=== PATIENT | female | born 1950 | race Caucasian/White ===

== ENCOUNTER → 2020-04-06 09:21 | Outpatient (BNVA) | payer MEDICARE, SELFPAY | PROVIDERS: PCP Nurse Practitioner Family; Referring Provider Nurse Practitioner Family; Visit Provider Nurse Practitioner Family | DX: I25.10 Atherosclerotic heart disease of native coronary artery without angina pectoris (principal); I48.0 Paroxysmal atrial fibrillation; I05.0 Rheumatic mitral stenosis; I73.9 Peripheral vascular disease, unspecified; I70.1 Atherosclerosis of renal artery; I10 Essential (primary) hypertension; E78.5 Hyperlipidemia, unspecified; E11.9 Type 2 diabetes mellitus without complications; Z79.01 Long term (current) use of anticoagulants; Z79.899 Other long term (current) drug therapy; Z95.2 Presence of prosthetic heart valve | CPT/HCPCS: 99214 ==

== ENCOUNTER → 2020-04-26 08:53 | Outpatient (BNVA) | payer MEDICARE, SELFPAY | PROVIDERS: PCP Nurse Practitioner Family; Referring Provider Nurse Practitioner Family; Visit Provider Internal Medicine Cardiovascular Disease | DX: I70.1 Atherosclerosis of renal artery (principal); I48.0 Paroxysmal atrial fibrillation; I50.32 Chronic diastolic (congestive) heart failure; I73.9 Peripheral vascular disease, unspecified; I44.7 Left bundle-branch block, unspecified; I05.0 Rheumatic mitral stenosis; I25.10 Atherosclerotic heart disease of native coronary artery without angina pectoris; I65.23 Occlusion and stenosis of bilateral carotid arteries; Z79.01 Long term (current) use of anticoagulants; Z95.2 Presence of prosthetic heart valve | CPT/HCPCS: 99205 ==

== ENCOUNTER 2020-04-29 08:23 | Outpatient (REF) | payer MEDICARE, SELFPAY ==
--- NOTE | 2020-04-29 08:28 | MM_ITS ---
EXAMINATION: MM SCREENING DIGITAL BREAST TOMOSYNTHESIS, BILATERAL CLINICAL INFORMATION: Screening. Asymptomatic. The lifetime risk of breast cancer based on the Tyrer-Cuzick Model is 3%. COMPARISON: Mammography: 08/10/2017, 06/19/2016 TECHNIQUE: Digital breast tomosynthesis is performed in both the craniocaudal and mediolateral oblique views along with computer-aided detection (CAD). Synthesized 2D images are generated from the tomosynthesis. FINDINGS: There are scattered areas of fibroglandular density (ACR BI-RADS breast composition Category b). Parenchymal pattern is similar to prior studies. There is no significant mass or architectural abnormality. Small circumscribed nodule central anterior right breast is stable 2016. Skin contours are smooth. There are scattered bilateral calcifications in each breast. There are some increased punctate calcifications anterior upper outer left breast for which patient will be recalled to fully characterize. There is no focal grouping or pleomorphic types suspected. MM/MM tomosynthesis screening BI IMPRESSION: 1. Left: Subtle increased punctate calcifications anterior upper outer left breast, likely benign. 2. Right: No mammographic evidence of malignancy. ASSESSMENT: BI-RADS 0: Incomplete - Need Additional Imaging Evaluation RECOMMENDATION: 1. Additional views of the left breast (magnification CC, magnification ML). 2. Radiology department staff will contact the patient for additional imaging. This patient's information was entered into a reminder system with a target due date for their next mammogram.
== END 2020-04-29 08:24 | disposition home or self-care (01) ==
LOC: HO.MAMMO 08:23
PROVIDERS: PCP Nurse Practitioner Family; Visit Provider Nurse Practitioner Family
DX: Z12.31 Encounter for screening mammogram for malignant neoplasm of breast (principal)
CPT/HCPCS: 77063; 77067

== ENCOUNTER 2020-05-06 12:32 | Outpatient (REF) | payer MEDICARE, SELFPAY ==
--- NOTE | 2020-05-06 | MM_ITS ---
EXAMINATION: MM DIAGNOSTIC DIGITAL MAMMOGRAPHY, LEFT CLINICAL INFORMATION: Left breast increasing calcifications. COMPARISON: Mammography: April 29, 2020 and studies dating back to March 30, 2015 TECHNIQUE: Digital mammography is performed in the following views: Magnification craniocaudal and 90 degree mediolateral views left breast FINDINGS: There are scattered areas of fibroglandular density (ACR BI-RADS breast composition Category b). The calcifications within the lateral aspect of the left breast are scattered and grouped and similar in appearance to calcifications seen elsewhere within both breasts. No branching forms identified. No associated soft tissue masses. Results are provided to the patient at time of visit by the technologist. MM/MM added views LT IMPRESSION: Probable benign left breast calcifications. 6 month follow-up magnification views recommended. ASSESSMENT: BI-RADS 3: Probably Benign RECOMMENDATION: Diagnostic mammography in 6 months. This patient's information was entered into a reminder system with a target due date for their next mammogram.
== END 2020-05-06 12:33 | disposition home or self-care (01) ==
LOC: HO.MAMMO 12:32
PROVIDERS: PCP Nurse Practitioner Family; Visit Provider Nurse Practitioner Family
DX: R92.1 Mammographic calcification found on diagnostic imaging of breast (principal)
CPT/HCPCS: 77065

== ENCOUNTER → 2020-07-19 08:21 | Outpatient (BNVA) | payer MEDICARE, SELFPAY | PROVIDERS: PCP Nurse Practitioner Family; Visit Provider Internal Medicine Cardiovascular Disease | DX: I50.9 Heart failure, unspecified (principal); I48.0 Paroxysmal atrial fibrillation; Z95.2 Presence of prosthetic heart valve; I70.1 Atherosclerosis of renal artery; I73.9 Peripheral vascular disease, unspecified; I44.7 Left bundle-branch block, unspecified; I25.10 Atherosclerotic heart disease of native coronary artery without angina pectoris; I05.0 Rheumatic mitral stenosis | CPT/HCPCS: 99212 ==

== ENCOUNTER 2020-07-20 13:00 | Outpatient (REF) | payer MEDICARE, SELFPAY ==
[2020-07-20 14:34] LABS: Estimated Average Glucose 151 mg/dL; Hemoglobin A1c % 6.9 %
[2020-07-20 14:36] LABS: Anion Gap 16 (12-20); Blood Urea Nitrogen 22 mg/dL (9-16); Calcium 9.1 mg/dL (8.4-10.2); Carbon Dioxide 29 mmol/L (22-29); Chloride 100 mmol/L (96-108); Cholesterol 155 mg/dL; Estimated Glomerular Filt Rate > 60; Glucose Fasting 175 mg/dL (60-99); HDL Cholesterol 45 mg/dL; LDL Cholesterol Calculated 84 mg/dl; Potassium 3.9 mmol/l (3.3-5.1); Sodium 141 mmol/L (135-145); Triglycerides 130 mg/dL
[2020-07-20 14:44] LABS: Creatinine Urine 155.53 mg/dL; Microalbum/Creatinine Ratio Ur 8.3 ug/mg cr
== END 2020-07-20 13:01 | disposition home or self-care (01) ==
LOC: HO.HMGCLDS 13:00
PROVIDERS: PCP Nurse Practitioner Family; Visit Provider Internal Medicine Cardiovascular Disease
DX: E11.9 Type 2 diabetes mellitus without complications (principal)
CPT/HCPCS: 36415; 80048; 80061; 82043; 83036

== ENCOUNTER 2020-11-05 11:16 | Outpatient (REF) | payer MEDICARE, SELFPAY ==
--- NOTE | ~2020-11-05 | MM_ITS ---
EXAMINATION: MM DIAGNOSTIC DIGITAL BREAST TOMOSYNTHESIS, LEFT CLINICAL INFORMATION: Short interval six-month follow-up probable benign regional increased calcifications left breast. The lifetime risk of breast cancer based on the Tyrer-Cuzick Model is 3%. COMPARISON: Mammography: 05/06/2020, 04/29/2020 (BI-RADS 0), 08/10/2017, 06/19/2016 TECHNIQUE: Digital breast tomosynthesis is performed in both the craniocaudal and mediolateral oblique views along with computer-aided detection (CAD). Synthesized 2D images are generated from the tomosynthesis. Additional magnification CC and magnification ML views are obtained. FINDINGS: There are scattered areas of fibroglandular density (ACR BI-RADS breast composition Category b). There are central anterior mid upper outer breast, early ductal secretory and round, similar to prior diagnostic exam. No significant changes from prior study. The remainder of the breast is unremarkable. Left breast calcifications will be reassessed again at time of annual bilateral mammography, due in 6 months. Results are provided to the patient at time of visit by the technologist. MM/MM tomosynthesis diagnostic LT IMPRESSION: Left breast calcifications, predominantly round and early ductal secretory, appear similar to prior diagnostic exam. No significant change. ASSESSMENT: BI-RADS 3: Probably Benign RECOMMENDATION: Diagnostic mammography at time of annual bilateral exam, due in 6 months. This patient's information was entered into a reminder system with a target due date for their next mammogram.
== END 2020-11-05 11:17 | disposition home or self-care (01) ==
LOC: HO.MAMMO 11:16
PROVIDERS: PCP Nurse Practitioner Family; Visit Provider Nurse Practitioner Family
DX: R92.1 Mammographic calcification found on diagnostic imaging of breast (principal)
CPT/HCPCS: 77061; 77065

== ENCOUNTER 2020-12-07 09:34 | Outpatient (REF) | payer MEDICARE, SELFPAY ==
--- NOTE | ~2020-12-07 | US_ITS ---
EXAMINATION: US EXTRACRANIAL CAROTID DUPLEX, BILATERAL CLINICAL INFORMATION: Carotid stenosis. COMPARISON: Previous exams, most recent December 2019. TECHNIQUE: Real-time ultrasound and Doppler techniques (integrating B-mode 2-D vascular images, Doppler spectral analysis and color-flow Doppler imaging) were utilized to interrogate the extracranial carotid arteries, the vertebral arteries and proximal subclavian arteries bilaterally. The degree of stenosis is determined by criteria similar to NASCET. FINDINGS: Right Side: 1. There is significant atherosclerotic plaque seen in the bifurcation/proximal ICA region. 2. The common carotid artery PSV proximally is 79 cm/s and distally 105 cm/s. 3. The proximal internal carotid artery velocities are 138 cm/s systolic and 28 cm/s diastolic. 4. The proximal external carotid artery PSV is 126 cm/s. 5. The vertebral artery shows antegrade flow. 6. The subclavian artery waveforms are normal. Left Side: 1. There is significant atherosclerotic plaque seen in the bifurcation/proximal ICA region. 2. The common carotid artery PSV proximally is 96 cm/s and distally 96 cm/s. 3. The proximal internal carotid artery velocities are 87 cm/s systolic and 27 cm/s diastolic. 4. The proximal external carotid artery PSV is 176 cm/s. 5. The vertebral artery shows antegrade flow. 6. The subclavian artery waveforms are normal. US/US carotid duplex BI IMPRESSION: 1. RIGHT: Significant atherosclerotic plaque. 50-79% right ICA stenosis stenosis by velocity criteria. 2. LEFT: Significant atherosclerotic plaque. 0-49% left ICA stenosis by velocity criteria. 3. There is no change in the category severity of disease when compared to the previous study dated December 2019.
== END 2020-12-07 09:35 | disposition home or self-care (01) ==
LOC: HO.US 09:34
PROVIDERS: Visit Provider Surgery Vascular Surgery
DX: I65.23 Occlusion and stenosis of bilateral carotid arteries (principal)
CPT/HCPCS: 93880

== ENCOUNTER → 2020-12-09 09:05 | Outpatient (BNVA) | payer MEDICARE, SELFPAY | PROVIDERS: PCP Nurse Practitioner Family; Visit Provider Surgery Vascular Surgery | DX: I65.23 Occlusion and stenosis of bilateral carotid arteries (principal); Z79.899 Other long term (current) drug therapy | CPT/HCPCS: Q3014 ==

== ENCOUNTER → 2020-12-31 09:22 | Outpatient (REF) | payer MEDICARE, SELFPAY ==
--- NOTE | 2020-12-31 09:26 | CA_ITS ---
Transthoracic Echocardiogram Patient (Last, First, Middle): Karishma Dwyer M Gender: Female Date of : 1950 Age: 70 Procedure Date: 12/31/2020 Procedure Type: Transthoracic Echocardiogram Location: OP Height: 167.64 cm Weight: 81.65 kg BSA: 1.91 m2 Heart Rate: bpm BP: 134 / 70 mmHg Senior Engineer: Mikala MD: Christo Andrew MD Anodizing Line Operator: Christo Andrew MD Symptoms: I50.9 - Heart failure, unspecified Study Quality: Fair ECG Rhythm: Sinus Conclusions: - 1. Normal LV systolic function with impaired relaxation filling pattern 2. Moderately dilated left atrium 3. Normally functioning bioprosthetic aortic valve with mean gradient of about 9 mm of mercury 2, similar to last year 4. Calcific mitral stenosis which appears to be at least moderate with mean gradient of 7.23 mm of mercury 5. No gross pericardial effusion Findings Left Ventricle Normal left ventricular size, thickness, and systolic function. The visually estimated ejection fraction is between 60-65%. Spectral Doppler is indicative of an impaired relaxation filling pattern. Right Ventricle Normal right ventricular cavity size and systolic function. Atria The left atrium is moderately dilated. There is no evidence of interatrial shunt. The right atrium is likely dilated. Aortic Valve A bioprosthetic aortic valve is present. The prosthetic aortic valve appears to be functioning normally. The aortic valve was not well visualized. The mean gradient is 9 mmHg. Mitral Valve There is severe anterior and posterior mitral leaflet thickening. There is moderate anterior and severe posterior mitral annular calcification. There is severe mitral annular calcification. There is mild to moderate mitral valve regurgitation. There is moderate mitral valve stenosis. Pulmonic Valve The pulmonic valve was not well visualized. Tricuspid Valve Likely normal tricuspid valve structure and function. Tricuspid regurgitation envelope is inadequate for calculation of right ventricular systolic pressure. Great Vessels All visible segments of the aorta are normal in size. The pulmonary artery was not well visualized. Venous The inferior vena cava is normal in size and collapses greater than 50% with inspiration. Pericardium/Pleural There is no evidence of pericardial effusion. Prior Study Comparison No significant change compared to prior study dated: 02/26/2020. Measurements 2D Linear Measurements RVIDd: 2.62 IVSd: 1.31 0.6-0.9/0.6-1.0 cm LVIDd: 4.96 3.9-5.3/4.2-5.9 cm LVIDs: 3.44 2.0-3.6 cm LVPWd: 0.93 0.7-1.1 cm Ao Root: 2.10 2.1-3.5 cm LA Diam: 4.70 2.7-3.8/3.0-4.0 cm LV Mass: 260.32 67-162/88-224 g LVOT Diam: 2.02 3.0+(-)1.3 cm Mitral Valve MV VTI: 0.64 MV Pk Jaydon: 1.96 MV Mn Jaydon: 1.29 MV Pk Grad: 15.36 MV Mn Grad: 7.23 MV Pk E: 1.51 MV PK A: 1.67 MV Decel Time: 476.87 E/A: 0.90 E'Lateral: 0.03 E'Medial: 0.04 PHT: 125.35 Decel [place]: 3.16 MR VTI: 1.78 Aortic Valve AoV Pk Jaydon: 2.19 AoV Mn Jaydon: 1.38 AoV VTI: 0.41 AoV Pk Grad: 19.23 Aov Mn Grad: 8.83 LVOT LVOT Pk Jaydon: 1.18 LVOT Mn Jaydon: 0.74 LVOT VTI: 0.25 LVOT Pk Grad: 5.57 LVOT Mn Grad: 2.58 LVOT Diam: 2.02 LVOT Area: 3.20 Diastolic Function MV Pk E: 1.51 MV Pk A: 1.67 E/A: 0.90 E'Medial: 0.04 E' Laterial: 0.03 Tricuspid Valve RA Press: 3.00 Great Vessels Aorta Ao Root-2D: 2.10 2.0-3.7 cm Ao Asc: 2.70 2.1-3.4 cm Ao Arch: 3.27 Updated in Other Vendor System with Status of Final Christo Andrew MD electronically signed on 01/01/2021 2:12:19 PM with status of Final
== END ==
LOC: HO.CARD 09:22
PROVIDERS: Visit Provider Internal Medicine Cardiovascular Disease
DX: I50.9 Heart failure, unspecified (principal); I44.7 Left bundle-branch block, unspecified; I05.0 Rheumatic mitral stenosis; I48.0 Paroxysmal atrial fibrillation; Z95.2 Presence of prosthetic heart valve
CPT/HCPCS: 93306

== ENCOUNTER → 2021-02-11 11:06 | Outpatient (BNVA) | payer MEDICARE, SELFPAY | PROVIDERS: PCP Nurse Practitioner Family; Referring Provider Nurse Practitioner Family; Visit Provider Internal Medicine Cardiovascular Disease | DX: J81.1 Chronic pulmonary edema (principal); I48.0 Paroxysmal atrial fibrillation; I05.0 Rheumatic mitral stenosis; Z95.2 Presence of prosthetic heart valve | CPT/HCPCS: Q3014 ==

== ENCOUNTER 2021-02-28 12:45 | Outpatient (REF) | payer MEDICARE, SELFPAY ==
--- NOTE | ~2021-02-28 | XR_ITS ---
EXAMINATION: XR CHEST CLINICAL INFORMATION: Chronic pulmonary edema. J81.1 COMPARISON: None TECHNIQUE: 2 views of the chest were obtained. FINDINGS: There is an intra-aortic stent graft/TAVR. The heart is normal in size. The vascularity is normal. There is no pneumothorax, vascular congestion, infiltrate, or effusion. The costophrenic sulci are clear. The hilar and mediastinal contours are normal. Bony structures show mild multilevel degenerative changes thoracic spine. There is a small bilobed circumscribed benign-appearing sclerotic lesion in the lateral left humeral head. No endosteal scalloping. No periostitis. XR/XR chest 2V IMPRESSION: Postsurgical changes. Heart size normal. No vascular congestion, infiltrate, or effusion.
[2021-02-28 14:42] LABS: Alanine Aminotransferase 40 U/L (0-31); Albumin Level 3.9 g/dL (3.5-5.0); Alkaline Phosphatase 79 U/L (39-117); Anion Gap 16 (12-20); Aspartate Amino Transferase 25 U/L (5-31); Bilirubin Total 0.7 mg/dL (0.0-1.0); Blood Urea Nitrogen 20 mg/dL (9-16); Calcium 9.3 mg/dL (8.4-10.2); Carbon Dioxide 27 mmol/L (22-29); Chloride 100 mmol/L (96-108); Estimated Glomerular Filt Rate > 60; Glucose Random 196 mg/dL (60-115); Sodium 139 mmol/L (135-145); Total Protein 6.5 g/dL (6.5-8.0)
== END 2021-02-28 12:46 | disposition home or self-care (01) ==
LOC: HO.HMGCX 12:45
PROVIDERS: PCP Nurse Practitioner Family; Visit Provider Internal Medicine Cardiovascular Disease
DX: J81.1 Chronic pulmonary edema (principal)
CPT/HCPCS: 36415; 71046; 80053

== ENCOUNTER 2021-03-03 08:43 | Outpatient (REF) | payer MEDICARE, SELFPAY ==
--- NOTE | ~2021-03-03 | MR_ITS ---
EXAMINATION: MR ANGIOGRAPHY ABDOMEN Interventional Radiologist: Kody Donald M.D., F.S.I.R., F.A.C.R. CLINICAL INFORMATION: This is a 71-year-old female with chronic pulmonary edema. Follow-up to ultrasound. COMPARISON: Comparison is made to a CT scan of the abdomen dated 05/13/2018. TECHNIQUE: An MR angiogram of the abdomen using 20 cc of Gadavist contrast. Images were evaluated on an independent dedicated 3-D workstation and 3-D images were reconstructed with concurrent radiologist supervision and subsequently interpreted. FINDINGS: There is diffuse irregular atherosclerotic disease within the infrarenal abdominal aorta. There is no abdominal aortic aneurysm. There is a high-grade stenosis at the origin of the left common iliac artery. There is irregular atherosclerotic plaque in the proximal left common iliac artery. There is occlusion at the origin of the right common iliac artery. There is severe disease in the bilateral iliac arteries. There is 50% narrowing at the origin of the celiac artery. There is 50% narrowing at the origin of the superior mesenteric artery. There is 75% narrowing at the origin of the inferior mesenteric artery. The renal arteries appear single bilaterally. The renal arteries originate within heavy atherosclerotic plaque of the abdominal aorta. There is 50% narrowing at the origin of the right renal artery. There is 75% narrowing at the origin of the left renal artery. There is diffuse disease bilaterally with in the mid and distal renal arteries. MR/MR angio abdomen wo/w con IMPRESSION: 1. There is diffuse irregular atherosclerotic disease within the abdominal aorta without evidence of abdominal aortic aneurysm. 2. There is a high-grade stenosis of left common iliac artery and occlusion of the right common iliac artery. 3. There is 50% narrowing of the right renal artery and 75% narrowing of the left renal artery.
== END 2021-03-03 08:44 | disposition home or self-care (01) ==
LOC: HO.MRI 08:43
PROVIDERS: PCP Nurse Practitioner Family; Visit Provider Internal Medicine Cardiovascular Disease
DX: J81.1 Chronic pulmonary edema (principal)
CPT/HCPCS: 74185; A9585

== ENCOUNTER → 2021-03-28 14:53 | Outpatient (BNVA) | payer MEDICARE, SELFPAY | PROVIDERS: PCP Nurse Practitioner Family; Referring Provider Nurse Practitioner Family; Visit Provider Internal Medicine Cardiovascular Disease | DX: J81.1 Chronic pulmonary edema (principal); I25.10 Atherosclerotic heart disease of native coronary artery without angina pectoris; I48.0 Paroxysmal atrial fibrillation; Z95.2 Presence of prosthetic heart valve | CPT/HCPCS: 99212 ==

== ENCOUNTER → 2021-04-07 10:54 | Outpatient (BNVA) | payer MEDICARE, SELFPAY | PROVIDERS: PCP Nurse Practitioner Family; Referring Provider Nurse Practitioner Family; Visit Provider Surgery Vascular Surgery | DX: I73.9 Peripheral vascular disease, unspecified (principal); I70.1 Atherosclerosis of renal artery | CPT/HCPCS: 99212 ==

== ENCOUNTER 2021-04-25 12:24 | Outpatient (REF) | payer MEDICARE, SELFPAY ==
--- NOTE | ~2021-04-25 | US_ITS ---
EXAMINATION: NONINVASIVE ASSESSMENT OF THE ARTERIES OF BOTH LOWER EXTREMITIES WITH BILATERAL LOWER EXTREMITY DUPLEX Interventional Radiologist: Kody Donald M.D., F.S.I.R., F.A.C.R. CLINICAL INFORMATION: Bilateral leg cramps. Coronary artery disease. Peripheral arterial disease. TECHNIQUE: Bilateral Doppler techniques with wave form analysis and measurement of velocities in the common femoral, profunda femoral, superficial femoral, popliteal and tibial arteries. The study was performed only at rest. COMPARISON: Comparison is made to the previous study dated 03/22/2020. There was no previous ankle-brachial index obtained. FINDINGS: a) AT REST: RIGHT LEG: Right direct duplex Doppler findings: There is luminal narrowing in the proximal and mid SFA is occluded. There is monophasic flow seen throughout the right lower extremity. There is partial reconstitution of the distal superficial femoral artery. There is shotty inguinal lymphadenopathy. This appears similar to the previous study. * Common femoral artery: 59 cm/s, Diastolic flow reversal: No * Superficial femoral artery (proximal, mid and distal): Occluded. Diastolic flow reversal: No * Popliteal artery: 27 cm/s. Previously, 22 cm/s, Diastolic flow reversal: No * Posterior tibial artery: 29 cm/s. Previously, 18 cm/s, Diastolic flow reversal: No * The right ankle-brachial index is 0.35. LEFT LEG: Left direct duplex Doppler findings: There may be an increasing stenosis in the common femoral artery. The left superficial femoral artery is occluded. There is is monophasic flow seen throughout the left lower extremity. There is shotty inguinal lymphadenopathy. * Common femoral artery: 239 cm/s. Previously, 129 cm/s, Diastolic flow reversal: No. This appears worse and may represent a developing stenosis. * Superficial femoral artery (proximal, mid, distal): Occluded. * Popliteal artery: 45 cm/s. Previously, 46 cm/s, Diastolic flow reversal: No * Posterior tibial artery: 41 cm/s. Previously, 20 cm/s, Diastolic flow reversal: No * The left ankle-brachial index is 0.56. SUNNY Reference: * >0.97-1.25 = normal - no significant arterial disease * 0.75-0.96 = mild peripheral arterial disease * 0.5-0.74 = moderate peripheral arterial disease * <0.50 = severe peripheral arterial disease US/US arterial duplex LE BI IMPRESSION: 1. Again noted are bilateral SFA occlusions. Possible increasing stenosis in the left common femoral artery. 2. Bilateral shotty inguinal lymphadenopathy.
== END 2021-04-25 12:25 | disposition home or self-care (01) ==
LOC: HO.US 12:24
PROVIDERS: PCP Nurse Practitioner Family; Visit Provider Surgery Vascular Surgery
DX: I73.9 Peripheral vascular disease, unspecified (principal)
CPT/HCPCS: 93923; 93925

== ENCOUNTER → 2021-05-03 14:18 | Outpatient (BNVA) | payer MEDICARE, SELFPAY | PROVIDERS: PCP Nurse Practitioner Family; Referring Provider Nurse Practitioner Family; Visit Provider Internal Medicine Cardiovascular Disease | DX: I25.10 Atherosclerotic heart disease of native coronary artery without angina pectoris (principal); J81.1 Chronic pulmonary edema; Z95.2 Presence of prosthetic heart valve | CPT/HCPCS: 99212 ==

== ENCOUNTER → 2021-05-05 13:56 | Outpatient (BNVA) | payer MEDICARE, SELFPAY | PROVIDERS: PCP Nurse Practitioner Family; Visit Provider Surgery Vascular Surgery | DX: I73.9 Peripheral vascular disease, unspecified (principal); I70.1 Atherosclerosis of renal artery | CPT/HCPCS: 99212 ==

== ENCOUNTER 2021-05-11 14:27 | Outpatient (REF) | payer MEDICARE, SELFPAY ==
--- NOTE | ~2021-05-11 | MM_ITS ---
EXAMINATION: MM DIAGNOSTIC DIGITAL BREAST TOMOSYNTHESIS, BILATERAL CLINICAL INFORMATION: Left breast calcifications. Right breast screening. The lifetime risk of breast cancer based on the Tyrer-Cuzick Model is 3.1%. COMPARISON: Mammography: 11/05/2020 and studies dating back to 11/16/2009. TECHNIQUE: Digital breast tomosynthesis is performed in both the craniocaudal and mediolateral oblique views along with computer-aided detection (CAD). Synthesized 2D images are generated from the tomosynthesis. Additional spot magnification views of the left breast in craniocaudal and 90-degree mediolateral views performed. FINDINGS: There are scattered areas of fibroglandular density (ACR BI-RADS breast composition Category b). No new abnormal mass or suspicious grouping of microcalcifications seen within the right breast. The lateral right breast calcifications appear essentially stable. One-year follow-up diagnostic mammography with left breast magnification views suggested. Results are provided to the patient at time of visit by the technologist. MM/MM tomosynthesis diagnostic BI IMPRESSION: There are no significant changes from prior study. ASSESSMENT: BI-RADS 3: Probably benign. RECOMMENDATION: Diagnostic mammography at time of next annual exam, due in 12 months. This patient's information was entered into a reminder system with a target due date for their next mammogram.
== END 2021-05-11 14:28 | disposition home or self-care (01) ==
LOC: HO.MAMMO 14:27
PROVIDERS: Visit Provider Nurse Practitioner Family
DX: R92.1 Mammographic calcification found on diagnostic imaging of breast (principal)
CPT/HCPCS: 77062; 77066

== ENCOUNTER 2021-05-17 06:38 | Outpatient (REF) | payer MEDICARE, SELFPAY ==
[2021-05-17 12:18] LABS: Alanine Aminotransferase 29 U/L (0-31); Albumin Level 4.3 g/dL (3.5-5.0); Alkaline Phosphatase 72 U/L (39-117); Anion Gap 12 (12-20); Aspartate Amino Transferase 20 U/L (5-31); Bilirubin Total 0.5 mg/dL (0.0-1.0); Blood Urea Nitrogen 17 mg/dL (9-16); Calcium 9.3 mg/dL (8.4-10.2); Carbon Dioxide 29 mmol/L (22-29); Chloride 103 mmol/L (96-108); Estimated Glomerular Filt Rate > 60; Glucose Random 131 mg/dL (60-115); Magnesium 1.9 mg/dL (1.6-2.6); Potassium 4.3 mmol/L (3.3-5.1); Sodium 140 mmol/L (135-145); Total Protein 6.9 g/dL (6.5-8.0)
== END 2021-05-17 06:39 | disposition home or self-care (01) ==
LOC: HO.HMGCLDS 06:38
PROVIDERS: PCP Nurse Practitioner Family; Visit Provider Surgery Vascular Surgery
DX: E87.8 Other disorders of electrolyte and fluid balance, not elsewhere classified (principal)
CPT/HCPCS: 36415; 80053; 83735

== ENCOUNTER 2021-05-19 07:47 | Outpatient (REF) | payer MEDICARE, SELFPAY ==
--- NOTE | ~2021-05-19 | CT_ITS ---
EXAMINATION: CTA ABDOMEN, PELVIS AND LOWER EXTREMITY RUNOFF WITH CONTRAST HISTORY: Peripheral vascular disease. DESCRIPTION: Routine abdominal aorta and lower extremity runoff CTA protocol with contrast was performed. 100 mL Omnipaque 350 was administered. Images were reviewed and processed on an independent dedicated 3-D workstation and 3-D images were reconstructed with concurrent radiologist supervision and subsequently interpreted. The images were reviewed and postprocessed on a dedicated 3-D workstation. COMPARISON: MRI abdomen on 03/03/2021. FINDINGS: VASCULAR: Heart: The visualized heart is normal in size. No pericardial effusion. Abdominal Aorta: Moderate to severe atherosclerosis. Normal caliber, widely patent. Mesenteric Arteries: The celiac axis, superior mesenteric artery and inferior mesenteric artery are patent. Renal Arteries: There is mild ostial stenosis of the right renal artery. The right renal artery is otherwise patent. There are 2 left renal arteries, the inferior of which is dominant. There is heavy calcification at the origin of the left inferior renal artery resulting in a greater than 50% stenosis. The inferior left renal artery is otherwise patent. The left superior renal artery is diminutive but patent. Inferior Vena Cava: Normal caliber. Right Lower Extremity: Common iliac artery: Occluded. External iliac artery: Multifocal moderate to high-grade stenosis. Diminutive in caliber. Internal iliac artery: Heavy atherosclerosis, likely occluded proximally with filling via collaterals. Common femoral artery: 75% stenosis related to plaque. Superficial femoral artery: Occluded. Distal reconstitution via deep muscular collaterals at the level of the distal thigh. Profunda femoris artery: Widely patent. Popliteal artery: Patent without high-grade stenosis. Anterior tibial artery: Patent to the foot. Posterior tibial artery: Mild multifocal stenosis however widely patent to the foot. Peroneal artery: Patent to the ankle. Left Lower Extremity: Common iliac artery: Multifocal moderate stenosis. External iliac artery: Multifocal high-grade stenosis, small caliber though patent. Internal iliac artery: Heavy calcification though appears patent. Common femoral artery: Heavy calcification, evaluation is somewhat limited due to beam hardening from an adjacent hip prosthesis. Likely 50-60% stenosed. Superficial femoral artery: Occluded. There is distal reconstitution at the level of the distal thigh via deep muscular collaterals. Profunda femoris artery: Normal caliber, widely patent. Popliteal artery: Normal caliber, widely patent. Anterior tibial artery: Occluded in the proximal calf. Posterior tibial artery: Calcification proximally results in [id number] stenosis however the INVESTMENT RECOVERY TECHNICIAN is patent to the foot. Peroneal artery: Patent to the ankle. NONVASCULAR: Lung Bases: The visualized lung bases are unremarkable. Liver: The liver is diffusely low in attenuation consistent with steatosis. No focal hepatic lesions identified. Gallbladder: Not visualized. Pancreas: Unremarkable. Spleen: Unremarkable. Adrenal Glands: Unremarkable. Kidneys and Ureters: Symmetric nephrograms. Mild bilateral renal cortical thinning. Subcentimeter hypodensities are too small to characterize. Bladder: Obscured by beam hardening from a left hip prosthesis. Gastrointestinal Tract: The small and large bowel are unremarkable. The appendix is unremarkable. Abdominal Wall: No significant hernia is appreciated. Lymph Nodes: Normal. Pelvis: Pelvic structures are poorly evaluated due to beam hardening. Osseous Structures: Left hip prosthesis in appropriate alignment. No suspicious lesions. CT/CT angio abd aorta runoff IMPRESSION: 1. Heavy aortic atherosclerotic disease without evidence of aneurysm. 2. The right common iliac artery is occluded. 3. The bilateral superficial femoral arteries are occluded. There is distal reconstitution of the bilateral SFAs at the distal thigh via collaterals. 4. Three-vessel runoff to the right lower extremity. 5. Two-vessel runoff to the left lower extremity.
[2021-05-19] MEDS: iohexoL 350 MG/ML 100 ML INFUS..BTL IV (09:09)
== END 2021-05-19 07:48 | disposition home or self-care (01) ==
LOC: HO.CT 07:47
PROVIDERS: PCP Nurse Practitioner Family; Visit Provider Surgery Vascular Surgery
DX: I73.9 Peripheral vascular disease, unspecified (principal)
CPT/HCPCS: 75635; Q9967

== ENCOUNTER → 2021-05-24 09:03 | Outpatient (BNVA) | payer MEDICARE, SELFPAY | PROVIDERS: PCP Nurse Practitioner Family; Visit Provider Surgery Vascular Surgery | DX: I73.9 Peripheral vascular disease, unspecified (principal); I70.1 Atherosclerosis of renal artery | CPT/HCPCS: 99212 ==

== ENCOUNTER → 2021-06-01 05:59 | Day surgery (SDC) | payer MEDICARE, SELFPAY ==
[2021-06-01 06:22] VITALS: BMI 28.4
[2021-06-01 06:25] VITALS: BMI 28.0
[2021-06-01 06:30] LABS: Basophils Percent Auto 0.1 % (0-2); Hematocrit 41.7 % (37.0-47.0); Hemoglobin 13.4 g/dl (12.0-16.0); Imm Gran Abs Auto 0.04 X10*3/uL (0.00-0.03); Imm Gran Pct Auto 0.4 % (0.0-0.4); Lymphocytes Absolute Auto 0.7 X10*3/uL (1.2-4.9); Lymphocytes Percent Auto 7.8 % (20-40); MANUAL DIFF FLAG SCAN; Mean Corpuscular HGB Conc 32.1 g/dl (31.0-35.0); Mean Corpuscular Hemoglobin 27.5 pg (27.0-33.0); Mean Corpuscular Volume 85.5 fL (80.0-98.0); Mean Platelet Volume 10.5 fL (9.4-12.3); Monocytes Absolute Auto 0.1 X10*3/uL (0.1-1.2); Monocytes Percent Auto 1.5 % (2-11); Neutrophils Absolute Auto 8.1 x10*3/uL (2.0-8.3); Neutrophils Percent Auto 90.2 % (45-73); Platelet Count 222 X10*3/uL (160-400); Red Blood Count 4.88 X10*6/uL (4.20-5.50); SCAN SMEAR FLAG 1
[2021-06-01 06:41] LABS: Glucose, Whole Blood 370 mg/dL (60-115)
[2021-06-01 06:50] LABS: Anion Gap 14 (12-20); Blood Urea Nitrogen 25 mg/dL (9-16); Calcium 9.9 mg/dL (8.4-10.2); Carbon Dioxide 26 mmol/L (22-29); Chloride 102 mmol/L (96-108); Creatinine Clr Calc Pharmacy 47.6; Estimated Glomerular Filt Rate 47; Glucose Random 424 mg/dL (60-115); Potassium 4.3 mmol/L (3.3-5.1); Sodium 138 mmol/L (135-145)
[2021-06-01 06:57] LABS: Prothrombin Time 11.7 SEC (9.9-13.0)
[2021-06-01 07:07] LABS: SLIDE REVIEW VERIFIED
== END ==
PROVIDERS: PCP Nurse Practitioner Family; Visit Provider Surgery Vascular Surgery
DX: I70.1 Atherosclerosis of renal artery (principal); Z53.09 Procedure and treatment not carried out because of other contraindication
CPT/HCPCS: 36415; 80048; 82947; 85025; 85610; 85730

== ENCOUNTER 2021-06-22 06:36 | Day surgery (SDC) | payer MEDICARE, SELFPAY ==
[2021-06-16 15:55] VITALS: BMI 28.4
[2021-06-22] VITALS (7 sets, daily range): BP systolic 128–151; BP diastolic 72–91; PULSE 78–96; RESP 16–20; TEMP 36.1–36.6; O2SAT 91–97
--- NOTE | 2021-06-22 07:02 | PC.NURSE ---
red area right groin dr forrest aware
[2021-06-22] MEDS: 0.9 % Sodium Chloride 1,000 ML 100 ML IVCONT (07:25)
[2021-06-22 07:48] LABS: Glucose, Whole Blood 383 mg/dL (60-115)
--- NOTE | 2021-06-22 09:24 | W.PM.OPN ---
Operative Note Operative Note Date of Service: 06/22/21 Narrative: Angiogram report from [facility] Preoperative diagnosis: Atherosclerosis of Left lower extremity with activity limiting claudication 2. Left renal artery stenosis Postoperative diagnosis: Same Procedure: 1. Ultrasound-guided left common femoral access 2. Aortogram with left lower extremity runoff 3. Left renal artery stenting 4. Left common iliac stenting Surgeon:Nathanael Medeiros M.D., FACS, RPVI Diving Fisher:None Anesthesia: Local with moderate conscious sedation. Total intraservice moderate sedation time was 60 minutes. I monitored the patient's level of consciousness and physiologic status continuously throughout the procedure. Specimens:none Drains:none Estimated blood loss: Less than 10 ml Implant: [employer] 6 x 14 renal stent; Medtr[employer] visi pro 8 x 17 balloon expandable stent Indications: 71-year-old female with significant peripheral vascular disease and history of renal artery stenosis presents for endovascular intervention. The patient has signed the informed consent after reviewing risks, complications, benefits, and alternatives previously discussed with the patient. The patient was given the opportunity to ask any additional questions or voice any concerns. All questions were answered to the patient's satisfaction. Procedure in detail: Patient was brought to the angiography suite prior to which a time-out was called for patient identification and site verification. Bilateral groins were prepped and draped in the standard surgical fashion. Under ultrasound guidance leftcommon femoral was punctured with micro puncture needle and wire. Subsequently a precision 4 [place] sheath was then placed. Clydewire was advanced to the level of the aorta. 4 [place] Flush catheter was brought up and parked at the level of the renal arteries. Aortogram was then undertaken. Catheter was brought down to the level of the iliac bifurcation. Iliacs were subsequently imaged. At this time we did magnification and orthogonal views of the renal arteries. We then administered 3000 units of systemic heparin. We brought in an angled 5 [place] sheath. We selectively cannulated the left renal artery with an 018 wire and a 4 [place] angled glide catheter. Once in position we advanced a 6 x 14 balloon expandable renal stent. Once into the ostium inappropriately placed with just a mm to into the aorta the stent was then deployed into the left renal artery. Once this was accomplished completion imaging was then undertaken. We then exchanged out for a short 6 [place] sheath. We turned our attention to the iliac. Prior to this an 035 glidewire Advantage was then placed. We then plasty did the common iliac with an 8 x 20 balloon and subsequently placed a visi Pro 8 x 17 balloon expandable stent. Completion imaging was then undertaken. StarClose closure device was then deployed. Interpretation of films: 1. Ultrasound demonstrates appropriate femoral puncture. Image of which was saved. 2. Aortogram demonstrates appropriate caliber aorta. Minimal disease. Appropriate take-off of the renals. 3. Iliac images demonstrate right-sided iliac occlusion left side high-grade stenosis at the common iliac rest of the iliac vessels were within normal limits with mild to moderate stenosis. 4. Left Leg Common femoral artery: Moderate disease Profundus Femoris: No significant disease Superficial femoral artery: Occlusion Popliteal artery (p1,p2,p3): Unable to visualize Anterior tibial artery: Unable to visualize Peroneal artery: Unable to visualize Posterior tibial artery: Unable to visualize Dorsalis pedis/plantar arch: Not seen Conclusion: 1. Successful left renal artery stent and left iliac stent 2. Anticoagulation status: Continue with aspirin and Eliquis This note is constructed using voice recognition software. While every effort has been made to ensure accuracy, firer diesel locomotive errors may have been included. Thank you for allowing me to participate in the care of your patient. Yours sincerely, Nathanael Medeiros MD, FACS, R.P.V.I.
== END 2021-06-22 11:38 | disposition home or self-care (01) ==
PROVIDERS: PCP Nurse Practitioner Family; Visit Provider Surgery Vascular Surgery
DX: E11.51 Type 2 diabetes mellitus with diabetic peripheral angiopathy without gangrene (principal); I70.212 Atherosclerosis of native arteries of extremities with intermittent claudication, left leg; Z79.4 Long term (current) use of insulin; I70.1 Atherosclerosis of renal artery; I65.29 Occlusion and stenosis of unspecified carotid artery; I11.0 Hypertensive heart disease with heart failure; I50.9 Heart failure, unspecified; I05.0 Rheumatic mitral stenosis; I25.10 Atherosclerotic heart disease of native coronary artery without angina pectoris; I48.0 Paroxysmal atrial fibrillation; Z95.4 Presence of other heart-valve replacement; I35.0 Nonrheumatic aortic (valve) stenosis; Z87.891 Personal history of nicotine dependence; Z91.041 Radiographic dye allergy status; Z91.040 Latex allergy status; Z88.0 Allergy status to penicillin
CPT/HCPCS: 37221; 37236; 76937; 82947; 99152; 99153; C1725; C1760; C1769; C1876; C1887; C1894; J2250; J3010; Q9967

== ENCOUNTER 2021-06-30 06:56 | Outpatient (REF) | payer MEDICARE, SELFPAY ==
[2021-06-30 11:19] LABS: Appearance Urine CLEAR; Color Urine YELLOW; Glucose Urine UA 250 MG/DL (NEG); Leukocyte Esterase Urine NEG (NEG); Nitrite Urine NEG (NEG); PH 5.5 (5.0-8.0); Specific Gravity - Urine 1.025 (1.005-1.025); UACC Culture Trigger NO; Urine Blood TRACE (NEG); Urine Ketones NEG (NEG); Urine Protein NEG (NEG-TRACE)
[2021-06-30 11:21] LABS: Estimated Average Glucose 194 mg/dL; Hemoglobin A1c % 8.4 %
[2021-06-30 11:54] LABS: Alanine Aminotransferase 30 U/L (0-31); Albumin Level 4.2 g/dL (3.5-5.0); Alkaline Phosphatase 105 U/L (39-117); Anion Gap 13 (12-20); Aspartate Amino Transferase 14 U/L (5-31); Bilirubin Total 0.6 mg/dL (0.0-1.0); Blood Urea Nitrogen 23 mg/dL (9-16); Calcium 9.7 mg/dL (8.4-10.2); Carbon Dioxide 29 mmol/L (22-29); Chloride 102 mmol/L (96-108); Cholesterol 116 mg/dL; Estimated Glomerular Filt Rate 54; Glucose Random 219 mg/dL (60-115); HDL Cholesterol 35 mg/dL; LDL Cholesterol Calculated 52 mg/dl; Potassium 4.3 mmol/L (3.3-5.1); Sodium 140 mmol/L (135-145); Total Protein 7.2 g/dL (6.5-8.0); Triglycerides 149 mg/dL
[2021-06-30 11:58] LABS: TSH reflex Free T4 1.19 uIU/mL (0.32-4.0)
[2021-06-30 12:01] LABS: Calcium Oxalate Crystals Urine 2+ /LPF; Squamous Epithelial Cell Urine 1+ /LPF
[2021-06-30 12:02] LABS: Creatinine Urine 134.66 mg/dL; Microalbum/Creatinine Ratio Ur 6.6 ug/mg cr; RBC Urine 0-2 /HPF (0); WBC Urine 0 /HPF (0-4)
== END 2021-06-30 06:57 | disposition home or self-care (01) ==
LOC: HO.HMGCLDS 06:56
PROVIDERS: PCP Nurse Practitioner Family; Visit Provider Nurse Practitioner Family
DX: E11.9 Type 2 diabetes mellitus without complications (principal)
CPT/HCPCS: 36415; 80053; 80061; 81001; 82043; 83036; 84443

== ENCOUNTER → 2021-07-07 09:02 | Outpatient (BNVA) | payer MEDICARE, SELFPAY | PROVIDERS: PCP Nurse Practitioner Family; Visit Provider Surgery Vascular Surgery | DX: I73.9 Peripheral vascular disease, unspecified (principal); I70.1 Atherosclerosis of renal artery | CPT/HCPCS: 99212 ==

== ENCOUNTER 2021-08-15 07:19 | Outpatient (REF) | payer MEDICARE, SELFPAY ==
[2021-08-15 12:08] LABS: Anion Gap 13 (12-20); Blood Urea Nitrogen 24 mg/dL (9-16); Calcium 9.7 mg/dL (8.4-10.2); Carbon Dioxide 30 mmol/L (22-29); Chloride 101 mmol/L (96-108); Estimated Glomerular Filt Rate 53; Glucose Random 174 mg/dL (60-115); Potassium 4.2 mmol/L (3.3-5.1); Sodium 140 mmol/L (135-145)
[2021-08-15 16:36] LABS: Urine Cytology See Pathology rpt
[2021-08-15 16:52] LABS: Appearance Urine CLEAR; Color Urine YELLOW; Glucose Urine UA 500 MG/DL (NEG); Leukocyte Esterase Urine NEG (NEG); Nitrite Urine POS (NEG); PH 5.5 (5.0-8.0); Specific Gravity - Urine 1.025 (1.005-1.025); UACC Culture Trigger YES; Urine Blood NEG (NEG); Urine Ketones NEG (NEG); Urine Protein NEG (NEG-TRACE)
[2021-08-15 17:49] LABS: Bacteria Urine 4+ /LPF; Calcium Oxalate Crystals Urine 4+ /LPF; RBC Urine 0 /HPF (0); Squamous Epithelial Cell Urine 2+ /LPF; WBC Urine 0 /HPF (0-4)
== END 2021-08-15 07:20 | disposition home or self-care (01) ==
LOC: HO.HMGCLDS 07:19
PROVIDERS: Surgery Vascular Surgery; Visit Provider Nurse Practitioner Family
DX: R31.29 Other microscopic hematuria (principal); I50.9 Heart failure, unspecified
CPT/HCPCS: 36415; 80048; 81001; 81003; 87086; 87088; 87186; 88112

== ENCOUNTER → 2021-08-30 09:06 | Outpatient (BNVA) | payer MEDICARE, SELFPAY | PROVIDERS: PCP Nurse Practitioner Family; Referring Provider Nurse Practitioner Family; Visit Provider Internal Medicine Cardiovascular Disease | DX: I48.0 Paroxysmal atrial fibrillation (principal); I25.10 Atherosclerotic heart disease of native coronary artery without angina pectoris; I05.0 Rheumatic mitral stenosis; J81.1 Chronic pulmonary edema; Z95.2 Presence of prosthetic heart valve | CPT/HCPCS: 99212 ==

== ENCOUNTER 2021-09-12 15:17 | Outpatient (REF) | payer MEDICARE, SELFPAY ==
--- NOTE | ~2021-09-12 | CT_ITS ---
EXAMINATION: CTA ABDOMEN, PELVIS AND LOWER EXTREMITY RUNOFF WITH CONTRAST HISTORY: Peripheral vascular disease. DESCRIPTION: Routine abdominal aorta and lower extremity runoff CTA protocol with contrast was performed. 100 mL Omnipaque 350 was administered. Images were reviewed and processed on an independent dedicated 3-D workstation and 3-D images were reconstructed with concurrent radiologist supervision and subsequently interpreted. The images were reviewed and postprocessed on a dedicated 3-D workstation. COMPARISON: CTA runoff on May 19, 2021, MRI abdomen on 03/03/2021. FINDINGS: VASCULAR: Heart: The visualized heart is normal in size. No pericardial effusion. Abdominal Aorta: Moderate to severe atherosclerosis. Normal caliber, widely patent. Mesenteric Arteries: The celiac axis, superior mesenteric artery and inferior mesenteric artery are patent. Renal Arteries: There is mild ostial stenosis of the right renal artery. The right renal artery is otherwise patent. There are 2 left renal arteries, the inferior of which is dominant. There is heavy calcification at the origin of the left inferior renal artery resulting in a greater than 50% stenosis. The inferior left renal artery is otherwise patent. The left superior renal artery is diminutive but patent. Inferior Vena Cava: Normal caliber. Right Lower Extremity: Common iliac artery: Occluded. External iliac artery: Multifocal moderate to high-grade stenosis. Diminutive in caliber. Internal iliac artery: Heavy atherosclerosis, likely occluded proximally with filling via collaterals. Common femoral artery: 75% stenosis related to plaque. Superficial femoral artery: Occluded. Distal reconstitution via deep muscular collaterals at the level of the distal thigh. Profunda femoris artery: Widely patent. Popliteal artery: Patent without high-grade stenosis. Anterior tibial artery: Patent to the foot. Posterior tibial artery: Mild multifocal stenosis however widely patent to the foot. Peroneal artery: Patent to the ankle. Left Lower Extremity: Common iliac artery: Multifocal moderate stenosis. External iliac artery: Multifocal high-grade stenosis, small caliber though patent. Internal iliac artery: Heavy calcification though appears patent. Common femoral artery: Heavy calcification, evaluation is somewhat limited due to beam hardening from an adjacent hip prosthesis. Likely than 60% stenosed. Superficial femoral artery: Occluded. There is distal reconstitution at the level of the distal thigh via deep muscular collaterals. Profunda femoris artery: Normal caliber, widely patent. Popliteal artery: Normal caliber, widely patent. Anterior tibial artery: Occluded in the proximal calf. Posterior tibial artery: Calcification proximally results in [id number] stenosis however the OPHTHALMIC AIDE is patent to the foot. Peroneal artery: Patent to the ankle. NONVASCULAR: Lung Bases: The visualized lung bases are unremarkable. Liver: The liver is diffusely low in attenuation consistent with steatosis. No focal hepatic lesions identified. Gallbladder: Not visualized. Pancreas: Unremarkable. Spleen: Unremarkable. Adrenal Glands: Unremarkable. Kidneys and Ureters: Symmetric nephrograms. Mild bilateral renal cortical thinning. Subcentimeter hypodensities are too small to characterize. Bladder: Obscured by beam hardening from a left hip prosthesis. Gastrointestinal Tract: The small and large bowel are unremarkable. The appendix is unremarkable. Abdominal Wall: No significant hernia is appreciated. Lymph Nodes: Normal. Pelvis: Pelvic structures are poorly evaluated due to beam hardening. Osseous Structures: Left hip prosthesis in appropriate alignment. No suspicious lesions. CT/CT angio abd aorta runoff IMPRESSION: 1. No significant change from May 19, 2021. Heavy aortic atherosclerotic disease without evidence of aneurysm. 2. The right common iliac artery is occluded. 3. The bilateral superficial femoral arteries are occluded. There is distal reconstitution of the bilateral SFAs at the distal thigh via collaterals. 4. Three-vessel runoff to the right lower extremity. 5. Two-vessel runoff to the left lower extremity.
[2021-09-12] MEDS: iohexoL 350 MG/ML 100 ML INFUS..BTL IV (16:21)
== END 2021-09-12 15:18 | disposition home or self-care (01) ==
LOC: HO.CT 15:17
PROVIDERS: Visit Provider Surgery Vascular Surgery
DX: I70.1 Atherosclerosis of renal artery (principal)
CPT/HCPCS: 75635; Q9967

== ENCOUNTER 2021-10-03 10:24 | Outpatient (REF) | payer MEDICARE, SELFPAY ==
--- NOTE | ~2021-10-03 | US_ITS ---
EXAMINATION: NONINVASIVE ASSESSMENT OF THE ARTERIES OF BOTH LOWER EXTREMITIES WITH PVR EXAM AND BILATERAL LOWER EXTREMITY DUPLEX CLINICAL INFORMATION: Peripheral vascular disease. TECHNIQUE: Ankle pulse volume recordings, ankle pressure measurements and ankle brachial indices were obtained of the lower extremity arterial system bilaterally. Additionally, duplex Doppler techniques were used with wave form analysis and measurement of velocities in the common femoral, profunda femoral, superficial femoral, popliteal and tibial arteries. The study was performed only at rest. COMPARISON: None. FINDINGS: ANKLE-BRACHIAL INDEX: Right: Not obtained, inaudible Left: 0.6. PVR WAVEFORM: Right: Irregular, abnormal Left: Dampened, loss of dicrotic notch DIRECT DUPLEX DOPPLER FINDINGS: RIGHT LEG: Common femoral artery: 96 cm/s, diastolic flow reversal: No. Profunda femoris artery: 71 cm/s, diastolic flow reversal: No. Superficial femoral artery: Occluded Popliteal artery: 35 cm/s, diastolic flow reversal: No. Posterior tibial artery: 30cm/s, diastolic flow reversal: No. Peroneal artery: Not visualized LEFT LEG: Common femoral artery: 137 cm/s, diastolic flow reversal: No. Profunda femoris artery: 119 cm/s, diastolic flow reversal: No. Superficial femoral artery: Occluded Popliteal artery: 39 cm/s, diastolic flow reversal: No. Posterior tibial artery: 55cm/s, diastolic flow reversal: No. Peroneal artery: 32.6cm/s, diastolic flow reversal: No. US/US arterial duplex LE BI IMPRESSION: RIGHT LEG: SUNNY unable to be obtained. Duplex ultrasound reveals monophasic waveforms within the common femoral artery consistent with known inflow disease. The SFA is persistently occluded. Monophasic flow is present within the posterior tibial artery. The peroneal artery is not visualized. LEFT LEG: SUNNY is 0.6. Flow within the left common femoral and profunda femoris arteries is turbulent. The SFA is persistently occluded. Flow is identified within the posterior tibial and peroneal arteries. SUNNY REFERENCE: - >0.97-1.25 = normal - no significant arterial disease. - 0.75-0.96 = mild peripheral arterial disease. - 0.5-0.74 = moderate peripheral arterial disease. - <0.50 = severe peripheral arterial disease.
== END 2021-10-03 10:25 | disposition home or self-care (01) ==
LOC: HO.US 10:24
PROVIDERS: PCP Nurse Practitioner Family; Visit Provider Surgery Vascular Surgery
DX: I73.9 Peripheral vascular disease, unspecified (principal); I77.1 Stricture of artery
CPT/HCPCS: 93923; 93925

== ENCOUNTER → 2021-10-11 10:14 | Outpatient (BNVA) | payer MEDICARE, SELFPAY | PROVIDERS: PCP Nurse Practitioner Family; Visit Provider Surgery Vascular Surgery | DX: I73.9 Peripheral vascular disease, unspecified (principal); I70.1 Atherosclerosis of renal artery | CPT/HCPCS: 99212 ==

== ENCOUNTER → 2021-10-13 08:50 | Outpatient (BNVA) | payer MEDICARE, SELFPAY | PROVIDERS: PCP Nurse Practitioner Family; Referring Provider Nurse Practitioner Family; Visit Provider Internal Medicine Cardiovascular Disease | DX: I50.32 Chronic diastolic (congestive) heart failure (principal); I05.0 Rheumatic mitral stenosis; I48.0 Paroxysmal atrial fibrillation; I25.10 Atherosclerotic heart disease of native coronary artery without angina pectoris; Z95.2 Presence of prosthetic heart valve | CPT/HCPCS: 99212 ==

== ENCOUNTER 2021-11-23 13:48 | Outpatient (REF) | payer MEDICARE, SELFPAY ==
--- NOTE | ~2021-11-23 | MM_ITS ---
EXAMINATION: BONE DENSITOMETRY CLINICAL INDICATION: Menopausal. COMPARISON: Baseline BD dated 09/19/2016. TECHNIQUE: Using a [employer] DXA System (software version: 13.1) manufactured by [employer], dual-energy x-ray absorptiometry was performed of the lumbar spine and right hip. Patient with left hip replacement. The images are of good technical quality. Summary results are attached. FINDINGS: AP SPINE L1-L4: Current: BMD 1.595 g/cm2, Z-score 4.6, T-score 3.5, normal, 6.9% increase from baseline (<5% change is not significant). Baseline: BMD 1.492 g/cm2. RIGHT FEMUR, NECK: Current: BMD 0.905 g/cm2, Z-score 0.5, T-score -1.0, normal. Baseline: BMD 1.020 g/cm2. RIGHT FEMUR, TOTAL: Current: BMD 0.899 g/cm2, Z-score 0.3, T-score -0.9, normal, 17.6% decrease from baseline (<5% change is not significant). Baseline: BMD 1.091 g/cm2. IDENTIFIED RISK FACTORS: Early menopause, history of fracture (adult), hysterectomy, secondary osteoporosis. HISTORY OF FRACTURE: Lower leg, hip replacement. MEDICATIONS: Vitamin D. MM/XR DEXA axial skeleton IMPRESSION: 1. DIAGNOSIS: Normal bone density based on the lowest T-score value of -1.0 in the femoral neck applying World Health Organization criteria. 2. 10-YEAR FRACTURE RISK PREDICTION, FRAX: According to the guidelines, FRAX calculation should only be performed on patients in the osteopenia bone density category. Therefore, FRAX was not performed on this patient. 3. Treatment Recommendations: NOF guidelines recommend consideration for treatment in postmenopausal women and men age 50 and older presenting with the following: -A hip or vertebral (clinical or morphometric) fracture. -T-score less than or equal to -2.5 at the femoral neck or spine after appropriate evaluation to exclude secondary causes. -Low bone mass at the hip or spine and a 10-year fracture probability by FRAX of greater than or equal to 3% for hip fracture or greater than or equal to 20% for major osteoporotic fracture based on the [place] adapted WHO algorithm. 4. Other Recommendations: All treatment decisions require clinical judgment and consideration of individual patient factors, including patient preferences, comorbidities, previous drug use, risk factors not captured in the FRAX model (e.g. frailty, falls, vitamin D deficiency, increased bone turnover, interval significant decline in bone density) and possible under or overestimation of fracture risk by FRAX. FUTURE SCAN RECOMMENDATION: People with diagnosed cases of osteoporosis or at high risk for fracture should have regular bone mineral density tests. For patients eligible for Medicare, routine testing is allowed once every 2 years. The testing frequency can be increased to one year for patients who have rapidly progressing disease, those who are receiving or discontinuing medical therapy to restore bone mass, or have additional risk factors.
== END 2021-11-23 13:49 | disposition home or self-care (01) ==
LOC: HO.MAMMO 13:48
PROVIDERS: PCP Nurse Practitioner Family; Visit Provider Nurse Practitioner Family
DX: Z13.820 Encounter for screening for osteoporosis (principal); Z78.0 Asymptomatic menopausal state
CPT/HCPCS: 77080

== ENCOUNTER → 2021-12-13 09:40 | Outpatient (BNVA) | payer MEDICARE, SELFPAY | PROVIDERS: PCP Nurse Practitioner Family; Referring Provider Nurse Practitioner Family; Visit Provider Internal Medicine Cardiovascular Disease | DX: I50.32 Chronic diastolic (congestive) heart failure (principal); I48.0 Paroxysmal atrial fibrillation; I25.10 Atherosclerotic heart disease of native coronary artery without angina pectoris; Z95.2 Presence of prosthetic heart valve | CPT/HCPCS: 99212 ==

== ENCOUNTER 2022-01-05 09:01 | Outpatient (REF) | payer MEDICARE, SELFPAY ==
--- NOTE | ~2022-01-05 | XR_ITS ---
EXAMINATION: XR HIP, RIGHT CLINICAL INFORMATION: Pain right hip COMPARISON: None TECHNIQUE: Two views of the right hip. FINDINGS: There is a moderate loss of right hip joint space with periarticular spurring. No visible acute fracture, dislocation or lytic process seen. SI joints are symmetrical. Incidental finding of partially visualized left total hip prosthesis. XR/XR hip RT min 2V IMPRESSION: Mild degenerative changes right hip joint. No visible acute fracture or dislocation seen. The right hemipelvis appears unremarkable.
--- NOTE | ~2022-01-05 | XR_ITS ---
EXAMINATION: XR WRIST, LEFT CLINICAL INFORMATION: Left wrist pain. COMPARISON: None TECHNIQUE: PA, lateral, and oblique views of the left wrist. FINDINGS: The bones and soft tissues are normal. No fracture. Alignment is anatomic with normal joint spaces. No erosions or abnormal soft tissue calcifications. XR/XR wrist LT 2V IMPRESSION: Unremarkable left wrist exam.
[2022-01-05 09:10] LABS: MANUAL DIFF FLAG NO
[2022-01-05 11:31] LABS: Basophils Percent Auto 0.7 % (0-2); Eosinophils Absolute Auto 0.1 X10*3/uL (0.0-0.4); Eosinophils Percent Auto 1.9 % (0-4); Hematocrit 40.2 % (37.0-47.0); Hemoglobin 12.9 g/dl (12.0-16.0); Imm Gran Abs Auto 0.01 X10*3/uL (0.00-0.03); Imm Gran Pct Auto 0.2 % (0.0-0.4); Lymphocytes Absolute Auto 1.3 X10*3/uL (1.2-4.9); Lymphocytes Percent Auto 31.3 % (20-40); Mean Corpuscular HGB Conc 32.1 g/dl (31.0-35.0); Mean Corpuscular Hemoglobin 27.6 pg (27.0-33.0); Mean Corpuscular Volume 85.9 fL (80.0-98.0); Mean Platelet Volume 10.7 fL (9.4-12.3); Monocytes Absolute Auto 0.5 X10*3/uL (0.1-1.2); Monocytes Percent Auto 11.5 % (2-11); Neutrophils Absolute Auto 2.3 x10*3/uL (2.0-8.3); Neutrophils Percent Auto 54.4 % (45-73); Platelet Count 209 X10*3/uL (160-400); Red Blood Count 4.68 X10*6/uL (4.20-5.50); Red Cell Distribution Width 13.8 % (11.0-16.0); White Blood Count 4.2 X10*3/uL (4.8-10.8)
[2022-01-05 11:38] LABS: Estimated Average Glucose 177 mg/dL; Hemoglobin A1c % 7.8 %
[2022-01-05 11:57] LABS: Appearance Urine HAZY; Color Urine YELLOW; Glucose Urine UA NEG (NEG); Leukocyte Esterase Urine NEG (NEG); Nitrite Urine POS (NEG); PH 5.5 (5.0-8.0); Specific Gravity - Urine 1.025 (1.005-1.025); UACC Culture Trigger YES; Urine Blood NEG (NEG); Urine Ketones NEG (NEG); Urine Protein NEG (NEG-TRACE)
[2022-01-05 12:05] LABS: TSH reflex Free T4 1.01 uIU/mL (0.32-4.0)
[2022-01-05 12:11] LABS: Alanine Aminotransferase 42 U/L (0-31); Albumin Level 4.3 g/dL (3.5-5.0); Alkaline Phosphatase 80 U/L (39-117); Anion Gap 15 (12-20); Aspartate Amino Transferase 31 U/L (5-31); Bilirubin Total 0.7 mg/dL (0.0-1.0); Blood Urea Nitrogen 18 mg/dL (9-16); Carbon Dioxide 28 mmol/L (22-29); Chloride 101 mmol/L (96-108); Cholesterol 101 mg/dL; Estimated Glomerular Filt Rate 57; Glucose Fasting 171 mg/dL (60-99); HDL Cholesterol 36 mg/dL; LDL Cholesterol Calculated 46 mg/dl; Potassium 3.6 mmol/L (3.3-5.1); Sodium 140 mmol/L (135-145); Triglycerides 96 mg/dL
[2022-01-05 13:29] LABS: Bacteria Urine 4+ /LPF; Squamous Epithelial Cell Urine 1+ /LPF
[2022-01-05 13:30] LABS: RBC Urine 0 /HPF (0)
== END 2022-01-05 09:02 | disposition home or self-care (01) ==
LOC: HO.HMGCLDS 09:01
PROVIDERS: PCP Nurse Practitioner Family; Visit Provider Nurse Practitioner Family
DX: E11.9 Type 2 diabetes mellitus without complications (principal); B96.20 Unspecified Escherichia coli [E. coli] as the cause of diseases classified elsewhere; M25.551 Pain in right hip; M25.532 Pain in left wrist
CPT/HCPCS: 36415; 73100; 73502; 80053; 80061; 81001; 81003; 83036; 84443; 85025; 87086; 87088; 87186

== ENCOUNTER → 2022-01-31 14:14 | Outpatient (BNVA) | payer MEDICARE, SELFPAY | PROVIDERS: PCP Nurse Practitioner Family; Referring Provider Nurse Practitioner Family; Visit Provider Internal Medicine Cardiovascular Disease | DX: I50.32 Chronic diastolic (congestive) heart failure (principal); I48.0 Paroxysmal atrial fibrillation; I25.10 Atherosclerotic heart disease of native coronary artery without angina pectoris; Z95.2 Presence of prosthetic heart valve; Z87.891 Personal history of nicotine dependence | CPT/HCPCS: 99212 ==

== ENCOUNTER → 2022-02-17 08:29 | Outpatient (BNVA) | payer MEDICARE, SELFPAY | PROVIDERS: PCP Nurse Practitioner Family; Referring Provider Nurse Practitioner Family; Visit Provider Internal Medicine Cardiovascular Disease | DX: I25.10 Atherosclerotic heart disease of native coronary artery without angina pectoris (principal); I50.32 Chronic diastolic (congestive) heart failure; I05.0 Rheumatic mitral stenosis; I48.0 Paroxysmal atrial fibrillation; Z95.2 Presence of prosthetic heart valve | CPT/HCPCS: 99212 ==

== ENCOUNTER → 2022-03-27 08:43 | Outpatient (BNVA) | payer MEDICARE, SELFPAY | PROVIDERS: PCP Nurse Practitioner Family; Referring Provider Nurse Practitioner Family; Visit Provider Internal Medicine Cardiovascular Disease | DX: I48.0 Paroxysmal atrial fibrillation (principal); I50.32 Chronic diastolic (congestive) heart failure; I05.0 Rheumatic mitral stenosis; I25.10 Atherosclerotic heart disease of native coronary artery without angina pectoris; Z95.2 Presence of prosthetic heart valve | CPT/HCPCS: 93005; 99212 ==

== ENCOUNTER 2022-05-03 07:57 | Outpatient (REF) | payer MEDICARE, SELFPAY ==
--- NOTE | ~2022-05-03 | US_ITS ---
EXAMINATION: COLOR-FLOW DUPLEX IMAGING OF THE BILATERAL LOWER EXTREMITY ARTERIAL SYSTEM. VELOCITY MEASUREMENTS THROUGHOUT THE FEMORAL ARTERIES WITH ANKLE-BRACHIAL PERIPHERAL ARTERIAL TESTING. CLINICAL INFORMATION: This is a 72-year-old female with peripheral arterial disease. Previous left iliac artery stent. Interventional Radiologist: Kody Donald M.D., F.S.I.R., FBalbirC.Aniket.. TECHNIQUE: Ankle pulse volume recordings, ankle pressure measurements and ankle brachial indices were obtained of the lower extremity arterial system bilaterally. Additionally, duplex Doppler techniques were used with wave form analysis and measurement of velocities in the common femoral, profunda femoral, superficial femoral, popliteal and tibial arteries. The study was performed only at rest. COMPARISON: Comparison is made to the previous study dated 10/03/2021 which demonstrated bilateral abnormal disease. The ankle-brachial index was 0.6 on the left..The previous right leg SUNNY unable to be obtained. Duplex ultrasound reveals monophasic waveforms within the common femoral artery consistent with known inflow disease. The SFA is persistently occluded. Monophasic flow is present within the posterior tibial artery. The peroneal artery is not visualized. The previous left leg SUNNY was 0.6. Flow within the left common femoral and profunda femoris arteries is turbulent. The SFA is persistently occluded. Flow is identified within the posterior tibial and peroneal arteries. FINDINGS: ANKLE-BRACHIAL INDEX: Right: 0.5. Previously, Not obtained, inaudible Left: 0.6. Previously, 0.6. PVR WAVEFORM: Right: Irregular, abnormal Left: Dampened, loss of dicrotic notch DIRECT DUPLEX DOPPLER FINDINGS: RIGHT LEG: Common femoral artery: 102 cm/s and monophasic. Previously, 96 cm/s, diastolic flow reversal: No. Profunda femoris artery: 55 cm/s and monophasic. Previously, 71 cm/s, diastolic flow reversal: No. Superficial femoral artery: Occluded Popliteal artery: 46 cm/s and monophasic. Previously, 35 cm/s, diastolic flow reversal: No. Posterior tibial artery: 22 cm/s and monophasic. Previously, 30cm/s, diastolic flow reversal: No. LEFT LEG: Common femoral artery: 1 17 cm/s and triphasic. Previously, 137 cm/s, diastolic flow reversal: No. Profunda femoris artery: 99 cm/s and monophasic. Previously, 119 cm/s, diastolic flow reversal: No. Superficial femoral artery: Occluded Popliteal artery: 31 cm/s and monophasic. Previously, 39 cm/s, diastolic flow reversal: No. Posterior tibial artery: 30 cm/s and monophasic. Previously, 55cm/s, diastolic flow reversal: No. Bilateral knee joint effusions are evident. US/US arterial duplex LE BI IMPRESSION: RIGHT LEG: The ankle-brachial index measures 0.5. Previously, the SUNNY unable to be obtained. Duplex ultrasound reveals monophasic waveforms within the common femoral artery consistent with known inflow disease. The SFA is persistently occluded. Monophasic flow is present within the posterior tibial artery. LEFT LEG: The ankle-brachial index again measures 0.6. Previously the SUNNY was 0.6. Flow within the left common femoral and profunda femoris arteries is turbulent. The SFA is persistently occluded. Flow is identified within the posterior tibial SUNNY REFERENCE: - >0.97-1.25 = normal - no significant arterial disease. - 0.75-0.96 = mild peripheral arterial disease. - 0.5-0.74 = moderate peripheral arterial disease. - <0.50 = severe peripheral arterial disease.
== END 2022-05-03 07:58 | disposition home or self-care (01) ==
LOC: HO.US 07:57
PROVIDERS: Visit Provider Surgery Vascular Surgery
DX: I73.9 Peripheral vascular disease, unspecified (principal)
CPT/HCPCS: 93923; 93925

== ENCOUNTER → 2022-05-08 10:27 | Outpatient (BNVA) | payer MEDICARE, SELFPAY | PROVIDERS: PCP Nurse Practitioner Family; Referring Provider Nurse Practitioner Family; Visit Provider Internal Medicine Cardiovascular Disease | DX: I50.32 Chronic diastolic (congestive) heart failure (principal); I05.0 Rheumatic mitral stenosis; I48.0 Paroxysmal atrial fibrillation; I25.10 Atherosclerotic heart disease of native coronary artery without angina pectoris; Z95.2 Presence of prosthetic heart valve | CPT/HCPCS: 93005; 99212 ==

== ENCOUNTER → 2022-05-09 09:14 | Outpatient (BNVA) | payer MEDICARE, SELFPAY | PROVIDERS: PCP Nurse Practitioner Family; Visit Provider Surgery Vascular Surgery | DX: I73.9 Peripheral vascular disease, unspecified (principal) | CPT/HCPCS: 99212 ==

== ENCOUNTER 2022-05-15 10:57 | Outpatient (REF) | payer MEDICARE, SELFPAY ==
--- NOTE | ~2022-05-15 | MM_ITS ---
EXAMINATION: MM DIAGNOSTIC DIGITAL BREAST TOMOSYNTHESIS, BILATERAL CLINICAL INFORMATION: Due for yearly. Also follow-up probable benign calcifications anterior upper outer left breast. COMPARISON: Mammography: 05/11/2021, 11/05/2020, 05/06/2020, 04/29/2020 (BI-RADS 0), 08/10/2017 TECHNIQUE: Digital breast tomosynthesis is performed in both the craniocaudal and mediolateral oblique views along with computer-aided detection (CAD). Synthesized 2D images are generated from the tomosynthesis. Additional magnification left CC and magnification left ML views are obtained. FINDINGS: There are scattered areas of fibroglandular density (ACR BI-RADS breast composition Category b). Parenchymal pattern is similar to prior studies and there is no interval mass or architectural abnormality or developing density. Scattered bilateral ductal secretory and round calcifications are again noted. The left breast calcifications for follow-up show no significant change from prior diagnostic exams and are now considered to be benign. The axilla and skin contours are unremarkable. No significant changes. Results are provided to the patient at time of visit by the technologist. MM/MM tomosynthesis diagnostic BI IMPRESSION: -No mammographic evidence of malignancy. -Left breast calcifications for follow-up are similar to prior diagnostic exams and now considered to be benign. ASSESSMENT: BI-RADS 2: Benign RECOMMENDATION: Routine annual mammography screening. This patient's information was entered into a reminder system with a target due date for their next mammogram.
== END 2022-05-15 10:58 | disposition home or self-care (01) ==
LOC: HO.MAMMO 10:57
PROVIDERS: PCP Nurse Practitioner Family; Visit Provider Nurse Practitioner Family
DX: R92.1 Mammographic calcification found on diagnostic imaging of breast (principal)
CPT/HCPCS: 77062; 77066

== ENCOUNTER → 2022-07-11 10:30 | Outpatient (BNVA) | payer MEDICARE, SELFPAY | PROVIDERS: PCP Nurse Practitioner Family; Referring Provider Nurse Practitioner Family; Visit Provider Internal Medicine Cardiovascular Disease | DX: I05.0 Rheumatic mitral stenosis (principal); I48.0 Paroxysmal atrial fibrillation; I25.10 Atherosclerotic heart disease of native coronary artery without angina pectoris; I50.32 Chronic diastolic (congestive) heart failure; Z95.2 Presence of prosthetic heart valve | CPT/HCPCS: 93005; 99212 ==

== ENCOUNTER 2022-10-26 07:36 | Outpatient (REF) | payer MEDICARE, SELFPAY ==
[2022-10-26 11:04] LABS: MANUAL DIFF FLAG NO
[2022-10-26 11:54] LABS: Basophils Percent Auto 0.9 % (0-2); Eosinophils Absolute Auto 0.1 X10*3/uL (0.0-0.4); Eosinophils Percent Auto 3.2 % (0-4); Hematocrit 39.9 % (37.0-47.0); Imm Gran Abs Auto 0.01 X10*3/uL (0.00-0.03); Imm Gran Pct Auto 0.2 % (0.0-0.4); Lymphocytes Absolute Auto 0.9 X10*3/uL (1.2-4.9); Lymphocytes Percent Auto 21.8 % (20-40); Mean Corpuscular HGB Conc 30.1 g/dl (31.0-35.0); Mean Corpuscular Hemoglobin 25.4 pg (27.0-33.0); Mean Corpuscular Volume 84.4 fL (80.0-98.0); Mean Platelet Volume 10.3 fL (9.4-12.3); Monocytes Absolute Auto 0.7 X10*3/uL (0.1-1.2); Neutrophils Absolute Auto 2.5 x10*3/uL (2.0-8.3); Neutrophils Percent Auto 58.9 % (45-73); Platelet Count 188 X10*3/uL (160-400); Red Blood Count 4.73 X10*6/uL (4.20-5.50); White Blood Count 4.3 X10*3/uL (4.8-10.8)
[2022-10-26 12:16] LABS: Alanine Aminotransferase 31 U/L (0-31); Albumin Level 4.2 g/dL (3.5-5.0); Alkaline Phosphatase 93 U/L (39-117); Anion Gap 16 (12-20); Aspartate Amino Transferase 28 U/L (5-31); Bilirubin Total 0.7 mg/dL (0.0-1.0); Blood Urea Nitrogen 21 mg/dL (9-16); Calcium 9.5 mg/dL (8.4-10.2); Carbon Dioxide 27 mmol/L (22-29); Chloride 107 mmol/L (96-108); Cholesterol 122 mg/dL; Estimated Glomerular Filt Rate 48; Glucose Fasting 205 mg/dL (60-99); HDL Cholesterol 43 mg/dL; LDL Cholesterol Calculated 65 mg/dl; Potassium 4.9 mmol/L (3.3-5.1); Sodium 145 mmol/L (135-145); Triglycerides 74 mg/dL
[2022-10-26 12:39] LABS: TSH reflex Free T4 1.24 uIU/mL (0.32-4.0)
== END 2022-10-26 07:37 | disposition home or self-care (01) ==
LOC: HO.HMGCLDS 07:36
PROVIDERS: PCP Nurse Practitioner Family; Visit Provider Nurse Practitioner Family
DX: I21.9 Acute myocardial infarction, unspecified (principal); I10 Essential (primary) hypertension; E11.9 Type 2 diabetes mellitus without complications
CPT/HCPCS: 36415; 80053; 80061; 84443; 85025

== ENCOUNTER → 2022-10-31 13:15 | Outpatient (BNVA) | payer MEDICARE, SELFPAY | PROVIDERS: PCP Nurse Practitioner Family; Referring Provider Nurse Practitioner Family; Visit Provider Internal Medicine Cardiovascular Disease | DX: I44.7 Left bundle-branch block, unspecified (principal); I34.2 Nonrheumatic mitral (valve) stenosis; I25.10 Atherosclerotic heart disease of native coronary artery without angina pectoris; I11.0 Hypertensive heart disease with heart failure; I50.32 Chronic diastolic (congestive) heart failure; I48.0 Paroxysmal atrial fibrillation; U07.0 Vaping-related disorder; Z87.891 Personal history of nicotine dependence; Z95.5 Presence of coronary angioplasty implant and graft; Z95.4 Presence of other heart-valve replacement; Z95.2 Presence of prosthetic heart valve | CPT/HCPCS: 93005; 99212 ==

== ENCOUNTER 2023-01-18 14:30 | Outpatient (AMB) | payer MEDICARE, SELFPAY ==
[2023-01-18 14:40] VITALS: BP 100/64; BMI 29.9
--- NOTE | 2023-01-18 14:40 | MHC.OFFVIS ---
Intake Vital Signs 01/18/23 14:40 Height 5 ft 6 in Weight 185 lb 3.013 oz BMI 29.9 BP 100/64 Blood Pressure Location Lt brachial Position Sitting Intake Visit Reasons: f/up new device ck Intake Note: f/u new device ck [employer] Required: No Allergies adhesive tape [ADHESIVE TAPE] Allergy (Unknown, Verified 01/18/23 14:47) REDNESS,BLEEDING Iodinated Contrast Media [IVP DYE] Allergy (Unknown, Verified 01/18/23 14:47) HIVES Penicillins [PENICILLINS] Allergy (Unknown, Verified 01/18/23 14:47) NOT EFFECTIVE ether Allergy (Verified 01/18/23 14:47) Unknown EITHER Allergy (Unknown, Uncoded 11/02/22 10:22) PONV Flu shot Allergy (Unknown, Uncoded 11/02/22 10:22) unknown coreg Adverse Reaction (Intermediate, Uncoded 11/02/22 10:56) Rash Medication List - Last Reconciled 01/18/23 by Christo Andrew MD amiodarone 200 mg PO DAILY apixaban (Eliquis) 5 mg PO BID 90 days atorvastatin 80 mg PO DAILY blood sugar diagnostic (FreeStyle Lite Strips) tid testing cholecalciferol (vitamin D3) 50 mcg PO DAILY clopidogrel 75 mg PO DAILY diphenhydramine HCl (Benadryl Allergy) 50 mg PO BEDTIME PRN ezetimibe (Zetia) 10 mg PO DAILY FreeStyle Bhavani 2 [place] (flash glucose scanning reader) TID NS FreeStyle Bhavani 2 Sensor (flash glucose sensor) TID NS gabapentin 100 mg PO TID glipizide 10 mg PO DAILY isosorbide mononitrate ER 30 mg PO DAILY lancets (FreeStyle Lancets) bid testing for diabetes losartan 25 mg PO DAILY metformin 500 mg PO BID 90 days metoprolol succinate ER 25 mg PO DAILY nitroglycerin 0 mg sublingual nystatin 1 appl topical BID omega-3 acid ethyl esters 2 caps PO BID 90 days pen needle, diabetic (BD Ultra-Fine Micro Pen Needle) daily, on days not on metformin torsemide 10 mg (1/2 x 20 mg) PO DAILY 30 days HPI HPI Comments History of Present Illness Details Karishma comes for follow-up after placement of biventricular [place] [facility] ICD. Continues to have days when she feels tired but she says she is gradually improving. No hospitalization for heart failure. Denies any progressive shortness of breath, orthopnea, PND, leg edema. Taking all her medications. No lightheadedness, syncope. No ICD discharge. [facility] Medical History Aortic stenosis Carotid artery stenosis Carpal tunnel syndrome Chronic heart failure with preserved ejection fraction (HFpEF) Coronary arteriosclerosis in [place] artery Diabetes HLD (hyperlipidemia) HTN (hypertension) LBBB (left bundle branch block) Mitral stenosis NSTEMI (non-ST elevated myocardial infarction) Paroxysmal atrial fibrillation Peripheral vascular disease Renal artery stenosis Surgical History Mitral valve replaced S/P TAVR (transcatheter aortic valve replacement) Status post peripheral artery angioplasty with insertion of stent Stented coronary artery Family History Father Kidney failure Mother No problems noted. Brother Substance use disorder Social History Housing: House Patient Tobacco Use Status: Former Tobacco user Years Smoked: 59 years and quit 4 years ago e-Cigarette/Vaping Use: Currently Using Second Hand Smoke Exposure: Yes Current occupational status: retired Cognitive needs: No Hearing needs: No Vision needs: No Review of Systems ENT Reports dizziness Card Denies chest pain, Denies chest pain at rest, Denies chest pain with activity, Denies rapid heart rate, Denies pedal edema, Denies edema, Denies leg edema, Denies lightheadedness, Denies palpitations, Denies dyspnea, Denies dyspnea on exertion and Denies orthopnea Resp Denies cough, Denies dyspnea and Denies dyspnea on exertion GI Denies hematochezia and Denies change in stool character Musc Denies abnormal gait, Reports limited range of motion, Reports muscle cramps, Denies muscle weakness, Denies numbness, Denies radiating pain into limb, Denies stiffness and Denies tingling Neuro Denies abnormal gait, Reports dizziness, Denies numbness and Denies tingling Endo Denies palpitations Physical Exam Vital Signs: Last Vital Signs BP 100/64 01/18/23 14:40 BMI result Body Mass Index 29.9 Const General: cooperative, comfortable, alert and awake Nutritional Appearance: overweight and other (Frail elderly woman) Orientation/consciousness: patient oriented x3 Limitations: ambulation with cane HEENT Head: Yes normocephalic and Yes atraumatic Neck Neck: Yes trachea midline, Yes supple and Yes no JVD Resp Effort & Inspection: normal respiratory effort Auscultation: no crackles, no rales, no rhonchi, no wheezes and diminished lung sounds Cardio Jugular venous distension: no JVD Palpation: normal PMI Rate: regular rate Rhythm: regular rhythm Heart sounds: S1 normal heart sound present, S2 normal heart sound present and Other heart sounds present (S4 present) Peripheral pulses: posterior tibial pulses not present and dorsalis pedis pulses not present GI Auscultation: normal bowel sounds Skin General skin exam: ecchymosis Neuro General: patient oriented x3 and no focal motor deficits Extrem General: Yes no clubbing, cyanosis or edema and Yes other (cold distal extremities without any cyanosis) Psych Appearance: grossly normal Office Procedures Cardiac Device Check Cardiac Device Check Details: Biventricular [facility] ICD in place. Programmed in DDD mode, reprogrammed to DDDR mode to provide rate response. Right atrial right ventricular pacing thresholds are excellent and in our capture mode. LV pacing thresholds excellent and reprogrammed to enhance battery life. Atrial sensing is at 1 mV. RV sensing is excellent. Pacing and shock lead impedance is stable. Battery life is at about 6 and half years. No arrhythmias of atrial fibrillation noted. Biventricular pacing 96%. [id number] Cardiac Device Check, multi lead implantable defibrillator Procedure code (CPT) selection complete Assessment & Plan Assessment & Plan (1) Biventricular ICD (implantable cardioverter-defibrillator) in place: Comment: [facility] biventricular ICD placed November 2022 for severe LV systolic dysfunction with left bundle-branch block Code(s): Z95.810 - Presence of automatic (implantable) cardiac defibrillator Plan: Recent implantation of biventricular ICD with no significant improvement in symptoms but says that she is gradually getting better. She has not had any hospitalization with heart failure. Bi V ICD was reprogrammed for adequate functioning. Follow-up remotely every month for heart failure and every 3 months for device check. Will follow up in the clinic in 3 months time. (2) Congestive heart failure: Code(s): I50.9 - Heart failure, unspecified Plan: Heart failure with reduced ejection fraction since development of left bundle-branch block after transcatheter mitral valve replacement. Status post Bi V ICD. Follow-up echocardiogram in 3 months time. Clinically currently appears to be euvolemic and well compensated. Continue current torsemide dose. Continue losartan and metoprolol dose. Cannot up titrate medications due to low blood pressure. Signs and symptoms of heart failure were discussed she understands very well. Advise phase 2 cardiac rehabilitation, however she says she is currently not ready for it. (3) S/P transcatheter mitral valve replacement (TMVR): Code(s): Z95.2 - Presence of prosthetic heart valve Plan: Status post transcatheter mitral valve replacement for calcific severe mitral stenosis. Seems to be clinically working well well colin. Continue to monitor clinically for heart failure symptoms. Currently on full oral anticoagulation with Eliquis. SBE prophylaxis as per ACC/aha guidelines. (4) S/P TAVR (transcatheter aortic valve replacement): Comment: Echo done 02/26/20 shows EF 60-65%, mid LVH, mild to mod MS, normally functioning Bioprosthetic AVR with mean gradiant 8mmhg. Code(s): Z95.2 - Presence of prosthetic heart valve Plan: Status post transcatheter aortic valve replacement which seems to be working well clinically. Continue full oral anticoagulation as above. SBE prophylaxis as per ACC/aha guidelines. (5) Coronary arteriosclerosis in [place] artery: Comment: Cardiac cath done 11/06/18 showing mid and proximal RCA 70% stenosis, ostial LCx 80% stenosis. Managed medically. No report of anginal sounding symptoms. Code(s): I25.10 - Atherosclerotic heart disease of [place] coronary artery without angina pectoris Plan: Diffuse and significant vascular disease including coronary artery disease with prior stenting as well as diffuse peripheral vascular disease, renal artery stenosis. Continue aggressive medical therapy. Continue high-intensity statin therapy with target goal LDL closer to 60 mg/dL. Currently on antiplatelet therapy in addition to oral anticoagulation therapy. There is high risk of bleeding but necessary to reduce vascular events. Continue aggressive management diabetes goal hemoglobin A1c less than 7%. Blood pressure is currently well optimized. (6) Paroxysmal atrial fibrillation: Comment: Hx PAF. No reports of recent heart palpitations. On Metoprolol for rate/ rhythm control. On Eliquis for anticoagulation. No report of bleeding. Code(s): I48.0 - Paroxysmal atrial fibrillation Plan: Paroxysmal atrial fibrillation doing well with rhythm control approach. Currently on amiodarone therapy and tolerating well. Continue amiodarone therapy and maintain rhythm which has helped her heart failure syndrome. Continue full oral anticoagulation with Eliquis. Will follow up in the clinic in 3 months time. Greater than 45 minutes was spent in managing her complex condition. Coding Level of Care Code Est Pt Level 5 (34731) Diagnoses Biventricular ICD (implantable cardioverter-defibrillator) in place Z95.810 Congestive heart failure I50.9 S/P transcatheter mitral valve replacement (TMVR) Z95.2 S/P TAVR (transcatheter aortic valve replacement) Z95.2 Coronary arteriosclerosis in [place] artery I25.10 Paroxysmal atrial fibrillation I48.0 CPT Codes Cardiac Device Check - Cardiac Device 6: [id number] Cardiac Device Check, multi lead implantable defibrillator ([id number])
== END 2023-01-18 14:59 | disposition home or self-care (01) ==
LOC: HO.HCS 14:30
PROVIDERS: PCP Nurse Practitioner Family; Visit Provider Internal Medicine Cardiovascular Disease
DX: I50.9 Heart failure, unspecified (principal); Z95.2 Presence of prosthetic heart valve; I48.0 Paroxysmal atrial fibrillation; I25.10 Atherosclerotic heart disease of native coronary artery without angina pectoris; Z95.810 Presence of automatic (implantable) cardiac defibrillator
CPT/HCPCS: 93284; 99215

== ENCOUNTER → 2023-01-18 14:30 | Outpatient (BNVA) | payer MEDICARE, SELFPAY | PROVIDERS: PCP Nurse Practitioner Family; Visit Provider Internal Medicine Cardiovascular Disease | DX: I50.9 Heart failure, unspecified (principal); I25.10 Atherosclerotic heart disease of native coronary artery without angina pectoris; I48.0 Paroxysmal atrial fibrillation; Z79.01 Long term (current) use of anticoagulants; Z79.899 Other long term (current) drug therapy; Z95.2 Presence of prosthetic heart valve; Z45.02 Encounter for adjustment and management of automatic implantable cardiac defibrillator | CPT/HCPCS: 99212 ==

== ENCOUNTER 2023-02-07 09:09 | Outpatient (AMB) | payer MEDICARE, SELFPAY ==
[2023-02-07 09:39] VITALS: BP 130/68; PULSE 89; O2SAT 98; BMI 30.5
--- NOTE | 2023-02-07 09:39 | MHC.PC.OV ---
Vital Signs 02/07/23 09:39 Height 5 ft 6 in Weight 189 lb 2 oz BMI 30.5 BP 130/68 Blood Pressure Location Rt brachial Position Sitting Pulse 89 Pulse Source Pulse Oximeter Pulse Oximetry (%) 98 Oxygen Delivery Method Room Air Intake Visit Reasons: 3 Month follow up Allergies adhesive tape [ADHESIVE TAPE] Allergy (Unknown, Verified 02/07/23 09:42) REDNESS,BLEEDING Iodinated Contrast Media [IVP DYE] Allergy (Unknown, Verified 02/07/23 09:42) HIVES Penicillins [PENICILLINS] Allergy (Unknown, Verified 02/07/23 09:42) NOT EFFECTIVE ether Allergy (Verified 02/07/23 09:42) Unknown EITHER Allergy (Unknown, Uncoded 02/07/23 09:42) PONV Flu shot Allergy (Unknown, Uncoded 02/07/23 09:42) unknown coreg Adverse Reaction (Intermediate, Uncoded 02/07/23 09:42) Rash Medication List - Last Reconciled 02/07/23 by ANA OconnellP- amiodarone 200 mg PO DAILY apixaban (Eliquis) 5 mg PO BID 90 days atorvastatin 80 mg PO DAILY blood sugar diagnostic (FreeStyle Lite Strips) tid testing cholecalciferol (vitamin D3) 50 mcg PO DAILY clopidogrel 75 mg PO DAILY diphenhydramine HCl (Benadryl Allergy) 50 mg PO BEDTIME PRN ezetimibe (Zetia) 10 mg PO DAILY FreeStyle Bhavani 2 [place] (flash glucose scanning reader) TID NS FreeStyle Bhavani 2 Sensor (flash glucose sensor) TID NS gabapentin 100 mg PO TID glipizide 10 mg PO DAILY isosorbide mononitrate ER 30 mg PO DAILY lancets (FreeStyle Lancets) bid testing for diabetes losartan 25 mg PO DAILY metformin 500 mg PO BID 90 days metoprolol succinate ER 25 mg PO DAILY nitroglycerin 0 mg sublingual nystatin 1 appl topical BID omega-3 acid ethyl esters 2 caps PO BID 90 days pen needle, diabetic (BD Ultra-Fine Micro Pen Needle) daily, on days not on metformin torsemide 10 mg (1/2 x 20 mg) PO DAILY Tobacco use date assessed: 02/07/23 Fall risk assessment: 1 Fall in past year Last assessed Fall Risk: 02/07/23 Dental Screening Dental Screen Date: 02/07/23 Did you have a dental visit in the last 12 months?: No Did you have a dental problem in the last 6 months where you did not have access to dental care?: No Was dental information given to patient?: Patient has dentist HPI 3 Month follow up HPI Details DM: denies any neuropathy, polyuria, polydipsia. pt does not know if she is still taking her losartan, will have her check at home, though cardiology wanted her to continue this. pt is on a statin and ezetimibe. 7.5a1c today. will add jardiance 10mg today. pt understands the s/s of hypoglycemia and how to correct it. [facility] Medical History Aortic stenosis Carotid artery stenosis Carpal tunnel syndrome Chronic heart failure with preserved ejection fraction (HFpEF) Coronary arteriosclerosis in [place] artery Diabetes HLD (hyperlipidemia) HTN (hypertension) LBBB (left bundle branch block) Mitral stenosis NSTEMI (non-ST elevated myocardial infarction) Paroxysmal atrial fibrillation Peripheral vascular disease Renal artery stenosis Surgical History Mitral valve replaced S/P TAVR (transcatheter aortic valve replacement) Status post peripheral artery angioplasty with insertion of stent Stented coronary artery Family History Father Kidney failure Mother No problems noted. Brother Substance use disorder Social History Housing: House Patient Tobacco Use Status: Former Tobacco user Years Smoked: 59 years and quit 4 years ago e-Cigarette/Vaping Use: Currently Using Second Hand Smoke Exposure: Yes Current occupational status: retired Cognitive needs: No Hearing needs: No Vision needs: No Questionnaire Thrive Questionnaire Date Thrive assessed: 07/27/22 LEOBARDO-7 AMB Questionnaire LEOBARDO-7 Date LEOBARDO - 7 assessed: 07/27/22 Source: Developed by Drs. Giacomo Cornell, Liz Timmons, Jorge Chiu and colleagues, with an educational luma from [employer]. Physical exam (Primary Care) Vital Signs: Last Vital Signs Pulse 89 02/07/23 09:39 BP 130/68 02/07/23 09:39 Pulse Ox 98 02/07/23 09:39 Oxygen Delivery Method Room Air 02/07/23 09:39 BMI result Body Mass Index 30.5 Tobacco/Smoking Status: Tobacco use Status Tobacco use date assessed 02/07/23 02/07/23 09:48 Patient Tobacco Use Status Former Tobacco user 02/07/23 09:39 e-Cigarette/Vaping Use Currently Using 02/07/23 09:39 Thrive Assessment: Date of Thrive Assessment Date Thrive assessed 07/27/22 02/07/23 09:39 Const Other: using large walker (upwalker) General: cooperative, healthy appearing and comfortable Resp Other: clear dim bilat Cardio Other: systolic murmur, s1 s2 Skin Other: right plantar aspect of right big toe with callous. + sensation with use of monofilament. Extrem Right lower extremity: no edema Left lower extremity: no edema Psych Appearance: well kempt Results AMB Hemoglobin A1c AMB Hemoglobin A1c 7.5 % Last Edit by MARIN Sethi on 02/07/23 10:05 Results Reviewed Results Reviewed: Laboratory Last Values Hgb A1c (Clinic) 7.5 % (4.0-6.0) H 02/07/23 10:00 Assessment and Plan Assessment & Plan (1) Diabetes: Code(s): E11.9 - Type 2 diabetes mellitus without complications (2) Diabetes mellitus with peripheral angiopathy without gangrene: Code(s): E11.51 - Type 2 diabetes mellitus with diabetic peripheral angiopathy without gangrene Orders: Orders Comprehensive Mckenna. Panel Fast Today E11.51 - Type 2 diabetes mellitus with diabetic peripheral angiopathy without gangrene, E11.9 - Type 2 diabetes mellitus without complications Lipid Panel Today E11.51 - Type 2 diabetes mellitus with diabetic peripheral angiopathy without gangrene, E11.9 - Type 2 diabetes mellitus without complications TSH reflex Free T4 Today E11.51 - Type 2 diabetes mellitus with diabetic peripheral angiopathy without gangrene, E11.9 - Type 2 diabetes mellitus without complications Microalbumin, Random (w Creat) Today E11.51 - Type 2 diabetes mellitus with diabetic peripheral angiopathy without gangrene, E11.9 - Type 2 diabetes mellitus without complications Complete Blood Count Auto Diff Today E11.51 - Type 2 diabetes mellitus with diabetic peripheral angiopathy without gangrene, E11.9 - Type 2 diabetes mellitus without complications UA CC w/rflx Micro + Cult Today E11.51 - Type 2 diabetes mellitus with diabetic peripheral angiopathy without gangrene, E11.9 - Type 2 diabetes mellitus without complications AMB Hemoglobin A1c Today Z13.9 - Encounter for screening, unspecified Medications: New empagliflozin (Jardiance) 10 mg PO DAILY 90 tabs 0RF Refilled ezetimibe (Zetia) 10 mg PO DAILY 90 tabs 3RF isosorbide mononitrate ER 30 mg PO DAILY 90 tabs 2RF Coding Level of Care Code Est Pt Level 3 (20756) Diagnoses Diabetes E11.9 Diabetes mellitus with peripheral angiopathy without gangrene E11.51
== END 2023-02-07 10:23 | disposition home or self-care (01) ==
PROVIDERS: PCP Nurse Practitioner Family; Visit Provider Nurse Practitioner Family
DX: E11.51 Type 2 diabetes mellitus with diabetic peripheral angiopathy without gangrene (principal)
CPT/HCPCS: 83036; 99213

== ENCOUNTER → 2023-03-12 23:59 | Outpatient (BNV) | payer MEDICARE, SELFPAY ==
--- NOTE | 2023-03-12 08:59 | A.OFFVIS_ITS ---
Intake Intake Visit Reasons: Remote ICD Check- [facility] Allergies adhesive tape [ADHESIVE TAPE] Allergy (Unknown, Verified 02/07/23 09:42) REDNESS,BLEEDING Iodinated Contrast Media [IVP DYE] Allergy (Unknown, Verified 02/07/23 09:42) HIVES Penicillins [PENICILLINS] Allergy (Unknown, Verified 02/07/23 09:42) NOT EFFECTIVE ether Allergy (Verified 02/07/23 09:42) Unknown EITHER Allergy (Unknown, Uncoded 02/07/23 09:42) PONV Flu shot Allergy (Unknown, Uncoded 02/07/23 09:42) unknown coreg Adverse Reaction (Intermediate, Uncoded 02/07/23 09:42) Rash PFSH Medical History Aortic stenosis Carotid artery stenosis Carpal tunnel syndrome Chronic heart failure with preserved ejection fraction (HFpEF) Coronary arteriosclerosis in [place] artery Diabetes HLD (hyperlipidemia) HTN (hypertension) LBBB (left bundle branch block) Mitral stenosis NSTEMI (non-ST elevated myocardial infarction) Paroxysmal atrial fibrillation Peripheral vascular disease Renal artery stenosis Surgical History Mitral valve replaced S/P TAVR (transcatheter aortic valve replacement) Status post peripheral artery angioplasty with insertion of stent Stented coronary artery Family History Father Kidney failure Mother No problems noted. Brother Substance use disorder Social History Housing: House Patient Tobacco Use Status: Former Tobacco user Years Smoked: 59 years and quit 4 years ago e-Cigarette/Vaping Use: Currently Using Second Hand Smoke Exposure: Yes Current occupational status: retired Cognitive needs: No Hearing needs: No Vision needs: No Office Procedures Cardiac Device Check Cardiac Device Check Details: Remote ICD report generated 03/12/2023. ICD function is adequate. Bi V pacing 97% of the time [id number] Cardiac Interrogation, implant defibrillator w/interim Procedure code (CPT) selection complete Coding Level of Care Code Procedure Only CPT Codes Cardiac Device Check - Cardiac Device 13: [id number] Cardiac Interrogation, implant defibrillator w/interim ([id number])
== END ==
PROVIDERS: PCP Nurse Practitioner Family; Visit Provider Internal Medicine Cardiovascular Disease
DX: I42.9 Cardiomyopathy, unspecified (principal); Z95.810 Presence of automatic (implantable) cardiac defibrillator
CPT/HCPCS: 93295

== ENCOUNTER → 2023-04-12 23:59 | Outpatient (BNV) | payer MEDICARE, SELFPAY ==
--- NOTE | 2023-04-23 08:47 | MHC.OFFVIS ---
Intake Intake Visit Reasons: Remote ICD Check- [facility] Allergies adhesive tape [ADHESIVE TAPE] Allergy (Unknown, Verified 02/07/23 09:42) REDNESS,BLEEDING Iodinated Contrast Media [IVP DYE] Allergy (Unknown, Verified 02/07/23 09:42) HIVES Penicillins [PENICILLINS] Allergy (Unknown, Verified 02/07/23 09:42) NOT EFFECTIVE ether Allergy (Verified 02/07/23 09:42) Unknown EITHER Allergy (Unknown, Uncoded 02/07/23 09:42) PONV Flu shot Allergy (Unknown, Uncoded 02/07/23 09:42) unknown coreg Adverse Reaction (Intermediate, Uncoded 02/07/23 09:42) Rash PFSH Medical History Aortic stenosis Carotid artery stenosis Carpal tunnel syndrome Chronic heart failure with preserved ejection fraction (HFpEF) Coronary arteriosclerosis in [place] artery Diabetes HLD (hyperlipidemia) HTN (hypertension) LBBB (left bundle branch block) Mitral stenosis NSTEMI (non-ST elevated myocardial infarction) Paroxysmal atrial fibrillation Peripheral vascular disease Renal artery stenosis Surgical History Mitral valve replaced S/P TAVR (transcatheter aortic valve replacement) Status post peripheral artery angioplasty with insertion of stent Stented coronary artery Family History Father Kidney failure Mother No problems noted. Brother Substance use disorder Social History Housing: House Patient Tobacco Use Status: Former Tobacco user Years Smoked: 59 years and quit 4 years ago e-Cigarette/Vaping Use: Currently Using Second Hand Smoke Exposure: Yes Current occupational status: retired Cognitive needs: No Hearing needs: No Vision needs: No Office Procedures Cardiac Device Check Cardiac Device Check Details: Remote ICD report generated 04/13/2023. ICD function is adequate. Bi V pacing 97% of time [id number] Cardiac Interrogation, implant defibrillator w/interim Procedure code (CPT) selection complete Coding Level of Care Code Procedure Only CPT Codes Cardiac Device Check - Cardiac Device 13: [id number] Cardiac Interrogation, implant defibrillator w/interim ([id number])
== END ==
PROVIDERS: PCP Nurse Practitioner Family; Visit Provider Internal Medicine Cardiovascular Disease
DX: I42.9 Cardiomyopathy, unspecified (principal); Z95.810 Presence of automatic (implantable) cardiac defibrillator
CPT/HCPCS: 93295

== ENCOUNTER 2023-04-30 09:48 | Outpatient (AMB) | payer MEDICARE, SELFPAY ==
--- NOTE | 2023-04-30 09:50 | MHC.OFFVIS ---
Intake Vital Signs 04/30/23 09:51 Height 5 ft 6 in Weight 185 lb 3.013 oz BMI 29.9 BP 120/76 Blood Pressure Location Lt brachial Position Sitting Pulse 60 Intake Visit Reasons: 3 month follow up Intake Note: 3 month follow-up ekg and [facility] check hearts been ok Syruper Required: No Allergies adhesive tape [ADHESIVE TAPE] Allergy (Unknown, Verified 02/07/23 09:42) REDNESS,BLEEDING Iodinated Contrast Media [IVP DYE] Allergy (Unknown, Verified 02/07/23 09:42) HIVES Penicillins [PENICILLINS] Allergy (Unknown, Verified 02/07/23 09:42) NOT EFFECTIVE ether Allergy (Verified 02/07/23 09:42) Unknown EITHER Allergy (Unknown, Uncoded 02/07/23 09:42) PONV Flu shot Allergy (Unknown, Uncoded 02/07/23 09:42) unknown coreg Adverse Reaction (Intermediate, Uncoded 02/07/23 09:42) Rash Medication List - Last Reconciled 04/30/23 by Christo Andrew MD amiodarone 200 mg PO DAILY apixaban (Eliquis) 5 mg PO BID 90 days atorvastatin 80 mg PO DAILY blood sugar diagnostic (FreeStyle Lite Strips) tid testing cholecalciferol (vitamin D3) 50 mcg PO DAILY clopidogrel 75 mg PO DAILY diphenhydramine HCl (Benadryl Allergy) 50 mg PO BEDTIME PRN empagliflozin (Jardiance) 10 mg PO DAILY ezetimibe (Zetia) 10 mg PO DAILY FreeStyle Bhavani 2 [place] (flash glucose scanning reader) TID NS FreeStyle Bhavani 2 Sensor (flash glucose sensor) TID NS gabapentin 100 mg PO TID glipizide 10 mg PO DAILY isosorbide mononitrate ER 30 mg PO DAILY lancets (FreeStyle Lancets) bid testing for diabetes losartan 25 mg PO DAILY metformin 500 mg PO BID 90 days metoprolol succinate ER 25 mg PO DAILY nitroglycerin 0 mg sublingual nystatin 1 appl topical BID omega-3 acid ethyl esters 2 caps PO BID 90 days pen needle, diabetic (BD Ultra-Fine Micro Pen Needle) daily, on days not on metformin torsemide 10 mg (1/2 x 20 mg) PO DAILY HPI HPI Comments History of Present Illness Details Karishma comes for follow-up. Patient denies any new cardiac complaints but says is limited exercise activity and feels tired in her legs and has lot of back issues and pain in the back. No cardiac issues. No hospitalization related to heart failure. Denies any prolonged palpitation irregular heartbeat. No orthopnea, PND, leg edema. No lightheadedness, syncope, ICD discharge. Takes all her medications regularly. [facility] Medical History (Updated 04/30/23 @ 10:15 by Christo Andrew MD) Mitral stenosis Chronic heart failure with preserved ejection fraction (HFpEF) LBBB (left bundle branch block) HTN (hypertension) Paroxysmal atrial fibrillation Renal artery stenosis Peripheral vascular disease Aortic stenosis Coronary arteriosclerosis in [place] artery NSTEMI (non-ST elevated myocardial infarction) HLD (hyperlipidemia) Diabetes Carotid artery stenosis Carpal tunnel syndrome Surgical History Mitral valve replaced Stented coronary artery Status post peripheral artery angioplasty with insertion of stent S/P TAVR (transcatheter aortic valve replacement) Family History Father Kidney failure Mother No problems noted. Brother Substance use disorder Social History Housing: House Patient Tobacco Use Status: Former Tobacco user Years Smoked: 59 years and quit 4 years ago e-Cigarette/Vaping Use: Currently Using Second Hand Smoke Exposure: Yes Current occupational status: retired Cognitive needs: No Hearing needs: No Vision needs: No Review of Systems Const Denies chills, Denies fatigue, Denies fever(s), Denies frequent falls, Denies weakness, Denies weight gain and Denies weight loss ENT Denies dizziness Card Denies chest pain, Denies leg edema, Denies lightheadedness, Denies palpitations, Denies dyspnea, Denies dyspnea on exertion, Denies orthopnea and Denies other (loss of consciousness) Resp Denies cough, Denies dyspnea and Denies dyspnea on exertion GI Denies hematochezia and Denies change in stool character Musc Denies abnormal gait, Denies muscle weakness, Denies numbness, Denies radiating pain into limb and Denies tingling Neuro Denies abnormal gait, Denies dizziness, Denies frequent falls, Denies numbness, Denies tingling and Denies weakness Endo Denies fatigue and Denies palpitations Physical Exam Vital Signs: Last Vital Signs Pulse 60 04/30/23 09:51 BP 120/76 04/30/23 09:51 BMI result Body Mass Index 29.9 Const General: cooperative, comfortable, alert and awake Nutritional Appearance: overweight and other (Frail elderly woman) Orientation/consciousness: patient oriented x3 Limitations: ambulation with cane HEENT Head: Yes normocephalic and Yes atraumatic Neck Neck: Yes trachea midline, Yes supple and Yes no JVD Resp Effort & Inspection: normal respiratory effort Auscultation: no crackles, no rales, no rhonchi, no wheezes and diminished lung sounds Cardio Jugular venous distension: no JVD Palpation: normal PMI Rate: regular rate Rhythm: regular rhythm Heart sounds: S1 normal heart sound present, S2 normal heart sound present and Other heart sounds present (S4 present) Peripheral pulses: posterior tibial pulses not present and dorsalis pedis pulses not present GI Auscultation: normal bowel sounds Skin General skin exam: ecchymosis Neuro General: patient oriented x3 and no focal motor deficits Extrem General: Yes no clubbing, cyanosis or edema and Yes other (cold distal extremities without any cyanosis) Psych Appearance: grossly normal Office Procedures Cardiac Device Check Cardiac Device Check Details: Biventricular [facility] ICD in place. Programmed in DDDR at 60 beats per minute. Atrial ventricular sensing is adequate. Atrial and biventricular pacing thresholds excellent. Pacing and shock lead impedance is stable. No arrhythmias detected. Battery life is excellent. Bi V pacing 97% of time. [id number] Cardiac Device Check, multi lead implantable defibrillator Procedure code (CPT) selection complete EKG Details: EKG shows dual AV paced rhythm with LV pacing [id number], Complete Assessment & Plan Assessment & Plan (1) Congestive heart failure: Code(s): I50.9 - Heart failure, unspecified Plan: Patient heart failure syndrome prior due to multiple valvular issues, renal artery stenosis as well as vascular disease and subsequent developed heart failure with reduced ejection fraction after transcatheter mitral valve replacement due to left bundle-branch block. Status post Bi V ICD placement. Has had no hospitalization the last 3 months since I last saw her. Has been doing well. Her main concern currently is lack of exercise capacity due to back pain and weakness in her legs. This needs to follow-up physical therapy. Recommend phase 2 cardiac rehabilitation although her musculoskeletal limitations would prevent her from participating phase 2 cardiac rehabilitation. Continue current diuretic regimen. Continue rhythm control approach. Continue neurohormonal modulation with Jardiance, losartan as well as metoprolol therapy. Follow-up echocardiogram 6 months time. Heart failure management discussed in details. Daily weight monitoring avoidance of salt loading was discussed. Additional diuretics as need be. Goals of therapy were discussed and she is doing well at this point in time. (2) Biventricular ICD (implantable cardioverter-defibrillator) in place: Comment: [facility] biventricular ICD placed November 2022 for severe LV systolic dysfunction with left bundle-branch block Code(s): Z95.810 - Presence of automatic (implantable) cardiac defibrillator Plan: Biventricular ICD in place for severe LV systolic dysfunction with left bundle-branch block post mitral valve replacement. Doing well. Device is working well. Will follow remotely as well as in the clinic in 6 months time. (3) S/P transcatheter mitral valve replacement (TMVR): Code(s): Z95.2 - Presence of prosthetic heart valve Plan: Status post high risk transcatheter mitral valve replacement for severe calcific mitral stenosis. Doing well at this point time. Continue full oral anticoagulation above. SBE prophylaxis as per ACC/aha guidelines. Follow-up echocardiogram 6 months time to assess valve function. (4) S/P TAVR (transcatheter aortic valve replacement): Comment: Echo done 02/26/20 shows EF 60-65%, mid LVH, mild to mod MS, normally functioning Bioprosthetic AVR with mean gradiant 8mmhg. Code(s): Z95.2 - Presence of prosthetic heart valve Plan: Status post transcatheter aortic valve replacement for severe aortic stenosis. Clinically doing well. Continue full oral anticoagulation above. SBE prophylaxis as per ACC/aha guidelines. (5) Paroxysmal atrial fibrillation: Comment: Hx PAF. No reports of recent heart palpitations. On Metoprolol for rate/ rhythm control. On Eliquis for anticoagulation. No report of bleeding. Code(s): I48.0 - Paroxysmal atrial fibrillation Plan: Paroxysmal atrial fibrillation, currently controlled on amiodarone therapy. Has done very well with rhythm control approach will continue pursue rhythm control approach. Continue amiodarone therapy. Will follow-up for amiodarone toxicity every 6 months. Continue full oral anticoagulation, currently on Eliquis 5 mg b.i.d.. Semi annual renal function test should be pursued. (6) Coronary arteriosclerosis in redding artery: Comment: Cardiac cath done 11/06/18 showing mid and proximal RCA 70% stenosis, ostial LCx 80% stenosis. Managed medically. No report of anginal sounding symptoms. Code(s): I25.10 - Atherosclerotic heart disease of redding coronary artery without angina pectoris Plan: Diffuse and significant vascular disease including prior CAD with stenting. Currently no symptoms of angina. Also has renal artery stenosis as well as peripheral vascular disease. Advised to continue follow with vascular surgery. Continue aggressive vascular risk factor modification. On dual therapy with Plavix as well as Eliquis. Continue the same. Continue monitor CBC every 6 months. Continue high-intensity statin therapy with target goal LDL closer to 60 mg/dL. Continue aggressive diabetes management goal hemoglobin A1c less than 7%. Blood pressure is currently well optimized. Will follow up in the clinic in 6 months time. Greater than 45 minutes was spent in managing her complex care. Orders: Orders CA echo transthoracic complete 6 Months I50.9 - Heart failure, unspecified B Type Natriuretic Peptide Today I50.9 - Heart failure, unspecified Basic Metabolic Panel Today I50.9 - Heart failure, unspecified Coding Level of Care Code Est Pt Level 5 (43147) Diagnoses Congestive heart failure I50.9 Biventricular ICD (implantable cardioverter-defibrillator) in place Z95.810 S/P transcatheter mitral valve replacement (TMVR) Z95.2 S/P TAVR (transcatheter aortic valve replacement) Z95.2 Paroxysmal atrial fibrillation I48.0 Coronary arteriosclerosis in redding artery I25.10 CPT Codes Cardiac Device Check - Cardiac Device 6: [id number] Cardiac Device Check, multi lead implantable defibrillator ([id number]) EKG - CPT: 74567-[id number], Complete ([id number])
[2023-04-30 09:51] VITALS: BP 120/76; PULSE 60; BMI 29.9
== END 2023-04-30 10:16 | disposition home or self-care (01) ==
PROVIDERS: PCP Nurse Practitioner Family; Visit Provider Internal Medicine Cardiovascular Disease
DX: I50.9 Heart failure, unspecified (principal); I48.0 Paroxysmal atrial fibrillation; Z95.810 Presence of automatic (implantable) cardiac defibrillator; Z95.2 Presence of prosthetic heart valve; I25.10 Atherosclerotic heart disease of native coronary artery without angina pectoris
CPT/HCPCS: 93284; 99215

== ENCOUNTER 2023-04-30 09:48 | Outpatient (REF) | payer MEDICARE, SELFPAY ==
[2023-04-30 11:34] LABS: Anion Gap 16 (12-20); Blood Urea Nitrogen 21 mg/dL (9-16); Calcium 10.1 mg/dL (8.4-10.2); Carbon Dioxide 26 mmol/L (22-29); Chloride 106 mmol/L (96-108); Estimated Glomerular Filt Rate 43; Glucose Random 86 mg/dL (60-115); Potassium 4.5 mmol/L (3.3-5.1); Sodium 143 mmol/L (135-145)
[2023-04-30 11:41] LABS: B Type Natriuretic Peptide 797 pg/mL (<100)
== END 2023-04-30 09:49 | disposition home or self-care (01) ==
LOC: HO.LAB 09:48
PROVIDERS: PCP Nurse Practitioner Family; Visit Provider Internal Medicine Cardiovascular Disease
DX: I50.9 Heart failure, unspecified (principal); I48.0 Paroxysmal atrial fibrillation; I25.10 Atherosclerotic heart disease of native coronary artery without angina pectoris; Z79.899 Other long term (current) drug therapy; Z95.810 Presence of automatic (implantable) cardiac defibrillator; Z95.2 Presence of prosthetic heart valve
CPT/HCPCS: 36415; 80048; 83880; 93005; 99212

== ENCOUNTER 2023-05-03 07:22 | Outpatient (REF) | payer MEDICARE, SELFPAY ==
[2023-05-03 11:21] LABS: MANUAL DIFF FLAG NO
[2023-05-03 11:35] LABS: Basophils Percent Auto 0.9 % (0-2); Eosinophils Absolute Auto 0.1 X10*3/uL (0.0-0.4); Eosinophils Percent Auto 3.1 % (0-4); Hemoglobin 13.1 g/dl (12.0-16.0); Imm Gran Abs Auto 0.02 X10*3/uL (0.00-0.03); Imm Gran Pct Auto 0.4 % (0.0-0.4); Lymphocytes Absolute Auto 1.2 X10*3/uL (1.2-4.9); Lymphocytes Percent Auto 27.3 % (20-40); Mean Corpuscular HGB Conc 30.5 g/dl (31.0-35.0); Mean Corpuscular Hemoglobin 26.4 pg (27.0-33.0); Mean Corpuscular Volume 86.7 fL (80.0-98.0); Mean Platelet Volume 10.4 fL (9.4-12.3); Monocytes Absolute Auto 0.5 X10*3/uL (0.1-1.2); Monocytes Percent Auto 11.4 % (2-11); Neutrophils Absolute Auto 2.6 x10*3/uL (2.0-8.3); Neutrophils Percent Auto 56.9 % (45-73); Platelet Count 147 X10*3/uL (160-400); Red Blood Count 4.96 X10*6/uL (4.20-5.50); White Blood Count 4.6 X10*3/uL (4.8-10.8)
[2023-05-03 11:40] LABS: Estimated Average Glucose 160 mg/dL; Hemoglobin A1c % 7.2 % (<6.0)
[2023-05-03 11:54] LABS: Appearance Urine Clear; Color Urine Yellow; Glucose Urine UA >=1000 mg/dL (Negative); Leukocyte Esterase Urine Negative (Negative); Nitrite Urine Positive (Negative); PH 5.5 (5.0-9.0); Specific Gravity - Urine >= 1.030 (1.005-1.025); UMIC TRIGGER UACC YES; Urine Blood Negative (Negative); Urine Ketones Negative (Negative); Urine Protein Negative (Neg-Trace)
[2023-05-03 11:59] LABS: Alanine Aminotransferase 27 U/L (0-31); Albumin Level 4.3 g/dL (3.5-5.0); Alkaline Phosphatase 80 U/L (39-117); Anion Gap 10 (12-20); Aspartate Amino Transferase 25 U/L (5-31); Bilirubin Total 0.5 mg/dL (0.0-1.0); Blood Urea Nitrogen 19 mg/dL (9-16); Calcium 9.7 mg/dL (8.4-10.2); Carbon Dioxide 30 mmol/L (22-29); Chloride 107 mmol/L (96-108); Cholesterol 108 mg/dL (<200); Estimated Glomerular Filt Rate 49; Glucose Fasting 110 mg/dL (60-99); HDL Cholesterol 46 mg/dL (>40); LDL Cholesterol Calculated 48 mg/dL (<100); Potassium 4.5 mmol/L (3.3-5.1); Sodium 142 mmol/L (135-145); Total Protein 7.4 g/dL (6.5-8.0); Triglycerides 74 mg/dL (<150)
[2023-05-03 12:08] LABS: Bacteria Urine 4+ (None Seen); Hyaline Casts Urine 0-2 /LPF (0-2); RBC Urine 0-2 /HPF (0-2); Squamous Epithelial Cell Urine 0-2 /HPF (0-2); UACC Culture Trigger YES
[2023-05-03 12:18] LABS: TSH reflex Free T4 1.18 uIU/mL (0.32-4.0)
[2023-05-03 12:29] LABS: Microalbum/Creatinine Ratio Ur 20.2 ug/mg cr (<30)
== END 2023-05-03 07:23 | disposition home or self-care (01) ==
LOC: HO.HMGCLDS 07:22
PROVIDERS: PCP Nurse Practitioner Family; Visit Provider Nurse Practitioner Family
DX: E11.51 Type 2 diabetes mellitus with diabetic peripheral angiopathy without gangrene (principal); R82.90 Unspecified abnormal findings in urine
CPT/HCPCS: 36415; 80053; 80061; 81001; 82043; 82570; 83036; 84443; 85025; 87086; 87088; 87186

== ENCOUNTER → 2023-05-07 23:59 | Outpatient (BNV) | payer MEDICARE, SELFPAY ==
--- NOTE | 2023-05-07 12:26 | A.OFFVIS_ITS ---
Intake Intake Visit Reasons: Remote HF Monitoring- [facility] Allergies adhesive tape [ADHESIVE TAPE] Allergy (Unknown, Verified 02/07/23 09:42) REDNESS,BLEEDING Iodinated Contrast Media [IVP DYE] Allergy (Unknown, Verified 02/07/23 09:42) HIVES Penicillins [PENICILLINS] Allergy (Unknown, Verified 02/07/23 09:42) NOT EFFECTIVE ether Allergy (Verified 02/07/23 09:42) Unknown EITHER Allergy (Unknown, Uncoded 02/07/23 09:42) PONV Flu shot Allergy (Unknown, Uncoded 02/07/23 09:42) unknown coreg Adverse Reaction (Intermediate, Uncoded 02/07/23 09:42) Rash PFSH Medical History (Updated 04/30/23 @ 10:15 by Christo Andrew MD) Mitral stenosis Chronic heart failure with preserved ejection fraction (HFpEF) LBBB (left bundle branch block) HTN (hypertension) Paroxysmal atrial fibrillation Renal artery stenosis Peripheral vascular disease Aortic stenosis Coronary arteriosclerosis in [place] artery NSTEMI (non-ST elevated myocardial infarction) HLD (hyperlipidemia) Diabetes Carotid artery stenosis Carpal tunnel syndrome Surgical History Mitral valve replaced Stented coronary artery Status post peripheral artery angioplasty with insertion of stent S/P TAVR (transcatheter aortic valve replacement) Family History Father Kidney failure Mother No problems noted. Brother Substance use disorder Social History Housing: House Patient Tobacco Use Status: Former Tobacco user Years Smoked: 59 years and quit 4 years ago e-Cigarette/Vaping Use: Currently Using Second Hand Smoke Exposure: Yes Current occupational status: retired Cognitive needs: No Hearing needs: No Vision needs: No Office Procedures Cardiac Device Check Cardiac Device Check Details: Remote HF report detected 05/07. HF parameters are within normal limits. [id number] Cardiac Device Interrogation, cardio physiologic monitor Procedure code (CPT) selection complete Coding Level of Care Code Procedure Only CPT Codes Cardiac Device Check - Cardiac Device 15: [id number] Cardiac Device Interrogation, cardio physiologic monitor ([id number])
== END ==
PROVIDERS: PCP Nurse Practitioner Family; Visit Provider Internal Medicine Cardiovascular Disease
DX: I50.9 Heart failure, unspecified (principal); Z95.810 Presence of automatic (implantable) cardiac defibrillator
CPT/HCPCS: 93297

== ENCOUNTER 2023-05-08 07:49 | Outpatient (AMB) | payer MEDICARE, SELFPAY ==
--- NOTE | 2023-05-08 07:52 | A.OFFVIS_ITS ---
Intake Vital Signs 05/08/23 07:57 Height 5 ft 6 in Weight 188 lb BMI 30.3 BP 110/62 Blood Pressure Location Lt brachial Position Sitting Pulse 62 Pulse Source Pulse Oximeter Pulse Oximetry (%) 97 Oxygen Delivery Method Room Air Intake Visit Reasons: SWV [id number] Allergies adhesive tape [ADHESIVE TAPE] Allergy (Unknown, Verified 05/08/23 10:15) REDNESS,BLEEDING Iodinated Contrast Media [IVP DYE] Allergy (Unknown, Verified 05/08/23 10:15) HIVES Penicillins [PENICILLINS] Allergy (Unknown, Verified 05/08/23 10:15) NOT EFFECTIVE ether Allergy (Verified 05/08/23 10:15) Unknown EITHER Allergy (Unknown, Uncoded 05/08/23 10:15) PONV Flu shot Allergy (Unknown, Uncoded 05/08/23 10:15) unknown coreg Adverse Reaction (Intermediate, Uncoded 05/08/23 10:15) Rash Medication List - Last Reconciled 05/08/23 by Robbin Ndiaye, [facility] amiodarone 200 mg PO DAILY apixaban (Eliquis) 5 mg PO BID 90 days atorvastatin 80 mg PO DAILY blood sugar diagnostic (FreeStyle Lite Strips) tid testing cefuroxime axetil 250 mg PO BID 7 days cholecalciferol (vitamin D3) 50 mcg PO DAILY clopidogrel 75 mg PO DAILY diphenhydramine HCl (Benadryl Allergy) 50 mg PO BEDTIME PRN empagliflozin (Jardiance) 10 mg PO DAILY ezetimibe (Zetia) 10 mg PO DAILY FreeStyle Bhavani 2 Mitchell (flash glucose scanning reader) TID NS FreeStyle Bhavani 2 Sensor (flash glucose sensor) TID NS gabapentin 100 mg PO TID glipizide 10 mg PO DAILY isosorbide mononitrate ER 30 mg PO DAILY lancets (FreeStyle Lancets) bid testing for diabetes losartan 25 mg PO DAILY metformin 500 mg PO BID 90 days metoprolol succinate ER 25 mg PO DAILY nitroglycerin 0 mg sublingual nystatin 1 appl topical BID omega-3 acid ethyl esters 2 caps PO BID 90 days pen needle, diabetic (BD Ultra-Fine Micro Pen Needle) daily, on days not on metformin torsemide 10 mg (1/2 x 20 mg) PO DAILY Do you need a note to return to daycare/school/sports/work: No HPI SWV [id number] HPI Details Pt is here for an SWV. Denies fever, chills, and dizziness. [place] [facility]. PPP will be scanned in chart and copy will be given to pt. HPI Comments History of Present Illness Details Pt reports ongoing right hip pain. She reports that this is worse with weight-bearing, movement, and touch. Pt does have a significant hx of arthritis. Will order XR. [facility] Medical History Mitral stenosis Chronic heart failure with preserved ejection fraction (HFpEF) LBBB (left bundle branch block) HTN (hypertension) Paroxysmal atrial fibrillation Renal artery stenosis Peripheral vascular disease Aortic stenosis Coronary arteriosclerosis in [place] artery NSTEMI (non-ST elevated myocardial infarction) HLD (hyperlipidemia) Diabetes Carotid artery stenosis Carpal tunnel syndrome Surgical History Mitral valve replaced Stented coronary artery Status post peripheral artery angioplasty with insertion of stent S/P TAVR (transcatheter aortic valve replacement) Family History Father Kidney failure Mother No problems noted. Brother Substance use disorder Social History Housing: House Patient Tobacco Use Status: Former Tobacco user Years Smoked: 59 years and quit 4 years ago e-Cigarette/Vaping Use: Currently Using Second Hand Smoke Exposure: Yes Current occupational status: retired Cognitive needs: No Hearing needs: No Vision needs: No Questionnaire Medicare Wellness Checkup [age] What gender do you identify with?: female During the past 4 weeks, how much have you been bothered by emotional problems such as feeling anxious, depressed, irritable, sad or downhearted, and blue?: moderately During the past 4 weeks, has your physical & emotional health limited your social activities with family, friends, neighbors, or groups?: extremely During the past 4 weeks, how much bodily pain have you generally had?: severe pain During the past 4 weeks, was someone available to help you if you needed & wanted help?: yes, a little During the past 4 weeks, what was the hardest physical activity you could do for at least 2 minutes?: light Can you get to places out of walking distance without help? (For eg., can you travel alone on buses, taxis or drive your car?): No Can you go shopping for groceries or clothes without someone's help?: No Can you prepare your own meals?: Yes Can you do your housework without help?: No Because of any health problems, do you need the help of another person with your personal care needs such as eating, bathing, dressing or getting around the house?: Yes Can you handle your own money without help?: Yes During the past 4 weeks, how would you rate your health in general?: fair During the past 4 weeks how have things been going for you?: pretty bad Are you having difficulties driving your car?: not applicable, I don't use a car Do you always fasten your seat belt when you are in a car?: yes, usually During past 4 weeks, have you been bothered by the following: never: Teeth or denture problems? and Problems using the telephone?, seldom: Trouble eating well?, often: Falling or dizzy when standing up and Tiredness or fatigue? and always: Sexual problems? Have you fallen 2 or more times in the past year?: Yes Are you afraid of falling?: Yes Are you a smoker?: no During the past 4 weeks, how many drinks of wine, beer, or other alcoholic beverages did you have?: no alcohol at all Do you exercise for about 20 minutes 3 or more times a week?: yes, some of the time Have you been given information to help with the following?: yes: Hazards in your house that might hurt you? and yes: Keeping track of your medications? How often do you have trouble taking medicines the way you have been told to take them?: I always take medicine as prescribed How confident are you that you can control & manage most of your health problems?: somewhat confident What is your race?: White Mini Mental State Exam (MMSE) Orientation What is the (year) (season) (date) (day) (month)?: year (2022) Where are we (state) (county) (town or city) (hospital) (floor[place] state [place] Registration Name of 3 unrelated objects clearly and slowly, then ask patient to repeat all 3 of them. (1st repeat determines score. Make sure they can repeat all three): object 1, object 2 and object 3 Attention & Calculation (CHOOSE ONE) Spell WORLD backwards (DLROW): 3 letters Recall Ask patient to repeat the 3 items from question #3.: object 1, object 2 and object 3 Language Show patient a wristwatch & ask what it is. Repeat for pencil.: watch and pencil Ask the patient to repeat the phrase 'No ifs, ands, or buts' after you.: correct Ask the patient to 'take a piece of paper with their right hand' 'fold paper in half' 'place paper on floor': take paper in right hand, fold paper in half and place paper on floor Print the sentence 'CLOSE YOUR EYES' on a piece. If patient actually closes eyes then score.: followed written direction Give patient a blank piece of paper & ask to write a sentence. Score if it contains a noun & verb.: sentence contains subject and verb Ask patient to copy figure of intersecting pentagons exactly. Score if all 10 angles & 2 intersects are included.: all 10 angles present & 2 are intersected Score Score: 20 Activity of Daily Living Bathing - sponge bath, tub bath or shower: receives help in bathing only one body part (such as back or leg) Dressing - getting clothes from closets & drawers, including inner/outer garments & fasteners.: gets clothes & gets completely dressed without help Toileting - going to the 'toilet room' for urine/bowel elimination & cleaning self/arranging clothes: goes to toilet room, cleans self, arranges clothes without help Transfer: moves in & out of bed and chair without help (may use support object) Continence: controls urination/bowel movements completely by self Feeding: feeds self without help Total Score: 0 Information obtained from: patient Using telephone: independent Traveling: needs assistance Shopping: needs assistance Preparing meals: independent Housework: needs assistance Taking medicine: independent Managing money: independent PHQ-9 Over the last 2 weeks, how often have you been bothered by any of the following problems? 1. Little interest or pleasure in doing things: several days 2. Feeling down, depressed, or hopeless: not at all 3. Trouble falling or staying asleep, or sleeping too much: several days 4. Feeling tired or having little energy: several days 5. Poor appetite or overeating: not at all 6. Feeling bad about yourself - or that you are a failure or have let yourself or your family down: several days 7. Trouble concentrating on things, such as reading the newspaper or watching television: not at all 8. Moving or speaking so slowly that other people could have noticed. Or the opposite - being so fidgety or restless that you have been moving around a lot more than usual: not at all 9. Thoughts that you would be better off or of hurting yourself in some way: not at all Total score: 4 Depression Screening Interpretation: Negative Depression Screening Done: Yes 82417 - PHQ-9 Billing: Yes Source: Developed by Drs. Giacomo Cornell, Liz Timmons, Jorge Chiu and colleagues, with an educational luma from [employer]. Review of Systems Const Reports as per HPI Physical Exam Vital Signs: Last Vital Signs Pulse 62 05/08/23 07:57 BP 110/62 05/08/23 07:57 Pulse Ox 97 05/08/23 07:57 Oxygen Delivery Method Room Air 05/08/23 07:57 BMI result Body Mass Index 30.3 Const General: cooperative Orientation/consciousness: patient oriented x3 Limitations: ambulation with walker Neuro Other: - romberg, can not tandem walk, can walk and turn with walker, can rise from sitting to standing, passed whisper test General: patient oriented x3 Extrem Other: right hip tenderness noted with palpation of right hip, right knee to chest raises, and slightest abduction and adduction Psych Appearance: grossly normal Mental Status: mental status grossly normal Speech and movement: Normal speech and movement present Affect: normal affect Attitude: cooperative Thought process: Normal thought process present Thought content: Normal thought content present Insight: Good insight present (Psych) Judgement: Good judgement present (Psych) Assessment & Plan Assessment & Plan (1) Right hip pain: Code(s): M25.551 - Pain in right hip Plan: XR ordered (2) Encounter for subsequent annual wellness visit (AWV) in Medicare patient: Code(s): Z00.00 - Encounter for general adult medical examination without abnormal findings Plan The patient agreed to the use of a medical records director for this encounter. Scribed for Robbin Ndiaye, TELEVISION TUBE INSPECTOR-BC by Janet Power medical records director, on 05/08/2023 at 08:15 EST. Orders: Orders XR hip RT min 2V Today M25.551 - Pain in right hip Quality Reporting (2019) Depression/Bipolar (159/160/161/177) PHQ-9: Total score: 4 Coding Level of Care Code Medicare Subsequent (G0439) Est Pt Level 3 (95985) Diagnoses Right hip pain M25.551 Encounter for subsequent annual wellness visit (AWV) in Medicare patient Z00.00 CPT Codes Advance Care Planning - Time spent: 1-15 minutes, not on file ([id number]) Advance Care Planning Forms completed: Health Care Proxy (pt will bring in copy), MOLST (form given to pt) and Living will (not currently, encouraged to have performed) Time spent: 1-15 minutes, not on file Actual minutes spent: 15
[2023-05-08 07:57] VITALS: BP 110/62; PULSE 62; O2SAT 97; BMI 30.3
== END 2023-05-08 09:04 | disposition home or self-care (01) ==
PROVIDERS: PCP Nurse Practitioner Family; Visit Provider Nurse Practitioner Family
DX: Z00.00 Encounter for general adult medical examination without abnormal findings (principal); M25.551 Pain in right hip
CPT/HCPCS: 1124F; 99213; G0439

== ENCOUNTER 2023-05-11 11:59 | Outpatient (REF) | payer MEDICARE, SELFPAY ==
--- NOTE | ~2023-05-11 | XR_ITS ---
EXAMINATION: XR HIP, RIGHT CLINICAL INFORMATION: Pain in right hip COMPARISON: Right hip 01/05/2022 TECHNIQUE: Two views of the right hip. FINDINGS: No fracture, dislocation or lytic process seen. Alignment is anatomic. There is moderate loss of right hip joint space with periarticular spurring, nonsignificantly changed since 01/05/2022. There are mild degenerative changes of the pubic symphysis and inferior aspect of the right sacroiliac joint. Partially visualized left total hip prosthesis. XR/XR hip RT min 2V IMPRESSION: 1. Moderate osteoarthritic changes of the right hip, without significant interval change. 2. No fracture or dislocation is seen.
== END 2023-05-11 12:00 | disposition home or self-care (01) ==
LOC: HO.XRAY 11:59
PROVIDERS: PCP Nurse Practitioner Family; Visit Provider Nurse Practitioner Family
DX: M25.551 Pain in right hip (principal)
CPT/HCPCS: 73502

== ENCOUNTER 2023-06-06 07:35 | Outpatient (REF) | payer MEDICARE, SELFPAY ==
--- NOTE | ~2023-06-06 | MM_ITS ---
EXAMINATION: MM SCREENING DIGITAL BREAST TOMOSYNTHESIS, BILATERAL CLINICAL INFORMATION: Screening. Asymptomatic. COMPARISON: Mammography: This study is compared with prior exams dating back to 2019. TECHNIQUE: Digital breast tomosynthesis is performed in both the craniocaudal and mediolateral oblique views along with computer-aided detection (CAD). Synthesized 2D images are generated from the tomosynthesis. FINDINGS: There are scattered areas of fibroglandular density (ACR BI-RADS breast composition Category b). There are no significant masses, abnormal calcifications, or other abnormalities. There are bilateral, unchanged, benign calcifications. MM/MM tomosynthesis screening BI IMPRESSION: No mammographic evidence of malignancy. ASSESSMENT: BI-RADS BI-RADS 2 - Benign Findings RECOMMENDATION: Routine annual mammography screening. 1 year F/U This examination should not preclude the clinical evaluation of a suspicious palpable abnormality. This patient's information was entered into a reminder system with a target due date for their next mammogram.
== END 2023-06-06 07:36 | disposition home or self-care (01) ==
LOC: HO.MAMMO 07:35
PROVIDERS: PCP Nurse Practitioner Family; Visit Provider Nurse Practitioner Family
DX: Z12.31 Encounter for screening mammogram for malignant neoplasm of breast (principal)
CPT/HCPCS: 77063; 77067

== ENCOUNTER → 2023-06-06 07:45 | Outpatient (BNV) | payer MEDICARE, SELFPAY | PROVIDERS: PCP Nurse Practitioner Family; Visit Provider Radiology Diagnostic Radiology | DX: Z12.31 Encounter for screening mammogram for malignant neoplasm of breast (principal) | CPT/HCPCS: 77063; 77067 ==

== ENCOUNTER 2023-06-14 10:04 | Outpatient (AMB) | payer MEDICARE, SELFPAY ==
[2023-06-14 10:15] VITALS: BMI 30.3
--- NOTE | 2023-06-14 10:15 | A.OFFVIS_ITS ---
Intake Vital Signs 06/14/23 10:15 Height 5 ft 6 in Weight 188 lb BMI 30.3 Intake Visit Reasons: New Pt - Right Hip Pain Intake Note: Karishma is a 73 year old female who presents today as a new patient with complaints of right hip pain. Hx of Left NISHANT 02/05/2018. Patient reports that this hip has been painful for a few years now. She has had multiple heart attacks and had a pace make placed with other valves replaced which is why she has put off being seen for the hip Allergies adhesive tape [ADHESIVE TAPE] Allergy (Unknown, Verified 06/14/23 10:20) REDNESS,BLEEDING Iodinated Contrast Media [IVP DYE] Allergy (Unknown, Verified 06/14/23 10:20) HIVES Penicillins [PENICILLINS] Allergy (Unknown, Verified 06/14/23 10:20) NOT EFFECTIVE ether Allergy (Verified 06/14/23 10:20) Unknown EITHER Allergy (Unknown, Uncoded 06/14/23 10:20) PONV Flu shot Allergy (Unknown, Uncoded 06/14/23 10:20) unknown coreg Adverse Reaction (Intermediate, Uncoded 06/14/23 10:20) Rash HPI New Pt - Right Hip Pain HPI Details Karishma is a 73 year old woman who presents with complaints of right hip pain. She has pain with daily activity, localized to the groin. Her pain has been present for several years now and she feels limited in her ADLs. She has a hx of a left NISHANT, DOS: 02/05/18, and says her symptoms are similar prior to this surgery. She has a hx of multiple SD's, and a hx of heart valve replacements and a pacemaker implantation. [facility] Medical History Mitral stenosis Chronic heart failure with preserved ejection fraction (HFpEF) LBBB (left bundle branch block) HTN (hypertension) Paroxysmal atrial fibrillation Renal artery stenosis Peripheral vascular disease Aortic stenosis Coronary arteriosclerosis in [place] artery NSTEMI (non-ST elevated myocardial infarction) HLD (hyperlipidemia) Diabetes Carotid artery stenosis Carpal tunnel syndrome Surgical History History of total left hip arthroplasty (02/05/18) Mitral valve replaced Stented coronary artery Status post peripheral artery angioplasty with insertion of stent S/P TAVR (transcatheter aortic valve replacement) Family History Father Kidney failure Mother No problems noted. Brother Substance use disorder Social History Housing: House Patient Tobacco Use Status: Former Tobacco user Years Smoked: 59 years and quit 4 years ago e-Cigarette/Vaping Use: Currently Using Second Hand Smoke Exposure: Yes Current occupational status: retired Cognitive needs: No Hearing needs: No Vision needs: No Review of Systems Const All systems reviewed & are unremarkable except as noted in HPI and below Physical Exam Vital Signs: BMI result Body Mass Index 30.3 Const General: no acute distress, alert and awake Orientation/consciousness: patient oriented x3 HEENT Head: Yes normocephalic and Yes atraumatic Eyes EOM: EOMs intact bilaterally Resp Effort & Inspection: normal respiratory effort and able to speak in complete sentences Cardio Jugular venous distension: no JVD Skin General skin exam: turgor normal Rashes: no rashes Neuro General: patient oriented x3 Extrem Other: Severe limp 90 ff only rotation painful with markedly + impingement Psych Appearance: grossly normal Affect: normal affect Attitude: cooperative Results Reviewed Results Reviewed: I personally reviewed relevant radiographs 1. Moderate- severe osteoarthritic changes of the right hip Assessment & Plan Assessment & Plan (1) Primary osteoarthritis of right hip: Code(s): M16.11 - Unilateral primary osteoarthritis, right hip Plan: This is a 73yo F with severe right hip OA and she cannot ambulate and her QOL is suffering. She has multiple cardiac comorbidities including CHF, s/p MVR, biventricular ICD and h/o SD. These are significant and her NISHANT will not be possible if she is deemed high risk. If the is deemed moderate risk ( from a cardiac perspective), I told her we can discuss and the benefits of surgery MAY outweigh the risks. We will have her scheduled to see her staple shear operator and begin the pre operative clearance process understanding the above caveat. Plan Scribed for Johnathan Mix MD by Rome Mcdermott, medical equipment repairer, on 06/14/23 at 10:30 AM, EST. Coding Level of Care Code Est Pt Level 4 (81124) Diagnoses Primary osteoarthritis of right hip M16.11
== END 2023-06-14 10:44 | disposition home or self-care (01) ==
PROVIDERS: PCP Nurse Practitioner Family; Visit Provider Orthopaedic Surgery
DX: M16.11 Unilateral primary osteoarthritis, right hip (principal)
CPT/HCPCS: 99204

== ENCOUNTER → 2023-06-14 10:04 | Outpatient (BNVA) | payer MEDICARE, SELFPAY | PROVIDERS: PCP Nurse Practitioner Family; Visit Provider Orthopaedic Surgery | DX: M16.11 Unilateral primary osteoarthritis, right hip (principal) | CPT/HCPCS: 99202 ==

== ENCOUNTER → 2023-06-28 23:59 | Outpatient (BNV) | payer MEDICARE, SELFPAY ==
--- NOTE | 2023-07-03 08:22 | MHC.OFFVIS ---
Intake Intake Visit Reasons: Remote HF Monitoring- [facility] Allergies adhesive tape [ADHESIVE TAPE] Allergy (Unknown, Verified 06/14/23 10:20) REDNESS,BLEEDING Iodinated Contrast Media [IVP DYE] Allergy (Unknown, Verified 06/14/23 10:20) HIVES Penicillins [PENICILLINS] Allergy (Unknown, Verified 06/14/23 10:20) NOT EFFECTIVE ether Allergy (Verified 06/14/23 10:20) Unknown EITHER Allergy (Unknown, Uncoded 06/14/23 10:20) PONV Flu shot Allergy (Unknown, Uncoded 06/14/23 10:20) unknown coreg Adverse Reaction (Intermediate, Uncoded 06/14/23 10:20) Rash PFSH Medical History Mitral stenosis Chronic heart failure with preserved ejection fraction (HFpEF) LBBB (left bundle branch block) HTN (hypertension) Paroxysmal atrial fibrillation Renal artery stenosis Peripheral vascular disease Aortic stenosis Coronary arteriosclerosis in [place] artery NSTEMI (non-ST elevated myocardial infarction) HLD (hyperlipidemia) Diabetes Carotid artery stenosis Carpal tunnel syndrome Surgical History History of total left hip arthroplasty (02/05/18) Mitral valve replaced Stented coronary artery Status post peripheral artery angioplasty with insertion of stent S/P TAVR (transcatheter aortic valve replacement) Family History Father Kidney failure Mother No problems noted. Brother Substance use disorder Social History Housing: House Patient Tobacco Use Status: Former Tobacco user Years Smoked: 59 years and quit 4 years ago e-Cigarette/Vaping Use: Currently Using Second Hand Smoke Exposure: Yes Current occupational status: retired Cognitive needs: No Hearing needs: No Vision needs: No Office Procedures Cardiac Device Check Cardiac Device Check Details: Remote heart failure report generated 06/28/2023. Heart failure parameters are stable [id number] Cardiac Device Interrogation, cardio physiologic monitor Procedure code (CPT) selection complete Assessment & Plan Assessment & Plan (1) Biventricular ICD (implantable cardioverter-defibrillator) in place: Comment: [facility] biventricular ICD placed November 2022 for severe LV systolic dysfunction with left bundle-branch block Code(s): Z95.810 - Presence of automatic (implantable) cardiac defibrillator Plan: See above Coding Level of Care Code Procedure Only Diagnoses Biventricular ICD (implantable cardioverter-defibrillator) in place Z95.810 CPT Codes Cardiac Device Check - Cardiac Device 15: [id number] Cardiac Device Interrogation, cardio physiologic monitor ([id number])
== END ==
PROVIDERS: PCP Nurse Practitioner Family; Visit Provider Internal Medicine Cardiovascular Disease
DX: I50.32 Chronic diastolic (congestive) heart failure (principal); Z95.810 Presence of automatic (implantable) cardiac defibrillator
CPT/HCPCS: 93297

== ENCOUNTER → 2023-07-13 23:59 | Outpatient (BNV) | payer MEDICARE, SELFPAY ==
--- NOTE | 2023-07-16 12:16 | MHC.OFFVIS ---
Intake Intake Visit Reasons: Remote ICD Check- [facility] Allergies adhesive tape [ADHESIVE TAPE] Allergy (Unknown, Verified 06/14/23 10:20) REDNESS,BLEEDING Iodinated Contrast Media [IVP DYE] Allergy (Unknown, Verified 06/14/23 10:20) HIVES Penicillins [PENICILLINS] Allergy (Unknown, Verified 06/14/23 10:20) NOT EFFECTIVE ether Allergy (Verified 06/14/23 10:20) Unknown EITHER Allergy (Unknown, Uncoded 06/14/23 10:20) PONV Flu shot Allergy (Unknown, Uncoded 06/14/23 10:20) unknown coreg Adverse Reaction (Intermediate, Uncoded 06/14/23 10:20) Rash PFSH Medical History Mitral stenosis Chronic heart failure with preserved ejection fraction (HFpEF) LBBB (left bundle branch block) HTN (hypertension) Paroxysmal atrial fibrillation Renal artery stenosis Peripheral vascular disease Aortic stenosis Coronary arteriosclerosis in [place] artery NSTEMI (non-ST elevated myocardial infarction) HLD (hyperlipidemia) Diabetes Carotid artery stenosis Carpal tunnel syndrome Surgical History History of total left hip arthroplasty (02/05/18) Mitral valve replaced Stented coronary artery Status post peripheral artery angioplasty with insertion of stent S/P TAVR (transcatheter aortic valve replacement) Family History Father Kidney failure Mother No problems noted. Brother Substance use disorder Social History Housing: House Patient Tobacco Use Status: Former Tobacco user Years Smoked: 59 years and quit 4 years ago e-Cigarette/Vaping Use: Currently Using Second Hand Smoke Exposure: Yes Current occupational status: retired Cognitive needs: No Hearing needs: No Vision needs: No Office Procedures Cardiac Device Check Cardiac Device Check Details: Remote ICD report generated 07/13/2023. ICD function is adequate. Bi V pacing 97% of the time [id number] Cardiac Interrogation, implant defibrillator w/interim Procedure code (CPT) selection complete Assessment & Plan Assessment & Plan (1) Biventricular ICD (implantable cardioverter-defibrillator) in place: Comment: [facility] biventricular ICD placed November 2022 for severe LV systolic dysfunction with left bundle-branch block Code(s): Z95.810 - Presence of automatic (implantable) cardiac defibrillator Plan: See above Coding Level of Care Code Procedure Only Diagnoses Biventricular ICD (implantable cardioverter-defibrillator) in place Z95.810 CPT Codes Cardiac Device Check - Cardiac Device 13: [id number] Cardiac Interrogation, implant defibrillator w/interim ([id number])
== END ==
PROVIDERS: PCP Nurse Practitioner Family; Visit Provider Internal Medicine Cardiovascular Disease
DX: I42.9 Cardiomyopathy, unspecified (principal); Z95.810 Presence of automatic (implantable) cardiac defibrillator
CPT/HCPCS: 93295

== ENCOUNTER 2023-07-31 12:54 | Outpatient (AMB) | payer MEDICARE, SELFPAY ==
[2023-07-31 13:02] VITALS: BP 120/58; PULSE 63; O2SAT 99
--- NOTE | 2023-07-31 13:02 | MHC.PC.OV ---
Vital Signs 07/31/23 13:02 Height 5 ft 6 in Weight 186 lb BMI 30.0 BP 120/58 L Blood Pressure Location Rt brachial Position Sitting Pulse 63 Pulse Source Pulse Oximeter Pulse Oximetry (%) 99 Oxygen Delivery Method Room Air Intake Visit Reasons: F/u Heart attack Intake Note: Pt is here to follow up after a heart attack pt was at [facility] Allergies adhesive tape [ADHESIVE TAPE] Allergy (Unknown, Verified 07/31/23 13:53) REDNESS,BLEEDING Iodinated Contrast Media [IVP DYE] Allergy (Unknown, Verified 07/31/23 13:53) HIVES Penicillins [PENICILLINS] Allergy (Unknown, Verified 07/31/23 13:53) NOT EFFECTIVE ether Allergy (Verified 07/31/23 13:53) Unknown EITHER Allergy (Unknown, Uncoded 07/31/23 13:53) PONV Flu shot Allergy (Unknown, Uncoded 07/31/23 13:53) unknown coreg Adverse Reaction (Intermediate, Uncoded 07/31/23 13:53) Rash Medication List - Last Reconciled 07/31/23 by ANA OconnellP- amiodarone 200 mg PO DAILY apixaban (Eliquis) 5 mg PO BID 90 days atorvastatin 80 mg PO DAILY blood sugar diagnostic (FreeStyle Lite Strips) tid testing cholecalciferol (vitamin D3) 50 mcg PO DAILY clopidogrel 75 mg PO DAILY diphenhydramine HCl (Benadryl Allergy) 50 mg PO BEDTIME PRN empagliflozin (Jardiance) 10 mg PO DAILY ezetimibe (Zetia) 10 mg PO DAILY FreeStyle Bhavani 2 [place] (flash glucose scanning reader) TID NS FreeStyle Bhavani 2 Sensor (flash glucose sensor) TID NS gabapentin 100 mg PO TID glipizide 10 mg PO DAILY isosorbide mononitrate ER 30 mg PO DAILY lancets (FreeStyle Lancets) bid testing for diabetes losartan 25 mg PO DAILY metformin 500 mg PO BID 90 days metoprolol succinate ER 25 mg PO DAILY nitroglycerin 0 mg sublingual nystatin 1 appl topical BID omega-3 acid ethyl esters 2 caps PO BID 90 days pen needle, diabetic (BD Ultra-Fine Micro Pen Needle) daily, on days not on metformin torsemide 10 mg (1/2 x 20 mg) PO DAILY Tobacco use date assessed: 07/31/23 Fall risk assessment: 2 + Falls in past year Last assessed Fall Risk: 07/31/23 Dental Screening Dental Screen Date: 07/31/23 Did you have a dental visit in the last 12 months?: No Did you have a dental problem in the last 6 months where you did not have access to dental care?: No Was dental information given to patient?: Patient has dentist HPI F/u Heart attack HPI Details Pt reportedly fell twice last month. The second time her was unable to get pt back in bed and EMS was called. Pt was told she had an NE. She does not remember much from the start of her hospital stay. According to notes from rehab facility: Pt developed shortness of breath on 06/30 and was diagnosed with acute hypoxic respiratory failure, systolic heart failure, and an NSTEMI. She was started on bipap and eventually weaned to nasal cannula, satting at 93 on 3L. Today, she is satting at 99 on room air. Pt received IV lasix and was later transferred to oral 40mg bid. She is now taking torsemide 10mg daily. She was maintained on losartan, imdur, beta-jessika, eliquis, and statin. Pt was d/c to rehab for PT/OT, d/c 1.5 weeks ago. Pt reports doing well today and is in good spirits. She is walking with use of walker. Denies chest pain, shortness of breath, and dizziness. Missing notes from [facility], will track these down. Pt has a hx of CKD, will refer to nephrology. Pt is following up with cardiology next week. [facility] Medical History Mitral stenosis Chronic heart failure with preserved ejection fraction (HFpEF) LBBB (left bundle branch block) HTN (hypertension) Paroxysmal atrial fibrillation Renal artery stenosis Peripheral vascular disease Aortic stenosis Coronary arteriosclerosis in [place] artery NSTEMI (non-ST elevated myocardial infarction) HLD (hyperlipidemia) Diabetes Carotid artery stenosis Carpal tunnel syndrome Surgical History History of total left hip arthroplasty (02/05/18) Mitral valve replaced Stented coronary artery Status post peripheral artery angioplasty with insertion of stent S/P TAVR (transcatheter aortic valve replacement) Family History Father Kidney failure Mother No problems noted. Brother Substance use disorder Social History Housing: House Patient Tobacco Use Status: Former Tobacco user Years Smoked: 59 years and quit 4 years ago e-Cigarette/Vaping Use: Currently Using Second Hand Smoke Exposure: Yes Current occupational status: retired Cognitive needs: No Hearing needs: No Vision needs: No Questionnaire Thrive Questionnaire Date Thrive assessed: 07/27/22 LEOBARDO-7 AMB Questionnaire LEOBARDO-7 Date LEOBARDO - 7 assessed: 07/27/22 Source: Developed by Drs. Giacomo Cornell, Liz Timmons, Jorge Chiu and colleagues, with an educational luma from [employer]. Review of Systems Const Reports as per HPI Physical exam (Primary Care) Vital Signs: Last Vital Signs Pulse 63 07/31/23 13:02 BP 120/58 L 07/31/23 13:02 Pulse Ox 99 07/31/23 13:02 Oxygen Delivery Method Room Air 07/31/23 13:02 BMI result Body Mass Index 30.0 Tobacco/Smoking Status: Tobacco use Status Tobacco use date assessed 07/31/23 07/31/23 13:17 Patient Tobacco Use Status Former Tobacco user 07/31/23 13:17 e-Cigarette/Vaping Use Currently Using 07/31/23 13:17 Thrive Assessment: Date of Thrive Assessment Date Thrive assessed 07/27/22 07/31/23 13:17 Const General: cooperative Orientation/consciousness: patient oriented x3 Resp Effort & Inspection: normal respiratory effort Auscultation: clear to auscultation bilaterally Cardio Rate: regular rate Rhythm: regular rhythm Heart sounds: S1 normal heart sound present, S2 normal heart sound present and Murmur heart sound present systolic Neuro General: patient oriented x3 Extrem Other: left foot 3rd toe medial side with small healing scab, no signs of infection, small skin tear to right foot medial plantar aspect of 1st toe Right lower extremity: no edema Left lower extremity: no edema Psych Appearance: grossly normal Mental Status: mental status grossly normal Speech and movement: Normal speech and movement present Affect: normal affect Attitude: cooperative Thought process: Normal thought process present Thought content: Normal thought content present Insight: Good insight present (Psych) Judgement: Good judgement present (Psych) Assessment and Plan Assessment & Plan (1) CKD (chronic kidney disease): Code(s): N18.9 - Chronic kidney disease, unspecified Plan: Referred to nephrology (2) Myocardial infarction: Code(s): I21.9 - Acute myocardial infarction, unspecified Plan: Labs ordered, cardio follow next week (3) Congestive heart failure: Code(s): I50.9 - Heart failure, unspecified Plan: Labs ordered (4) Wound of foot: Code(s): S91.309A - Unspecified open wound, unspecified foot, initial encounter Plan: Healing well, no signs of infection, pt will cont to monitor Plan The patient agreed to the use of a certified medical technician assistant for this encounter. Scribed for YANDY Browning by Janet Power certified medical technician assistant, on 07/31/2023 at 13:30 EST. Orders: Orders Complete Blood Count Auto Diff Today I50.9 - Heart failure, unspecified, N18.9 - Chronic kidney disease, unspecified Comprehensive Met. Panel Today I50.9 - Heart failure, unspecified, N18.9 - Chronic kidney disease, unspecified TSH reflex Free T4 Today I50.9 - Heart failure, unspecified, N18.9 - Chronic kidney disease, unspecified UA CC w/rflx Micro + Cult Today I50.9 - Heart failure, unspecified, N18.9 - Chronic kidney disease, unspecified B Type Natriuretic Peptide Today I50.9 - Heart failure, unspecified, N18.9 - Chronic kidney disease, unspecified Referrals Nephrology Referral N18.9 - Chronic kidney disease, unspecified Coding Level of Care Code Est Pt Level 3 (11753) Diagnoses CKD (chronic kidney disease) N18.9 Myocardial infarction I21.9 Congestive heart failure I50.9 Wound of foot S91.309A
== END 2023-07-31 16:26 | disposition home or self-care (01) ==
PROVIDERS: PCP Nurse Practitioner Family; Visit Provider Nurse Practitioner Family
DX: N18.9 Chronic kidney disease, unspecified (principal); I21.9 Acute myocardial infarction, unspecified; I50.9 Heart failure, unspecified; S91.309A Unspecified open wound, unspecified foot, initial encounter
CPT/HCPCS: 99213

== ENCOUNTER 2023-07-31 14:03 | Outpatient (REF) | payer MEDICARE, SELFPAY ==
[2023-07-31 16:13] LABS: MANUAL DIFF FLAG NO
[2023-07-31 16:16] LABS: Basophils Percent Auto 0.7 % (0-2); Eosinophils Absolute Auto 0.1 X10*3/uL (0.0-0.4); Eosinophils Percent Auto 2.6 % (0-4); Hematocrit 39.4 % (37.0-47.0); Hemoglobin 11.9 g/dl (12.0-16.0); Imm Gran Abs Auto 0.01 X10*3/uL (0.00-0.03); Imm Gran Pct Auto 0.2 % (0.0-0.4); Lymphocytes Absolute Auto 0.7 X10*3/uL (1.2-4.9); Mean Corpuscular HGB Conc 30.2 g/dl (31.0-35.0); Mean Corpuscular Hemoglobin 26.6 pg (27.0-33.0); Mean Corpuscular Volume 88.1 fL (80.0-98.0); Mean Platelet Volume 10.5 fL (9.4-12.3); Monocytes Absolute Auto 0.4 X10*3/uL (0.1-1.2); Monocytes Percent Auto 9.8 % (2-11); Neutrophils Absolute Auto 2.9 x10*3/uL (2.0-8.3); Neutrophils Percent Auto 69.7 % (45-73); Platelet Count 223 X10*3/uL (160-400); Red Blood Count 4.47 X10*6/uL (4.20-5.50); Red Cell Distribution Width 15.9 % (11.0-16.0); White Blood Count 4.2 X10*3/uL (4.8-10.8)
[2023-07-31 16:45] LABS: Appearance Urine Clear; Color Urine Yellow; Glucose Urine UA >=1000 mg/dL (Negative); Leukocyte Esterase Urine Negative (Negative); Nitrite Urine Negative (Negative); UMIC TRIGGER UACC YES; Urine Blood Negative (Negative); Urine Ketones Negative (Negative); Urine Protein Negative (Neg-Trace)
[2023-07-31 16:47] LABS: Alanine Aminotransferase 29 U/L (0-31); Albumin Level 4.1 g/dL (3.5-5.0); Alkaline Phosphatase 103 U/L (39-117); Anion Gap 13 (12-20); Aspartate Amino Transferase 24 U/L (5-31); Bilirubin Total 0.5 mg/dL (0.0-1.0); Blood Urea Nitrogen 22 mg/dL (9-16); Calcium 9.9 mg/dL (8.4-10.2); Carbon Dioxide 26 mmol/L (22-29); Chloride 106 mmol/L (96-108); Estimated Glomerular Filt Rate 40; Glucose Random 229 mg/dL (60-115); Potassium 4.2 mmol/L (3.3-5.1); Sodium 141 mmol/L (135-145); Total Protein 7.4 g/dL (6.5-8.0)
[2023-07-31 16:50] LABS: TSH reflex Free T4 0.49 uIU/mL (0.32-4.0)
[2023-07-31 16:56] LABS: B Type Natriuretic Peptide 870 pg/mL (<100)
[2023-07-31 17:07] LABS: Bacteria Urine None Seen (None Seen); Hyaline Casts Urine 0-2 /LPF (0-2); RBC Urine 0-2 /HPF (0-2); Squamous Epithelial Cell Urine 0-2 /HPF (0-2); WBC Urine 0-5 /HPF (0-5)
== END 2023-07-31 14:04 | disposition home or self-care (01) ==
LOC: HO.HMGCLDS 14:03
PROVIDERS: PCP Nurse Practitioner Family; Visit Provider Nurse Practitioner Family
DX: I50.9 Heart failure, unspecified (principal); N18.9 Chronic kidney disease, unspecified
CPT/HCPCS: 36415; 80053; 81001; 83880; 84443; 85025

== ENCOUNTER 2023-08-07 12:52 | Outpatient (AMB) | payer MEDICARE, SELFPAY ==
[2023-08-07 12:57] VITALS: BP 130/60; PULSE 71; BMI 29.3
--- NOTE | 2023-08-07 12:57 | MHC.OFFVIS ---
Intake Vital Signs 08/07/23 12:57 Height 5 ft 6 in Weight 181 lb 10.574 oz BMI 29.3 BP 130/60 Blood Pressure Location Lt brachial Position Sitting Pulse 71 Intake Visit Reasons: 2 wk fu rehab discharge- due to heart spell Intake Note: pt its here for a 2wk f/up rehab discharge-due to heart spell, pt states that she its doing fine. Heavy Equipment Sales Associate Required: No Accompanied by: Daughter Allergies adhesive tape [ADHESIVE TAPE] Allergy (Unknown, Verified 08/08/23 10:49) REDNESS,BLEEDING Iodinated Contrast Media [IVP DYE] Allergy (Unknown, Verified 08/08/23 10:49) HIVES Penicillins [PENICILLINS] Allergy (Unknown, Verified 08/08/23 10:49) NOT EFFECTIVE ether Allergy (Verified 08/08/23 10:49) Unknown EITHER Allergy (Unknown, Uncoded 08/07/23 13:19) PONV Flu shot Allergy (Unknown, Uncoded 08/07/23 13:19) unknown coreg Adverse Reaction (Intermediate, Uncoded 08/07/23 13:19) Rash Medication List - Last Reconciled 08/07/23 by Vanessa Lance, SPENCER amiodarone 200 mg PO DAILY apixaban (Eliquis) 5 mg PO BID 90 days atorvastatin 80 mg PO DAILY blood sugar diagnostic (FreeStyle Lite Strips) tid testing cholecalciferol (vitamin D3) 50 mcg PO DAILY clopidogrel 75 mg PO DAILY diphenhydramine HCl (Benadryl Allergy) 50 mg PO BEDTIME PRN empagliflozin (Jardiance) 10 mg PO DAILY ezetimibe (Zetia) 10 mg PO DAILY FreeStyle Bhavani 2 [place] (flash glucose scanning reader) TID NS FreeStyle Bhavani 2 Sensor (flash glucose sensor) TID NS gabapentin 100 mg PO TID glipizide 10 mg PO DAILY isosorbide mononitrate ER 30 mg PO DAILY lancets (FreeStyle Lancets) bid testing for diabetes losartan 25 mg PO DAILY metformin 500 mg PO BID 90 days metoprolol succinate ER 25 mg PO DAILY nitroglycerin 0 mg sublingual nystatin 1 appl topical BID omega-3 acid ethyl esters 2 caps PO BID 90 days pen needle, diabetic (BD Ultra-Fine Micro Pen Needle) daily, on days not on metformin torsemide 10 mg (1/2 x 20 mg) PO DAILY HPI HPI Comments History of Present Illness Details 73-year-old female presents today for a follow-up after beng at [facility] after have a suspected type II IA due to Hypoxia related to CHF. She reports she has been doing well and is back home from being in rehab post hospitalization. She was hospitalized for CKD, CHF, STEMI, Pneumonia, HTN, and permanent a-fib. She presets with her daughter. They both report she has not been short of breath and denies any chest discomforts. She is seeing nephrology tomorrow. She is due for a NISHANT on 09/[address] Mix[address] [facility] Medical History (Updated 08/07/23 @ 15:11 by Vanessa Lance NP) Mitral stenosis Chronic heart failure with preserved ejection fraction (HFpEF) LBBB (left bundle branch block) HTN (hypertension) Paroxysmal atrial fibrillation Renal artery stenosis Peripheral vascular disease Aortic stenosis Coronary arteriosclerosis in [place] artery NSTEMI (non-ST elevated myocardial infarction) HLD (hyperlipidemia) Diabetes Carotid artery stenosis Carpal tunnel syndrome Surgical History History of total left hip arthroplasty (02/05/18) Mitral valve replaced Stented coronary artery Status post peripheral artery angioplasty with insertion of stent S/P TAVR (transcatheter aortic valve replacement) Family History Father Kidney failure Mother No problems noted. Brother Substance use disorder Social History Housing: House Patient Tobacco Use Status: Former Tobacco user Years Smoked: 59 years and quit 4 years ago e-Cigarette/Vaping Use: Currently Using Second Hand Smoke Exposure: Yes Current occupational status: retired Cognitive needs: No Hearing needs: No Vision needs: No Review of Systems Const Denies chills, Denies fatigue, Denies fever(s), Denies frequent falls, Denies weakness, Denies weight gain and Denies weight loss ENT Denies dizziness Card Denies chest pain, Denies leg edema, Denies lightheadedness, Denies palpitations, Denies dyspnea and Denies dyspnea on exertion Resp Denies cough, Denies dyspnea and Denies dyspnea on exertion GI Denies hematochezia Musc Denies abnormal gait, Denies muscle weakness, Denies numbness, Denies radiating pain into limb and Denies tingling Neuro Denies abnormal gait, Denies dizziness, Denies frequent falls, Denies numbness, Denies tingling and Denies weakness Endo Denies fatigue and Denies palpitations Physical Exam Vital Signs: Last Vital Signs Pulse 71 08/07/23 12:57 BP 130/60 08/07/23 12:57 BMI result Body Mass Index 29.3 Const General: healthy appearing and no acute distress Orientation/consciousness: patient oriented x3 HEENT Head: Yes normal to inspection Eyes General: appearance normal, both eyes and all related structures Neck Neck: Yes normal visual inspection Chest Chest palpation & inspection: normal inspection of the chest Resp Effort & Inspection: normal respiratory effort Auscultation: clear to auscultation bilaterally and diminished lung sounds Cardio Jugular venous distension: no JVD Palpation: normal PMI Rate: regular rate Rhythm: regular rhythm Heart sounds: S1 normal heart sound present, S2 normal heart sound present, no click, no gallops, no murmurs and no rubs GI Inspection: Yes normal to inspection Palpation (GI): Soft to palpation Skin General skin exam: no rashes or lesions noted Neuro General: patient oriented x3 Extrem General: Yes normal to inspection Psych Appearance: grossly normal Assessment & Plan Assessment & Plan (1) Congestive heart failure: Code(s): I50.9 - Heart failure, unspecified (2) NSTEMI (non-ST elevated myocardial infarction): Comment: 07/04/23 [facility] type II due to demand ischemia due to CHF Code(s): I21.4 - Non-ST elevation (NSTEMI) myocardial infarction (3) SOB (shortness of breath): Code(s): R06.02 - Shortness of breath Plan Will send for lab work today. She is seeing nephrology tomorrow. Will get echo to see how heart function is currently. Last echo done at [facility] showed EF of 30-35% in September 2022. She is interested in cardiac rehab due to NSTEMI. Importance of weight monitoring, avoiding salt discussed in great detail. Report signs of fluid overload. Seek ED care for symptoms if needed. Orders: Orders B Type Natriuretic Peptide 08/07/23 I50.9 - Heart failure, unspecified CA echo transthoracic complete 08/07/23 I21.4 - Non-ST elevation (NSTEMI) myocardial infarction, I50.9 - Heart failure, unspecified Cardiac Rehab 08/07/23 I21.4 - Non-ST elevation (NSTEMI) myocardial infarction Basic Metabolic Panel 08/07/23 I50.9 - Heart failure, unspecified Coding Level of Care Code Est Pt Level 3 (04633) Diagnoses Congestive heart failure I50.9 NSTEMI (non-ST elevated myocardial infarction) I21.4 SOB (shortness of breath) R06.02
== END 2023-08-07 13:47 | disposition home or self-care (01) ==
PROVIDERS: PCP Nurse Practitioner Family; Visit Provider Nurse Practitioner
DX: I50.9 Heart failure, unspecified (principal); I21.4 Non-ST elevation (NSTEMI) myocardial infarction; R06.02 Shortness of breath
CPT/HCPCS: 93010; 99213

== ENCOUNTER 2023-08-07 12:52 | Outpatient (REF) | payer MEDICARE, SELFPAY ==
[2023-08-07 14:43] LABS: Anion Gap 17 (12-20); Blood Urea Nitrogen 22 mg/dL (9-16); Calcium 9.8 mg/dL (8.4-10.2); Carbon Dioxide 27 mmol/L (22-29); Chloride 102 mmol/L (96-108); Estimated Glomerular Filt Rate 31; Glucose Random 196 mg/dL (60-115); Potassium 4.3 mmol/L (3.3-5.1); Sodium 142 mmol/L (135-145)
[2023-08-07 14:44] LABS: B Type Natriuretic Peptide 840 pg/mL (<100)
== END 2023-08-07 12:53 | disposition home or self-care (01) ==
LOC: HO.LAB 12:52
PROVIDERS: PCP Nurse Practitioner Family; Visit Provider Nurse Practitioner
DX: I11.0 Hypertensive heart disease with heart failure (principal); I50.9 Heart failure, unspecified; I21.4 Non-ST elevation (NSTEMI) myocardial infarction; I48.21 Permanent atrial fibrillation; R06.02 Shortness of breath; Z95.5 Presence of coronary angioplasty implant and graft; Z95.2 Presence of prosthetic heart valve; Z98.890 Other specified postprocedural states
CPT/HCPCS: 36415; 80048; 83880; 93005; 99212

== ENCOUNTER 2023-08-08 10:45 | Outpatient (AMB) | payer MEDICARE, SELFPAY ==
[2023-08-08 10:46] VITALS: BP 130/76; PULSE 82; O2SAT 81; BMI 28.8
--- NOTE | 2023-08-08 10:46 | HO.NEPHOV_ITS ---
HPI HPI Comments History of Present Illness Details . 73 yr old woman with a h/o severe athero sclerotic disease including CAD, PVD/ Carotid stenosis/SPENCER h/o DM > 20 years; No proteinuria h/o Renal artery stenosis s/p Left Renal Artery Stent placement : Jun 2021 Has a baseline creatinine of 1.2 mg/dl as on May 2023 On 08/07/23; Creatinine bumped up to 1.6 Torsemide was increased from 10 mg to 20 mg daily about a weekago She is on Losartan 25 mg daily No other new medications have been added. Not on NSAIDS Accompanied by daughter Waiting for hip surgery- end of August 2023 Recently hospitalized for CHF; She has severe and EF of 20% . [facility] Medical History (Updated 08/07/23 @ 15:11 by Vanessa Lance NP) Mitral stenosis Chronic heart failure with preserved ejection fraction (HFpEF) LBBB (left bundle branch block) HTN (hypertension) Paroxysmal atrial fibrillation Renal artery stenosis Peripheral vascular disease Aortic stenosis Coronary arteriosclerosis in [place] artery NSTEMI (non-ST elevated myocardial infarction) HLD (hyperlipidemia) Diabetes Carotid artery stenosis Carpal tunnel syndrome Surgical History History of total left hip arthroplasty (02/05/18) Mitral valve replaced Stented coronary artery Status post peripheral artery angioplasty with insertion of stent S/P TAVR (transcatheter aortic valve replacement) Family History Father Kidney failure Mother No problems noted. Brother Substance use disorder Social History Housing: House Patient Tobacco Use Status: Former Tobacco user Years Smoked: 59 years and quit 4 years ago e-Cigarette/Vaping Use: Currently Using Second Hand Smoke Exposure: Yes Current occupational status: retired Cognitive needs: No Hearing needs: No Vision needs: No Vital Signs 08/08/23 10:46 Height 5 ft 6 in Weight 178 lb 8 oz BMI 28.8 BP 130/76 Blood Pressure Location Lt brachial Position Sitting Pulse 82 Pulse Source Pulse Oximeter Pulse Oximetry (%) 81 L Oxygen Delivery Method Room Air Physical Exam Vital Signs: Last Vital Signs Pulse 82 08/08/23 10:46 BP 130/76 08/08/23 10:46 Pulse Ox 81 L 08/08/23 10:46 Oxygen Delivery Method Room Air 08/08/23 10:46 BMI result Body Mass Index 28.8 Const General: comfortable Nutritional Appearance: well nourished Orientation/consciousness: patient oriented x3 HEENT Head: No normal to inspection Mouth: moist mucous membranes Neck Neck: Yes supple and Yes no JVD Resp Auscultation: clear to auscultation bilaterally and no rales Cardio Jugular venous distension: no JVD Palpation: no palpable S3 and no palpable S4 Heart sounds: no rubs GI Palpation (GI): Soft to palpation and nontender Percussion: No Fluid wave present General: Yes no CVA tenderness Back/Spine/Pelvis Back: no CVA tenderness Skin General skin exam: no rashes or lesions noted Neuro General: patient oriented x3 Extrem General: Yes no pedal edema and No clubbing Assessment & Plan Assessment & Plan (1) CKD (chronic kidney disease): Code(s): N18.9 - Chronic kidney disease, unspecified (2) Renal artery stenosis: Code(s): I70.1 - Atherosclerosis of renal artery (3) Congestive heart failure: Code(s): I50.9 - Heart failure, unspecified Plan . Elderly woman with CKD in a setting of long standing HTN and Vascular disease / Renal artery stenosis- s/p Stent to left renal artery Baseline creatinine is 1.2 Sustained RAVI Most likely due to hypoperfusion after increasing Torsemide She has been on Losartan in a setting of SPENCER- which could have disrupted renal autoregualtion leading to hypoperfusion Obstructive uropathy- albiet less likely, should be ruled out NO evidence of AGN/Ain based on urine studies Recommend Stop Losartan in a setting of RAVI in a patient with SPENCER REassess fluid status and may need to lower diuretics if needed. Renal ultrasound URien studies Avoid NSaid and nephrotoxins Doppler renal arteries . Orders: Orders Parathyroid Hormone Intact 2 Weeks I70.1 - Atherosclerosis of renal artery, N18.9 - Chronic kidney disease, unspecified Basic Metabolic Panel 2 Weeks I70.1 - Atherosclerosis of renal artery, N18.9 - Chronic kidney disease, unspecified US renal BI Today I70.1 - Atherosclerosis of renal artery, N18.9 - Chronic kidney disease, unspecified US renal doppler Today I70.1 - Atherosclerosis of renal artery, N18.9 - Chronic kidney disease, unspecified Total Protein Urine Random 2 Weeks N18.9 - Chronic kidney disease, unspecified Sodium Urine Random 2 Weeks N18.9 - Chronic kidney disease, unspecified Creatinine Urine 2 Weeks N18.9 - Chronic kidney disease, unspecified Coding Level of Care Code New Pt Level 5 (90326) Diagnoses CKD (chronic kidney disease) N18.9 Renal artery stenosis I70.1 Congestive heart failure I50.9 Results Reviewed Results Reviewed: 2020: MR/MR angio abdomen wo/w con IMPRESSION: 1. There is diffuse irregular atherosclerotic disease within the abdominal aorta without evidence of abdominal aortic aneurysm. 2. There is a high-grade stenosis of left common iliac artery and occlusion of the right common iliac artery. 3. There is 50% narrowing of the right renal artery and 75% narrowing of the left renal artery. Nephrology Results: Hgb 11.9 g/dl (12.0-16.0) L 07/31/23 WBC 4.2 X10*3/uL (4.8-10.8) L 07/31/23 Plt Count 223 X10*3/uL (160-400) 07/31/23 Sodium 142 mmol/L (135-145) 08/07/23 Potassium 4.3 mmol/L (3.3-5.1) 08/07/23 Chloride 102 mmol/L (96-108) 08/07/23 Carbon Dioxide 27 mmol/L (22-29) 08/07/23 BUN 22 mg/dL (9-16) H 08/07/23 Creatinine 1.61 mg/dL (0.5-1.4) H 08/07/23 Calcium 9.8 mg/dL (8.4-10.2) 08/07/23 Urine Protein Negative mg/dL (Neg-Trace) 07/31/23
== END 2023-08-08 11:22 | disposition home or self-care (01) ==
PROVIDERS: PCP Nurse Practitioner Family; Referring Provider Nurse Practitioner Family; Visit Provider Internal Medicine Hypertension Specialist
DX: N18.9 Chronic kidney disease, unspecified (principal); I70.1 Atherosclerosis of renal artery; I50.9 Heart failure, unspecified
CPT/HCPCS: 99204

== ENCOUNTER → 2023-08-08 10:45 | Outpatient (BNVA) | payer MEDICARE, SELFPAY | PROVIDERS: PCP Nurse Practitioner Family; Referring Provider Nurse Practitioner Family; Visit Provider Internal Medicine Hypertension Specialist | DX: I70.1 Atherosclerosis of renal artery (principal); N18.9 Chronic kidney disease, unspecified; I50.9 Heart failure, unspecified | CPT/HCPCS: 99202 ==

== ENCOUNTER → 2023-08-10 23:59 | Outpatient (BNV) | payer MEDICARE, SELFPAY ==
--- NOTE | 2023-08-13 12:39 | A.OFFVIS_ITS ---
Intake Intake Visit Reasons: Remote HF Monitoring- [facility] Allergies adhesive tape [ADHESIVE TAPE] Allergy (Unknown, Verified 08/11/23 10:07) REDNESS,BLEEDING Iodinated Contrast Media [IVP DYE] Allergy (Unknown, Verified 08/11/23 10:07) HIVES Penicillins [PENICILLINS] Allergy (Unknown, Verified 08/11/23 10:07) NOT EFFECTIVE ether Allergy (Verified 08/11/23 10:07) Unknown EITHER Allergy (Unknown, Uncoded 08/11/23 10:07) PONV Flu shot Allergy (Unknown, Uncoded 08/11/23 10:07) unknown coreg Adverse Reaction (Intermediate, Uncoded 08/11/23 10:07) Rash PFSH Medical History Mitral stenosis Chronic heart failure with preserved ejection fraction (HFpEF) LBBB (left bundle branch block) HTN (hypertension) Paroxysmal atrial fibrillation Renal artery stenosis Peripheral vascular disease Aortic stenosis Coronary arteriosclerosis in [place] artery NSTEMI (non-ST elevated myocardial infarction) HLD (hyperlipidemia) Diabetes Carotid artery stenosis Carpal tunnel syndrome Surgical History History of total left hip arthroplasty (02/05/18) Mitral valve replaced Stented coronary artery Status post peripheral artery angioplasty with insertion of stent S/P TAVR (transcatheter aortic valve replacement) Family History Father Kidney failure Mother No problems noted. Brother Substance use disorder Social History Housing: House Patient Tobacco Use Status: Former Tobacco user Years Smoked: 59 years and quit 4 years ago e-Cigarette/Vaping Use: Currently Using Second Hand Smoke Exposure: Yes Current occupational status: retired Cognitive needs: No Hearing needs: No Vision needs: No Office Procedures Cardiac Device Check Cardiac Device Check Details: Remote heart failure report generated 08/10/2023. Heart failure parameters are stable [id number] Cardiac Device Interrogation, cardio physiologic monitor Procedure code (CPT) selection complete Assessment & Plan Assessment & Plan (1) Biventricular ICD (implantable cardioverter-defibrillator) in place: Comment: [facility] biventricular ICD placed November 2022 for severe LV systolic dysfunction with left bundle-branch block Code(s): Z95.810 - Presence of automatic (implantable) cardiac defibrillator Plan: See above Coding Level of Care Code Procedure Only Diagnoses Biventricular ICD (implantable cardioverter-defibrillator) in place Z95.810 CPT Codes Cardiac Device Check - Cardiac Device 15: [id number] Cardiac Device Interrogation, cardio physiologic monitor ([id number])
== END ==
PROVIDERS: PCP Nurse Practitioner Family; Visit Provider Internal Medicine Cardiovascular Disease
DX: I50.32 Chronic diastolic (congestive) heart failure (principal); Z95.810 Presence of automatic (implantable) cardiac defibrillator
CPT/HCPCS: 93297

== ENCOUNTER 2023-08-11 09:12 | Outpatient (AMB) | payer MEDICARE, SELFPAY ==
[2023-08-11 10:03] VITALS: BP 102/52; PULSE 68; TEMP 36.5; O2SAT 98; BMI 29.4
--- NOTE | 2023-08-11 10:03 | MHC.OFFWIV ---
Intake Vital Signs 08/11/23 10:03 Height 5 ft 6 in Weight 182 lb 6 oz BMI 29.4 BP 102/52 L Blood Pressure Location Rt brachial Position Sitting Pulse 68 Pulse Source Pulse Oximeter Temp 97.7 F Temp Source Oral Pulse Oximetry (%) 98 Oxygen Delivery Method Room Air Intake Visit Reasons: EST/low bp (lobby) Intake Note: Pt is here today c/o low b/p no symptoms noted Patient Tobacco Use Status: Former Tobacco user Allergies adhesive tape [ADHESIVE TAPE] Allergy (Unknown, Verified 08/11/23 10:07) REDNESS,BLEEDING Iodinated Contrast Media [IVP DYE] Allergy (Unknown, Verified 08/11/23 10:07) HIVES Penicillins [PENICILLINS] Allergy (Unknown, Verified 08/11/23 10:07) NOT EFFECTIVE ether Allergy (Verified 08/11/23 10:07) Unknown EITHER Allergy (Unknown, Uncoded 08/11/23 10:07) PONV Flu shot Allergy (Unknown, Uncoded 08/11/23 10:07) unknown coreg Adverse Reaction (Intermediate, Uncoded 08/11/23 10:07) Rash HPI EST/low bp (lobby) HPI Details Patient is a 73-year-old female with a history of heart failure, coronary artery disease, as well as cardiac pacemaker who comes to the walk-in clinic stating that her blood pressures have been low intermittently since yesterday, and that her visiting nurse wanted her to be evaluated in the emergency department yesterday, but she had refused. She reports that her blood pressures are intermittently low all the time and that she does not feel symptomatic from it and is not concerned . Currently she denies any associated symptoms, including dizziness or weakness, chest pressure or discomfort, cough or other respiratory symptoms, urinary issues, altered mental status, fever or chills, myalgias or malaise, or other significant associated symptoms. Her history includes multiple MIs which led to cardiac pacemaker, and she recently was hospitalized for heart failure. She had her torsemide doubled by PCP after that, and blood pressures seem to be still normal, and then she saw Cardiology and Nephrology a few days ago, at which point she had losartan discontinued in case it was the cause of her associated acute kidney injury. She brings in a list of blood pressures with the lowest in the high 90s systolic and 50s diastolic. PFSH Medical History Mitral stenosis Chronic heart failure with preserved ejection fraction (HFpEF) LBBB (left bundle branch block) HTN (hypertension) Paroxysmal atrial fibrillation Renal artery stenosis Peripheral vascular disease Aortic stenosis Coronary arteriosclerosis in [place] artery NSTEMI (non-ST elevated myocardial infarction) HLD (hyperlipidemia) Diabetes Carotid artery stenosis Carpal tunnel syndrome Surgical History History of total left hip arthroplasty (02/05/18) Mitral valve replaced Stented coronary artery Status post peripheral artery angioplasty with insertion of stent S/P TAVR (transcatheter aortic valve replacement) Family History Father Kidney failure Mother No problems noted. Brother Substance use disorder Social History Housing: House Patient Tobacco Use Status: Former Tobacco user Years Smoked: 59 years and quit 4 years ago e-Cigarette/Vaping Use: Currently Using Second Hand Smoke Exposure: Yes Current occupational status: retired Cognitive needs: No Hearing needs: No Vision needs: No Review of Systems Const All systems reviewed & are unremarkable except as noted in HPI and below Physical Exam Vital Signs: Last Vital Signs Temp 97.7 F 08/11/23 10:03 Pulse 68 08/11/23 10:03 BP 102/52 L 08/11/23 10:03 Pulse Ox 98 08/11/23 10:03 Oxygen Delivery Method Room Air 08/11/23 10:03 BMI result Body Mass Index 29.4 Const General: cooperative, comfortable, no acute distress, alert, awake, Physically active and well groomed; No anxious, diaphoretic, ill appearing, intoxicated appearing, poor hygiene or tired appearing Nutritional Appearance: average body habitus Orientation/consciousness: patient oriented x3 Limitations: ambulation with walker Neck Neck: Yes normal visual inspection, Yes no lymphadenopathy, Yes trachea midline, Yes supple and No anterior neck swelling Chest Chest palpation & inspection: normal palpation of entire chest wall Resp Effort & Inspection: normal respiratory effort, able to speak in complete sentences, no audible wheezes, no cough, no grunting, not labored, no nasal flaring, no retractions and symmetric chest movement Auscultation: clear to auscultation bilaterally, no crackles, no rales, no rhonchi, no wheezes, lung sounds not diminished and No rub present Cardio Rate: regular rate Skin Other: Good color, warm and dry Neuro General: patient oriented x3 Psych Appearance: grossly normal Mental Status: mental status grossly normal Speech and movement: Normal speech and movement present Affect: normal affect Attitude: cooperative Thought process: Normal thought process present Insight: Good insight present (Psych) Judgement: Good judgement present (Psych) Results AMB Urinalysis, Automated UA Leukoctes 0 Errol/uL Last Edit by Iris Cash CMA on 08/11/23 11:15 UA Nitrite Negative Last Edit by Iris Cash CMA on 08/11/23 11:15 UA Urobilinogen 0.2 mg/dL Last Edit by Iris Cash CMA on 08/11/23 11:15 UA Protein 0 mg/dL Last Edit by Iris Cash CMA on 08/11/23 11:15 UA pH 5.5 Last Edit by Iris Cash CMA on 08/11/23 11:15 UA Blood 0 Catalino/uL Last Edit by Iris Cash CMA on 08/11/23 11:15 UA Specific Pratt 1.015 Last Edit by Iris Cash CMA on 08/11/23 11:15 UA Ketone Negative Last Edit by Iris Cash CMA on 08/11/23 11:15 UA Bilirubin 0 mg/dL Last Edit by Iris Cash CMA on 08/11/23 11:15 UA Glucose 1000 mg/dL Last Edit by Iris Cash CMA on 08/11/23 11:15 Results Reviewed Results Reviewed: Laboratory Last Values Urine pH (Auto) 5.5 08/11/23 11:13 Specific Pratt (Auto) 1.015 08/11/23 11:13 Urine Protein (Auto) 0 mg/dL 08/11/23 11:13 Glucose (UA)(Auto) 1000 mg/dL 08/11/23 11:13 Urine Ketones (Auto) Negative 08/11/23 11:13 Urine Blood (Auto) 0 Catalino/uL 08/11/23 11:13 Urine Nitrite (Auto) Negative 08/11/23 11:13 Urine Bilirubin (Auto) 0 mg/dL 08/11/23 11:13 Urine Urobilinogen (Auto) 0.2 mg/dL 08/11/23 11:13 Leukocyte Esterase (Auto) 0 Errol/uL 08/11/23 11:13 Assessment & Plan Assessment & Plan (1) Hypotension: Code(s): I95.9 - Hypotension, unspecified Qualifiers: Hypotension type: idiopathic hypotension Qualified Code(s): I95.0 - Idiopathic hypotension Plan: Patient is a 73-year-old female with multiple cardiac comorbidities as well as chronic kidney disease and diabetes, who comes to the walk-in upon urging from the VNA service. She is currently hypotensive and asymptomatic with her exam mostly unremarkable other than hypotension, which does not seem to be orthostatic in nature. Her differential includes sepsis in addition to her cardiac and renal problems, so a dip was done today which does not indicate a UTI. Her EKG showed a paced rhythm. I told her that due to her intermittent low blood pressure readings, that it would be safest if she did go to the emergency department for evaluation, and she refuses today. She states that she just saw 2 specialists a few days ago and I was fine . She also reports that she frequently gets low blood pressure readings and that these current ones were her norm, however I can not find any recent low blood pressures on her last few visits. Patient continued to refuse ED evaluation, so I ordered repeat CBC and CMP labs today, which she begrudgingly agreed to do because my doctor is here and I don't want him to yell at me, even though I just had labs done . I told her that I think she should call her airport security screener as soon as possible and report her low blood pressures to get their advice on the matter, and I advised that she reconsider the emergency department in the setting of any potentially worrisome symptom, which she did agree to do. Ultimately she left the walk-in to go home, and not to the emergency department, to which I made it clear was AMA. Orders: Orders UA CC w/rflx Micro + Cult Today R30.0 - Dysuria AMB Urinalysis Automated Today Z13.9 - Encounter for screening, unspecified Complete Blood Count Auto Diff Today I95.9 - Hypotension, unspecified Comprehensive Met. Panel Today I95.9 - Hypotension, unspecified Coding Level of Care Code Est Pt Level 5 (87153) Diagnoses Idiopathic hypotension I95.0 Hypotension type: idiopathic hypotension
== END 2023-08-11 12:57 | disposition home or self-care (01) ==
PROVIDERS: PCP Nurse Practitioner Family; Visit Provider Physician Assistant Medical
DX: I95.0 Idiopathic hypotension (principal); R30.0 Dysuria; I25.10 Atherosclerotic heart disease of native coronary artery without angina pectoris; I50.9 Heart failure, unspecified; Z95.0 Presence of cardiac pacemaker
CPT/HCPCS: 81003; 93000; 99215

== ENCOUNTER 2023-08-11 11:50 | Outpatient (REF) | payer MEDICARE, SELFPAY ==
[2023-08-11 13:39] LABS: MANUAL DIFF FLAG NO
[2023-08-11 13:40] LABS: Basophils Absolute Auto 0.1 X10*3/uL (0.0-0.2); Basophils Percent Auto 1.1 % (0-2); Eosinophils Absolute Auto 0.2 X10*3/uL (0.0-0.4); Eosinophils Percent Auto 2.9 % (0-4); Hematocrit 38.1 % (37.0-47.0); Hemoglobin 11.8 g/dl (12.0-16.0); Imm Gran Abs Auto 0.01 X10*3/uL (0.00-0.03); Imm Gran Pct Auto 0.2 % (0.0-0.4); Lymphocytes Absolute Auto 1.1 X10*3/uL (1.2-4.9); Lymphocytes Percent Auto 20.1 % (20-40); Mean Corpuscular Hemoglobin 26.3 pg (27.0-33.0); Mean Corpuscular Volume 84.9 fL (80.0-98.0); Mean Platelet Volume 10.2 fL (9.4-12.3); Monocytes Absolute Auto 0.7 X10*3/uL (0.1-1.2); Monocytes Percent Auto 12.3 % (2-11); Neutrophils Absolute Auto 3.5 x10*3/uL (2.0-8.3); Neutrophils Percent Auto 63.4 % (45-73); Platelet Count 196 X10*3/uL (160-400); Red Blood Count 4.49 X10*6/uL (4.20-5.50); Red Cell Distribution Width 15.6 % (11.0-16.0); White Blood Count 5.5 X10*3/uL (4.8-10.8)
[2023-08-11 13:50] LABS: Alanine Aminotransferase 27 U/L (0-31); Albumin Level 4.1 g/dL (3.5-5.0); Alkaline Phosphatase 103 U/L (39-117); Anion Gap 14 (12-20); Aspartate Amino Transferase 22 U/L (5-31); Bilirubin Total 0.4 mg/dL (0.0-1.0); Blood Urea Nitrogen 18 mg/dL (9-16); Calcium 9.5 mg/dL (8.4-10.2); Carbon Dioxide 29 mmol/L (22-29); Chloride 102 mmol/L (96-108); Estimated Glomerular Filt Rate 39; Glucose Random 105 mg/dL (60-115); Potassium 3.4 mmol/L (3.3-5.1); Sodium 142 mmol/L (135-145); Total Protein 7.2 g/dL (6.5-8.0)
== END 2023-08-11 11:51 | disposition home or self-care (01) ==
LOC: HO.HMGCLDS 11:50
PROVIDERS: PCP Nurse Practitioner Family; Visit Provider Physician Assistant Medical
DX: Z13.89 Encounter for screening for other disorder (principal)
CPT/HCPCS: 36415; 80053; 85025

== ENCOUNTER 2023-08-11 11:55 | Outpatient (REF) | payer MEDICARE, SELFPAY ==
[2023-08-11 13:44] LABS: Appearance Urine Clear; Color Urine Yellow; Glucose Urine UA >=1000 mg/dL (Negative); Leukocyte Esterase Urine Negative (Negative); Nitrite Urine Negative (Negative); Specific Gravity - Urine 1.015 (1.005-1.025); UMIC TRIGGER UACC YES; Urine Blood Negative (Negative); Urine Ketones Negative (Negative); Urine Protein Negative (Neg-Trace)
[2023-08-11 14:23] LABS: Bacteria Urine None Seen (None Seen); Hyaline Casts Urine 0-2 /LPF (0-2); RBC Urine 0-2 /HPF (0-2); Squamous Epithelial Cell Urine 0-2 /HPF (0-2); WBC Urine 0-5 /HPF (0-5)
== END 2023-08-11 11:56 | disposition home or self-care (01) ==
LOC: HO.LAB 11:55
PROVIDERS: Visit Provider Physician Assistant Medical
DX: R30.0 Dysuria (principal); I95.9 Hypotension, unspecified
CPT/HCPCS: 36415; 80053; 81001; 85025

== ENCOUNTER 2023-08-30 12:29 | Outpatient (REF) | payer MEDICARE, SELFPAY ==
[2023-08-30 12:45] LABS: MANUAL DIFF FLAG NO
[2023-08-30 12:56] LABS: Basophils Absolute Auto 0.1 X10*3/uL (0.0-0.2); Basophils Percent Auto 0.9 % (0-2); Eosinophils Absolute Auto 0.2 X10*3/uL (0.0-0.4); Eosinophils Percent Auto 2.8 % (0-4); Hematocrit 39.7 % (37.0-47.0); Hemoglobin 12.4 g/dl (12.0-16.0); Imm Gran Abs Auto 0.01 X10*3/uL (0.00-0.03); Imm Gran Pct Auto 0.2 % (0.0-0.4); Lymphocytes Absolute Auto 1.2 X10*3/uL (1.2-4.9); Lymphocytes Percent Auto 23.3 % (20-40); Mean Corpuscular HGB Conc 31.2 g/dl (31.0-35.0); Mean Corpuscular Volume 83.2 fL (80.0-98.0); Mean Platelet Volume 9.7 fL (9.4-12.3); Monocytes Absolute Auto 0.6 X10*3/uL (0.1-1.2); Monocytes Percent Auto 11.6 % (2-11); Neutrophils Absolute Auto 3.2 x10*3/uL (2.0-8.3); Neutrophils Percent Auto 61.2 % (45-73); Platelet Count 212 X10*3/uL (160-400); Red Blood Count 4.77 X10*6/uL (4.20-5.50); Red Cell Distribution Width 15.8 % (11.0-16.0); White Blood Count 5.3 X10*3/uL (4.8-10.8)
[2023-08-30 13:33] LABS: Anion Gap 15 (12-20); Blood Urea Nitrogen 20 mg/dL (9-16); Calcium 9.9 mg/dL (8.4-10.2); Carbon Dioxide 28 mmol/L (22-29); Chloride 104 mmol/L (96-108); Estimated Glomerular Filt Rate 43; Glucose Random 154 mg/dL (60-115); Potassium 4.2 mmol/L (3.3-5.1); Sodium 143 mmol/L (135-145)
== END 2023-08-30 12:30 | disposition home or self-care (01) ==
LOC: HO.LAB 12:29
PROVIDERS: PCP Nurse Practitioner Family; Visit Provider Internal Medicine Cardiovascular Disease
DX: I35.0 Nonrheumatic aortic (valve) stenosis (principal); Z98.890 Other specified postprocedural states
CPT/HCPCS: 36415; 80048; 85025

== ENCOUNTER 2023-08-31 07:31 | Outpatient (REF) | payer MEDICARE, SELFPAY ==
--- NOTE | ~2023-08-31 | US_ITS ---
EXAMINATION: ULTRASOUND RENAL WITH DOPPLER CLINICAL INFORMATION: CAD, renal artery stenosis. Left renal stent placement in 2020. COMPARISON: Renal Doppler 03/17/2020. TECHNIQUE: Real-time grayscale, color Doppler, and duplex Doppler evaluation of the kidneys and renal vasculature was performed. FINDINGS: RENAL MEASUREMENTS: Right: 9.9 x 4.2 x 5.0 cm (Sag x AP x TV) Left: 10.5 x 5.7 x 6.3 cm (Sag x AP x TV) The renal parenchyma appears normal. No hydronephrosis or nephrolithiasis. DOPPLER INTERROGATION: AORTA: Mid aorta: 50.9 cm/sec RIGHT MAIN RENAL ARTERY: Proximal: 165 cm/sec Mid: 202 cm/sec Distal: 170 cm/sec LEFT MAIN RENAL ARTERY: Proximal: 127 cm/sec Mid: 117 cm/sec Distal: 148 cm/sec RENAL-AORTIC RATIO (RAR): Right: 4.0 Left: 2.9 SEGMENTAL RESISTIVE INDICES: Right: 0.79-0.86 Left: 0.83-0.87 RENAL VEINS: Right: Patent with normal waveform. Left: Patent with normal waveform. US/US renal doppler IMPRESSION: 1. Left renal artery velocities have normalized status post stent placement. 2. Elevated velocity and elevated RAR in the mid right renal artery consistent with a greater than 60% stenosis. Consider CTA or MRA of the abdomen without and with contrast for confirmation. 3. Elevated resistive indices bilaterally consistent with chronic kidney disease. 4. There is no hydronephrosis.
--- NOTE | ~2023-08-31 | US_ITS ---
EXAMINATION: ULTRASOUND RENAL WITH DOPPLER CLINICAL INFORMATION: CAD, renal artery stenosis. Left renal stent placement in 2020. COMPARISON: Renal Doppler 03/17/2020. TECHNIQUE: Real-time grayscale, color Doppler, and duplex Doppler evaluation of the kidneys and renal vasculature was performed. FINDINGS: RENAL MEASUREMENTS: Right: 9.9 x 4.2 x 5.0 cm (Sag x AP x TV) Left: 10.5 x 5.7 x 6.3 cm (Sag x AP x TV) The renal parenchyma appears normal. No hydronephrosis or nephrolithiasis. DOPPLER INTERROGATION: AORTA: Mid aorta: 50.9 cm/sec RIGHT MAIN RENAL ARTERY: Proximal: 165 cm/sec Mid: 202 cm/sec Distal: 170 cm/sec LEFT MAIN RENAL ARTERY: Proximal: 127 cm/sec Mid: 117 cm/sec Distal: 148 cm/sec RENAL-AORTIC RATIO (RAR): Right: 4.0 Left: 2.9 SEGMENTAL RESISTIVE INDICES: Right: 0.79-0.86 Left: 0.83-0.87 RENAL VEINS: Right: Patent with normal waveform. Left: Patent with normal waveform. US/US renal BI IMPRESSION: 1. Left renal artery velocities have normalized status post stent placement. 2. Elevated velocity and elevated RAR in the mid right renal artery consistent with a greater than 60% stenosis. Consider CTA or MRA of the abdomen without and with contrast for confirmation. 3. Elevated resistive indices bilaterally consistent with chronic kidney disease. 4. There is no hydronephrosis.
== END 2023-08-31 07:32 | disposition home or self-care (01) ==
LOC: HO.US 07:31
PROVIDERS: PCP Nurse Practitioner Family; Visit Provider Internal Medicine Hypertension Specialist
DX: N18.9 Chronic kidney disease, unspecified (principal); I70.1 Atherosclerosis of renal artery
CPT/HCPCS: 76775; 93975

== ENCOUNTER → 2023-09-05 08:55 | Outpatient (REF) | payer MEDICARE, SELFPAY ==
--- NOTE | 2023-09-05 08:59 | CA_ITS ---
Transthoracic Echocardiogram Patient (Last, First, Middle): Karishma Dwyer M Gender: Female Date of : 1950 Age: 73 Procedure Date: 09/05/2023 Procedure Type: Transthoracic Echocardiogram Location: OP Height: 167.64 cm Weight: 83.01 kg BSA: 1.93 m2 Heart Rate: bpm BP: 110 / 70 mmHg Vacuum Evaporation Operator: TO Referring MD: Christo Andrew MD Angiography Technologist: Christo Andrew MD Symptoms: I42.9 - Cardiomyopathy, unspecified Study Quality: Technically Difficult ECG Rhythm: Sinus Conclusions: - 1. Mildly dilated left ventricle with moderate to severe LV systolic dysfunction with LVEF of 30-35% with impaired relaxation filling pattern 2. At least moderately dilated left atrium 3. Normally function bioprosthetic transcatheter aortic valve replacement with mean gradient of 12 mmHg 4. Normally function bioprosthetic transcatheter mitral valve replacement with mean gradient of 6-7 mmHg 5. Normal RV systolic pressure 6. No gross pericardial effusion Findings Procedure Information The patient declines contrast. Left Ventricle Mildly increased left ventricular cavity size. There is mildly increased left ventricular wall thickness. The left ventricular systolic function is moderate to severely decreased. The visually estimated ejection fraction is between 30-35%. Spectral Doppler is indicative of an impaired relaxation filling pattern. Right Ventricle Mildly increased right ventricular cavity size. There is normal right ventricular systolic function. There is an ICD wire seen in the right ventricle. Atria The left atrium is moderately dilated. Interatrial shunt cannot be excluded. The right atrium is mildly dilated. A pacemaker wire is identified in the right atrium. Aortic Valve A bioprosthetic aortic valve is present. The prosthetic aortic valve appears to be functioning normally. The mean gradient is 12 mmHg. There is no aortic valve regurgitation. known transcatheter aortic valve replacement Mitral Valve A bioprosthetic mitral valve is present. The prosthetic mitral valve appears to be functioning normally. known transcatheter mitral valve replacement with bioprosthesis. Mean gradient measured to be 6-7 mmHg. The valve is well seated without abnormal rocking motion Pulmonic Valve The pulmonic valve was not well visualized. Tricuspid Valve Normal tricuspid valve structure. There is trace tricuspid valve regurgitation. The right ventricular systolic pressure is normal. The right ventricular systolic pressure is 24 mmHg. Normal right atrial pressure. There is no evidence of pulmonary hypertension. Great Vessels All visible segments of the aorta are normal in size. The pulmonary artery was not well visualized. Venous The inferior vena cava is mildly dilated and collapses greater than 50% with inspiration. Pericardium/Pleural There is no evidence of pericardial effusion. Prior Study Comparison Changes noted compared to prior study dated: 12/31/2020. compared to prior study from this institution there is reduction LV ejection fraction. Although she is known to have cardiomyopathy from prior studies at a different institution Measurements 2D Linear Measurements IVSd: 1.26 0.6-0.9/0.6-1.0 cm LVIDd: 5.64 3.9-5.3/4.2-5.9 cm LVIDd Index: 2.92 2.4-3.2/2.2-3.1 cm/m2 LVIDs: 4.44 2.0-3.6 cm LVPWd: 1.04 0.7-1.1 cm LA Diam: 4.50 2.7-3.8/3.0-4.0 cm LAIDs Index: 2.33 1.5-2.3 cm/m2 LV Mass: 334.01 67-162/88-224 g LV Mass Index: 173.06 43-95/49-115 g/m2 LVOT Diam: 2.00 3.0+(-)1.3 cm 2D Systolic Function EF 2C: 33.40 >55% Mitral Valve MV VTI: 0.70 MV Pk [place]: 1.94 MV Mn [place]: 1.28 MV Pk Grad: 15.00 MV Mn Grad: 7.00 MV Pk E: 1.27 MV PK A: 1.66 MV Decel Time: 381.00 E/A: 0.80 E'Lateral: 3.59 E'Medial: 2.72 E/E' Med: 46.70 E/E' Lat: 35.40 PHT: 112.00 MVA PHT: 1.96 MVA Continuity: 1.22 Decel [place]: 3.33 Aortic Valve AoV Pk [place]: 2.27 AoV Mn [place]: 1.65 AoV VTI: 0.56 AoV Pk Grad: 21.00 Aov Mn Grad: 12.00 PING Cont.VTI: 1.53 LVOT LVOT Pk [place]: 1.17 LVOT Mn [place]: 0.77 LVOT VTI: 0.27 LVOT Pk Grad: 5.00 LVOT Mn Grad: 3.00 LVOT Diam: 2.00 LVOT Area: 3.14 Diastolic Function MV Pk E: 1.27 MV Pk A: 1.66 E/A: 0.80 E'Medial: 2.72 E/E' Med: 46.70 E' Laterial: 3.59 E/E' Lat: 35.40 Right Ventricle TAPSE (mm): 20.90 TVS' [place]: 11.30 Tricuspid Valve TR Pk [place]: 2.03 TR Pk Grad: 16.00 RA Press: 8.00 RVSP: 24.00 Great Vessels Aorta Ao Asc: 3.40 2.1-3.4 cm Updated in Other Vendor System with Status of Final Christo Andrew MD electronically signed on 09/05/2023 3:18:26 PM with status of Final
== END ==
LOC: HO.CARD 08:55
PROVIDERS: PCP Nurse Practitioner Family; Visit Provider Internal Medicine Cardiovascular Disease
DX: I42.9 Cardiomyopathy, unspecified (principal); I50.9 Heart failure, unspecified
CPT/HCPCS: 93306; 99212

== ENCOUNTER → 2023-09-05 08:59 | Outpatient (BNV) | payer MEDICARE, SELFPAY | PROVIDERS: PCP Nurse Practitioner Family; Visit Provider Internal Medicine Cardiovascular Disease | DX: I42.9 Cardiomyopathy, unspecified (principal) | CPT/HCPCS: 93306 ==

== ENCOUNTER 2023-09-05 12:16 | Outpatient (AMB) | payer MEDICARE, SELFPAY ==
[2023-09-05 12:18] VITALS: BP 76/50; PULSE 78; O2SAT 96; BMI 29.4
--- NOTE | 2023-09-05 12:18 | HO.NEPHOV ---
HPI HPI Comments History of Present Illness Details . 73 yr old woman with a h/o severe atherosclerotic disease including CAD, PVD/ Carotid stenosis/SPENCER h/o DM > 20 years; No proteinuria h/o Renal artery stenosis s/p Left Renal Artery Stent placement : Jun 2021 Has a baseline creatinine of 1.2 mg/dl as on May 2023 On 08/07/23; Creatinine bumped up to 1.6 Torsemide was increased from 10 mg to 20 mg daily about a weekago She is on Losartan 25 mg daily No other new medications have been added. Not on NSAIDS Accompanied by daughter Waiting for hip surgery- end of August 2023 Recently hospitalized for CHF; She has severe and EF of 20% . [facility] Medical History Mitral stenosis Chronic heart failure with preserved ejection fraction (HFpEF) LBBB (left bundle branch block) HTN (hypertension) Paroxysmal atrial fibrillation Renal artery stenosis Peripheral vascular disease Aortic stenosis Coronary arteriosclerosis in [place] artery NSTEMI (non-ST elevated myocardial infarction) HLD (hyperlipidemia) Diabetes Carotid artery stenosis Carpal tunnel syndrome Surgical History History of total left hip arthroplasty (02/05/18) Mitral valve replaced Stented coronary artery Status post peripheral artery angioplasty with insertion of stent S/P TAVR (transcatheter aortic valve replacement) Family History Father Kidney failure Mother No problems noted. Brother Substance use disorder Social History Housing: House Patient Tobacco Use Status: Former Tobacco user Years Smoked: 59 years and quit 4 years ago e-Cigarette/Vaping Use: Currently Using Second Hand Smoke Exposure: Yes Current occupational status: retired Cognitive needs: No Hearing needs: No Vision needs: No Vital Signs 09/05/23 12:18 Height 5 ft 6 in Weight 182 lb BMI 29.4 BP 76/50 L Blood Pressure Location Rt brachial Position Sitting Pulse 78 Pulse Source Pulse Oximeter Pulse Oximetry (%) 96 Oxygen Delivery Method Room Air Physical Exam Vital Signs: Last Vital Signs Pulse 78 09/05/23 12:18 BP 76/50 L 09/05/23 12:18 Pulse Ox 96 09/05/23 12:18 Oxygen Delivery Method Room Air 09/05/23 12:18 BMI result Body Mass Index 29.4 Const General: comfortable Nutritional Appearance: well nourished Orientation/consciousness: patient oriented x3 HEENT Head: No normal to inspection Mouth: moist mucous membranes Neck Neck: Yes supple and Yes no JVD Resp Auscultation: clear to auscultation bilaterally and no rales Cardio Jugular venous distension: no JVD Palpation: no palpable S3 and no palpable S4 Heart sounds: no rubs GI Palpation (GI): Soft to palpation and nontender Percussion: No Fluid wave present General: Yes no CVA tenderness Back/Spine/Pelvis Back: no CVA tenderness Skin General skin exam: no rashes or lesions noted Neuro General: patient oriented x3 Extrem General: Yes no pedal edema and No clubbing Assessment & Plan Assessment & Plan (1) CKD (chronic kidney disease): Code(s): N18.9 - Chronic kidney disease, unspecified (2) Renal artery stenosis: Code(s): I70.1 - Atherosclerosis of renal artery (3) Congestive heart failure: Code(s): I50.9 - Heart failure, unspecified Plan . Elderly woman with CKD in a setting of long standing HTN and Vascular disease / Renal artery stenosis- s/p Stent to left renal artery Baseline creatinine is 1.2 Sustained RAVI Most likely due to hypoperfusion after increasing Torsemide She has been on Losartan in a setting of SPENCER- which could have disrupted renal autoregualtion leading to hypoperfusion Obstructive uropathy- albiet less likely, should be ruled out NO evidence of AGN/Ain based on urine studies Recommend Stop Losartan in a setting of RAVI in a patient with SPENCER Reassess fluid status and may need to lower diuretics if needed. Avoid NSAIDS and nephrotoxins SPENCER - s/p Stent Since the renal function stable and blood pressure control we will try to manage her conservatively. No absolute contraindicaiton for surgery from a renal stand point . Orders: Orders Basic Metabolic Panel 09/05/23 N18.9 - Chronic kidney disease, unspecified Coding Level of Care Code Est Pt Level 4 (89434) Diagnoses CKD (chronic kidney disease) N18.9 Renal artery stenosis I70.1 Congestive heart failure I50.9 Results Reviewed Results Reviewed: Renal Doppler IMPRESSION: 1. Left renal artery velocities have normalized status post stent placement. 2. Elevated velocity and elevated RAR in the mid right renal artery consistent with a greater than 60% stenosis. Consider CTA or MRA of the abdomen without and with contrast for confirmation. 3. Elevated resistive indices bilaterally consistent with chronic kidney disease. 4. There is no hydronephrosis. Nephrology Results: Hgb 11.8 g/dl (12.0-16.0) L 09/27/23 WBC 4.6 X10*3/uL (4.8-10.8) L 09/27/23 Plt Count 180 X10*3/uL (160-400) 09/27/23 Sodium 142 mmol/L (135-145) 09/27/23 Potassium 3.9 mmol/L (3.3-5.1) 09/27/23 Chloride 104 mmol/L (96-108) 09/27/23 Carbon Dioxide 28 mmol/L (22-29) 09/27/23 BUN 19 mg/dL (9-16) H 09/27/23 Creatinine 1.18 mg/dL (0.5-1.4) 09/27/23 Calcium 9.5 mg/dL (8.4-10.2) 09/27/23 Urine Protein Negative mg/dL (Neg-Trace) 09/27/23 Renal US 08/31/23
== END 2023-09-05 12:46 | disposition home or self-care (01) ==
PROVIDERS: PCP Nurse Practitioner Family; Visit Provider Internal Medicine Hypertension Specialist
DX: N18.9 Chronic kidney disease, unspecified (principal); I70.1 Atherosclerosis of renal artery; I50.9 Heart failure, unspecified
CPT/HCPCS: 99214

== ENCOUNTER 2023-09-12 15:29 | Outpatient (AMB) | payer MEDICARE, SELFPAY ==
--- NOTE | 2023-09-12 15:34 | MHC.PC.OV ---
Vital Signs 09/12/23 15:37 Height 5 ft 6 in Weight 182 lb BMI 29.4 BP 100/52 L Blood Pressure Location Lt brachial Position Sitting Pulse 72 Pulse Source Pulse Oximeter Pulse Oximetry (%) 95 Oxygen Delivery Method Room Air Intake Visit Reasons: RT NISHANT ,BMP,CBP W/diff.,EKG Intake Note: pt is here for NISHANT Allergies adhesive tape [ADHESIVE TAPE] Allergy (Unknown, Verified 09/12/23 18:11) REDNESS,BLEEDING Iodinated Contrast Media [IVP DYE] Allergy (Unknown, Verified 09/12/23 18:11) HIVES Penicillins [PENICILLINS] Allergy (Unknown, Verified 09/12/23 18:11) NOT EFFECTIVE ether Allergy (Verified 09/12/23 18:11) Unknown EITHER Allergy (Unknown, Uncoded 09/12/23 18:11) PONV Flu shot Allergy (Unknown, Uncoded 09/12/23 18:11) unknown coreg Adverse Reaction (Intermediate, Uncoded 09/12/23 18:11) Rash Medication List - Last Reconciled 09/12/23 by TACO Oconnell- amiodarone 200 mg PO DAILY apixaban (Eliquis) 5 mg PO BID 90 days atorvastatin 80 mg PO DAILY blood sugar diagnostic (FreeStyle Lite Strips) tid testing cholecalciferol (vitamin D3) 50 mcg PO DAILY clopidogrel 75 mg PO DAILY diphenhydramine HCl (Benadryl Allergy) 50 mg PO BEDTIME PRN empagliflozin (Jardiance) 10 mg PO DAILY ezetimibe (Zetia) 10 mg PO DAILY FreeStyle Bhavani 2 [place] (flash glucose scanning reader) TID NS FreeStyle Bhavani 2 Sensor (flash glucose sensor) TID NS gabapentin 100 mg PO TID glipizide 10 mg PO DAILY isosorbide mononitrate ER 30 mg PO DAILY lancets (FreeStyle Lancets) bid testing for diabetes metformin 500 mg PO BID 90 days metoprolol succinate ER 25 mg PO DAILY nitroglycerin 0 mg sublingual nystatin 1 appl topical BID omega-3 fatty acids 2,000 mg PO BID pen needle, diabetic (BD Ultra-Fine Micro Pen Needle) daily, on days not on metformin torsemide 10 mg PO DAILY Tobacco use date assessed: 07/31/23 Fall risk assessment: 2 + Falls in past year Last assessed Fall Risk: 09/12/23 Dental Screening Dental Screen Date: 09/12/23 Did you have a dental visit in the last 12 months?: Yes Did you have a dental problem in the last 6 months where you did not have access to dental care?: No Was dental information given to patient?: Patient has dentist HPI RT NISHANT ,BMP,CBP W/diff.,EKG HPI Details pre op. pt was [facility] at the end of june 2023 (NSTEMI, acute resp faliure, pneumonia, CHF exacerbation). RT total hip scheduled for September 24. PATIENT NEEDS TO BE CLEARED BY CARDIOLOGY BEFORE ANY SURGERY CAN BE PERFORMED. Labs ordered. pt aware that she needs cardiac clearance as well. denies any fevers, chills, N/V, dizziness, CP, SOB. pt did report taking a small fall today. small abrasion to castaneda hand and to right elbow region, denied hitting her head [facility] Medical History Mitral stenosis Chronic heart failure with preserved ejection fraction (HFpEF) LBBB (left bundle branch block) HTN (hypertension) Paroxysmal atrial fibrillation Renal artery stenosis Peripheral vascular disease Aortic stenosis Coronary arteriosclerosis in [place] artery NSTEMI (non-ST elevated myocardial infarction) HLD (hyperlipidemia) Diabetes Carotid artery stenosis Carpal tunnel syndrome Surgical History History of total left hip arthroplasty (02/05/18) Mitral valve replaced Stented coronary artery Status post peripheral artery angioplasty with insertion of stent S/P TAVR (transcatheter aortic valve replacement) Family History Father Kidney failure Mother No problems noted. Brother Substance use disorder Social History Housing: House Patient Tobacco Use Status: Former Tobacco user Years Smoked: 59 years and quit 4 years ago e-Cigarette/Vaping Use: Currently Using Second Hand Smoke Exposure: Yes Current occupational status: retired Cognitive needs: No Hearing needs: No Vision needs: No Questionnaire Thrive Questionnaire Date Thrive assessed: 07/27/22 LEOBARDO-7 AMB Questionnaire LEOBARDO-7 Date LEOBARDO - 7 assessed: 07/27/22 Source: Developed by Drs. Giacomo Cornell, Liz Timmons, Jorge hCiu and colleagues, with an educational luma from [employer]. Physical exam (Primary Care) Vital Signs: Last Vital Signs Pulse 72 09/12/23 15:37 BP 100/52 L 09/12/23 15:37 Pulse Ox 95 09/12/23 15:37 Oxygen Delivery Method Room Air 09/12/23 15:37 BMI result Body Mass Index 29.4 Tobacco/Smoking Status: Tobacco use Status Tobacco use date assessed 07/31/23 09/12/23 15:35 Patient Tobacco Use Status Former Tobacco user 09/12/23 15:35 e-Cigarette/Vaping Use Currently Using 09/12/23 15:35 Thrive Assessment: Date of Thrive Assessment Date Thrive assessed 07/27/22 09/12/23 15:35 Const Other: uses walker (rolling) General: cooperative Orientation/consciousness: oriented to person Resp Effort & Inspection: normal respiratory effort Cardio Rate: regular rate Rhythm: regular rhythm Heart sounds: S1 normal heart sound present, S2 normal heart sound present and Murmur heart sound present systolic Skin Other: skin abrasion to right castaneda hand, right elbow, no signs of infection. full ROM to RUE and right wrist Neuro General: oriented to person Extrem Other: trace edema to BLE Psych Appearance: grossly normal Speech and movement: Normal speech and movement present Thought content: Normal thought content present Insight: Good insight present (Psych) Assessment and Plan Assessment & Plan (1) Pre-op evaluation: Code(s): Z01.818 - Encounter for other preprocedural examination Plan NEEDS TO BE CLEARED BY CARDIOLOGY Orders: Orders Complete Blood Count Auto Diff Today Z01.818 - Encounter for other preprocedural examination Comprehensive Met. Panel Today Z01.818 - Encounter for other preprocedural examination Coding Level of Care Code Est Pt Prev Care >65y(05410) Diagnoses Pre-op evaluation Z01.818
[2023-09-12 15:37] VITALS: BP 100/52; PULSE 72; O2SAT 95; BMI 29.4
== END 2023-09-12 16:28 | disposition home or self-care (01) ==
PROVIDERS: PCP Nurse Practitioner Family; Visit Provider Nurse Practitioner Family
DX: Z01.818 Encounter for other preprocedural examination (principal)
CPT/HCPCS: 99213

== ENCOUNTER 2023-09-24 08:56 | Outpatient (AMB) | payer MEDICARE, SELFPAY ==
[2023-09-24 09:00] VITALS: BMI 29.4
--- NOTE | 2023-09-24 09:00 | MHC.OFFVIS ---
Intake Vital Signs 09/24/23 09:00 Height 5 ft 6 in Weight 182 lb BMI 29.4 Intake Visit Reasons: OV - NISHANT Cancelled - Discuss Alternative Treatment Intake Note: Karishma 73 year old female who presents today for a follow up of her right hip. Hx of Left NISHANT 02/05/2018. Patient has severe right hip OA and QOL is severely diminished. She has multiple cardiac comorbidities, surgery was cancelled given cardiac risk is too high. Allergies adhesive tape [ADHESIVE TAPE] Allergy (Unknown, Verified 09/24/23 09:01) REDNESS,BLEEDING Iodinated Contrast Media [IVP DYE] Allergy (Unknown, Verified 09/24/23 09:01) HIVES Penicillins [PENICILLINS] Allergy (Unknown, Verified 09/24/23 09:01) NOT EFFECTIVE ether Allergy (Verified 09/24/23 09:01) Unknown EITHER Allergy (Unknown, Uncoded 09/24/23 09:01) PONV Flu shot Allergy (Unknown, Uncoded 09/24/23 09:01) unknown coreg Adverse Reaction (Intermediate, Uncoded 09/24/23 09:01) Rash HPI OV - NISHANT Cancelled - Discuss Alternative Treatment HPI Details Karishma 73 year old female who presents today for a follow up of her right hip. Hx of Left NISHANT 02/05/2018. Patient has sever right hip OA and QOL is severely diminished. She has multiple cardiac comorbidities. She recently was hospitalized with CHF and has a mitral valve replacement and a biventricular ICD. She was seen by cardiology and deemed high risk. [facility] Medical History Mitral stenosis Chronic heart failure with preserved ejection fraction (HFpEF) LBBB (left bundle branch block) HTN (hypertension) Paroxysmal atrial fibrillation Renal artery stenosis Peripheral vascular disease Aortic stenosis Coronary arteriosclerosis in [place] artery NSTEMI (non-ST elevated myocardial infarction) HLD (hyperlipidemia) Diabetes Carotid artery stenosis Carpal tunnel syndrome Surgical History History of total left hip arthroplasty (02/05/18) Mitral valve replaced Stented coronary artery Status post peripheral artery angioplasty with insertion of stent S/P TAVR (transcatheter aortic valve replacement) Family History Father Kidney failure Mother No problems noted. Brother Substance use disorder Social History Housing: House Patient Tobacco Use Status: Former Tobacco user Years Smoked: 59 years and quit 4 years ago e-Cigarette/Vaping Use: Currently Using Second Hand Smoke Exposure: Yes Current occupational status: retired Cognitive needs: No Hearing needs: No Vision needs: No Physical Exam Vital Signs: BMI result Body Mass Index 29.4 Extrem Other: Antalgic gait and walker dependent. painful hip ROM Assessment & Plan Assessment & Plan (1) Primary osteoarthritis of right hip: Code(s): M16.11 - Unilateral primary osteoarthritis, right hip Plan: Karishma has severe right hip OA. Surgical risk is high and we are cancelling the case. I discussed this with her. I recommend she continue to use the walker. (2) NSTEMI (non-ST elevated myocardial infarction): Comment: 07/04/23 [facility] type II due to demand ischemia due to CHF Code(s): I21.4 - Non-ST elevation (NSTEMI) myocardial infarction Plan: (3) Wound of foot: Code(s): S91.309A - Unspecified open wound, unspecified foot, initial encounter Plan: (4) Cardiomyopathy: Code(s): I42.9 - Cardiomyopathy, unspecified (5) Biventricular ICD (implantable cardioverter-defibrillator) in place: Comment: [facility] biventricular ICD placed November 2022 for severe LV systolic dysfunction with left bundle-branch block Code(s): Z95.810 - Presence of automatic (implantable) cardiac defibrillator Plan: (6) S/P transcatheter mitral valve replacement (TMVR): Code(s): Z95.2 - Presence of prosthetic heart valve Plan: Plan Coding Level of Care Code Est Pt Level 4 (53429) Diagnoses Primary osteoarthritis of right hip M16.11 NSTEMI (non-ST elevated myocardial infarction) I21.4 Wound of foot S91.309A Cardiomyopathy I42.9 Biventricular ICD (implantable cardioverter-defibrillator) in place Z95.810 S/P transcatheter mitral valve replacement (TMVR) Z95.2
== END 2023-09-24 11:27 | disposition home or self-care (01) ==
PROVIDERS: PCP Nurse Practitioner Family; Visit Provider Orthopaedic Surgery
DX: M16.11 Unilateral primary osteoarthritis, right hip (principal); I21.4 Non-ST elevation (NSTEMI) myocardial infarction; I42.9 Cardiomyopathy, unspecified; Z95.810 Presence of automatic (implantable) cardiac defibrillator; Z95.2 Presence of prosthetic heart valve
CPT/HCPCS: 99214

== ENCOUNTER → 2023-09-24 08:56 | Outpatient (BNVA) | payer MEDICARE, SELFPAY | PROVIDERS: PCP Nurse Practitioner Family; Visit Provider Orthopaedic Surgery | DX: M16.11 Unilateral primary osteoarthritis, right hip (principal); I21.4 Non-ST elevation (NSTEMI) myocardial infarction; I42.9 Cardiomyopathy, unspecified; S91.309A Unspecified open wound, unspecified foot, initial encounter; Z95.810 Presence of automatic (implantable) cardiac defibrillator; Z95.2 Presence of prosthetic heart valve | CPT/HCPCS: 99212 ==

== ENCOUNTER 2023-09-27 07:15 | Outpatient (REF) | payer MEDICARE, SELFPAY ==
[2023-09-27 10:08] LABS: MANUAL DIFF FLAG NO
[2023-09-27 10:19] LABS: Appearance Urine Cloudy; Color Urine Yellow; Glucose Urine UA >=1000 mg/dL (Negative); Leukocyte Esterase Urine Negative (Negative); Nitrite Urine Negative (Negative); PH 5.5 (5.0-9.0); Specific Gravity - Urine >= 1.030 (1.005-1.025); UMIC TRIGGER UACC YES; Urine Blood Negative (Negative); Urine Ketones Negative (Negative); Urine Protein Negative (Neg-Trace)
[2023-09-27 10:28] LABS: Basophils Percent Auto 0.9 % (0-2); Eosinophils Absolute Auto 0.1 X10*3/uL (0.0-0.4); Eosinophils Percent Auto 2.6 % (0-4); Hematocrit 38.9 % (37.0-47.0); Hemoglobin 11.8 g/dl (12.0-16.0); Imm Gran Abs Auto 0.01 X10*3/uL (0.00-0.03); Imm Gran Pct Auto 0.2 % (0.0-0.4); Lymphocytes Absolute Auto 0.9 X10*3/uL (1.2-4.9); Lymphocytes Percent Auto 20.2 % (20-40); Mean Corpuscular HGB Conc 30.3 g/dl (31.0-35.0); Mean Corpuscular Hemoglobin 25.5 pg (27.0-33.0); Mean Platelet Volume 10.7 fL (9.4-12.3); Monocytes Absolute Auto 0.7 X10*3/uL (0.1-1.2); Monocytes Percent Auto 14.1 % (2-11); Neutrophils Absolute Auto 2.9 x10*3/uL (2.0-8.3); Platelet Count 180 X10*3/uL (160-400); Red Blood Count 4.63 X10*6/uL (4.20-5.50); Red Cell Distribution Width 16.7 % (11.0-16.0); White Blood Count 4.6 X10*3/uL (4.8-10.8)
[2023-09-27 10:35] LABS: Bacteria Urine None Seen (None Seen); Calcium Oxalate Crystals Urine Present; Hyaline Casts Urine 0-2 /LPF (0-2); UACC Culture Trigger YES
[2023-09-27 10:37] LABS: RBC Urine 0-2 /HPF (0-2)
[2023-09-27 11:00] LABS: Alanine Aminotransferase 25 U/L (0-31); Albumin Level 4.2 g/dL (3.5-5.0); Alkaline Phosphatase 106 U/L (39-117); Anion Gap 14 (12-20); Aspartate Amino Transferase 26 U/L (5-31); Bilirubin Total 0.9 mg/dL (0.0-1.0); Blood Urea Nitrogen 19 mg/dL (9-16); Calcium 9.5 mg/dL (8.4-10.2); Carbon Dioxide 28 mmol/L (22-29); Chloride 104 mmol/L (96-108); Estimated Glomerular Filt Rate 45; Glucose Random 128 mg/dL (60-115); Potassium 3.9 mmol/L (3.3-5.1); Sodium 142 mmol/L (135-145); Total Protein 7.5 g/dL (6.5-8.0)
== END 2023-09-27 07:16 | disposition home or self-care (01) ==
LOC: HO.HMGCLDS 07:15
PROVIDERS: PCP Nurse Practitioner Family; Referring Provider Internal Medicine Hypertension Specialist; Visit Provider Nurse Practitioner Family
DX: Z01.818 Encounter for other preprocedural examination (principal); N18.9 Chronic kidney disease, unspecified; I50.9 Heart failure, unspecified; R82.90 Unspecified abnormal findings in urine
CPT/HCPCS: 36415; 80053; 81001; 85025; 87086

== ENCOUNTER → 2023-10-05 23:59 | Outpatient (BNV) | payer MEDICARE, SELFPAY ==
--- NOTE | 2023-10-08 16:05 | MHC.OFFVIS ---
Intake Intake Visit Reasons: Remote HF monitoring-[facility] Allergies adhesive tape [ADHESIVE TAPE] Allergy (Unknown, Verified 09/24/23 09:01) REDNESS,BLEEDING Iodinated Contrast Media [IVP DYE] Allergy (Unknown, Verified 09/24/23 09:01) HIVES Penicillins [PENICILLINS] Allergy (Unknown, Verified 09/24/23 09:01) NOT EFFECTIVE ether Allergy (Verified 09/24/23 09:01) Unknown EITHER Allergy (Unknown, Uncoded 09/24/23 09:01) PONV Flu shot Allergy (Unknown, Uncoded 09/24/23 09:01) unknown coreg Adverse Reaction (Intermediate, Uncoded 09/24/23 09:01) Rash [facility] Medical History (Updated 10/08/23 @ 12:40 by Christo Andrew MD) Heart failure with reduced ejection fraction Chronic heart failure with preserved ejection fraction (HFpEF) Mitral stenosis LBBB (left bundle branch block) HTN (hypertension) Paroxysmal atrial fibrillation Renal artery stenosis Peripheral vascular disease Aortic stenosis Coronary arteriosclerosis in [place] artery NSTEMI (non-ST elevated myocardial infarction) HLD (hyperlipidemia) Diabetes Carotid artery stenosis Carpal tunnel syndrome Surgical History History of total left hip arthroplasty (02/05/18) Mitral valve replaced Stented coronary artery Status post peripheral artery angioplasty with insertion of stent S/P TAVR (transcatheter aortic valve replacement) Family History Father Kidney failure Mother No problems noted. Brother Substance use disorder Social History Housing: House Patient Tobacco Use Status: Former Tobacco user Years Smoked: 59 years and quit 4 years ago e-Cigarette/Vaping Use: Currently Using Second Hand Smoke Exposure: Yes Current occupational status: retired Cognitive needs: No Hearing needs: No Vision needs: No Office Procedures Cardiac Device Check Cardiac Device Check Details: Remote heart failure report generated 10/05/2023. Heart failure parameters are stable [id number] Cardiac Device Interrogation, cardio physiologic monitor Procedure code (CPT) selection complete Assessment & Plan Assessment & Plan (1) Biventricular ICD (implantable cardioverter-defibrillator) in place: Comment: [facility] biventricular ICD placed November 2022 for severe LV systolic dysfunction with left bundle-branch block Code(s): Z95.810 - Presence of automatic (implantable) cardiac defibrillator Plan: See above Coding Level of Care Code Procedure Only Diagnoses Biventricular ICD (implantable cardioverter-defibrillator) in place Z95.810 CPT Codes Cardiac Device Check - Cardiac Device 15: [id number] Cardiac Device Interrogation, cardio physiologic monitor ([id number])
== END ==
PROVIDERS: PCP Nurse Practitioner Family; Visit Provider Internal Medicine Cardiovascular Disease
DX: Z45.02 Encounter for adjustment and management of automatic implantable cardiac defibrillator (principal)
CPT/HCPCS: 93297

== ENCOUNTER 2023-10-08 10:14 | Outpatient (AMB) | payer MEDICARE, SELFPAY ==
[2023-10-08 10:16] VITALS: BP 130/82; PULSE 60; BMI 29.5
--- NOTE | 2023-10-08 10:16 | A.OFFVIS_ITS ---
Intake Vital Signs 10/08/23 10:16 Height 5 ft 6 in Weight 182 lb 15.739 oz BMI 29.5 BP 130/82 Blood Pressure Location Rt brachial Position Sitting Pulse 60 Intake Visit Reasons: f/up per AC Intake Note: Follow-up per Vanessa with [facility] pacer [employer] Required: No Allergies adhesive tape [ADHESIVE TAPE] Allergy (Unknown, Verified 09/24/23 09:01) REDNESS,BLEEDING Iodinated Contrast Media [IVP DYE] Allergy (Unknown, Verified 09/24/23 09:01) HIVES Penicillins [PENICILLINS] Allergy (Unknown, Verified 09/24/23 09:01) NOT EFFECTIVE ether Allergy (Verified 09/24/23 09:01) Unknown EITHER Allergy (Unknown, Uncoded 09/24/23 09:01) PONV Flu shot Allergy (Unknown, Uncoded 09/24/23 09:01) unknown coreg Adverse Reaction (Intermediate, Uncoded 09/24/23 09:01) Rash Medication List - Last Reconciled 10/08/23 by Christo Andrew MD amiodarone 200 mg PO DAILY apixaban (Eliquis) 5 mg PO BID 90 days atorvastatin 80 mg PO DAILY blood sugar diagnostic (FreeStyle Lite Strips) tid testing cholecalciferol (vitamin D3) 50 mcg PO DAILY clopidogrel 75 mg PO DAILY diphenhydramine HCl (Benadryl Allergy) 50 mg PO BEDTIME PRN empagliflozin (Jardiance) 10 mg PO DAILY ezetimibe 10 mg PO DAILY FreeStyle Bhavani 2 [place] (flash glucose scanning reader) TID NS FreeStyle Bhavani 2 Sensor (flash glucose sensor) TID NS gabapentin 100 mg PO TID glipizide 10 mg PO DAILY isosorbide mononitrate ER 30 mg PO DAILY lancets (FreeStyle Lancets) bid testing for diabetes metformin 500 mg PO BID 90 days metoprolol succinate ER 25 mg PO DAILY nitroglycerin 0 mg sublingual nystatin 1 appl topical BID omega-3 fatty acids 2,000 mg PO BID pen needle, diabetic (BD Ultra-Fine Micro Pen Needle) daily, on days not on metformin torsemide 10 mg PO DAILY HPI HPI Comments History of Present Illness Details Karishma comes for 2 month follow-up. Overall she has been doing well in the last 2 months has had no hospitalization. She however says that she can not predict when she is going to get her heart failure syndrome. Still happens very suddenly despite although intervention she is undergone. She said she has no weight gain or worsening shortness of breath or orthopnea or abdominal distension or leg edema prior to having her decompensation. This has been really difficult for us to manage. Overall otherwise she has been doing well. She has no bleeding issues or neurologic events. She was recommended to undergo hip replacement surgery and advised for cardiology clearance although we felt that she was too high risk to be performed at [facility] and should be performed in a tertiary care level Hospital where that could be more cardiac support. She is not happy about it. She is taking all her medications. Denies any bleeding issues or neurologic events. Denies any anginal symptoms. No overt heart failure symptoms at this point time. No palpitations, lightheadedness, syncope, ICD discharge. [facility] Medical History (Updated 10/08/23 @ 12:40 by Christo Andrew MD) Heart failure with reduced ejection fraction Chronic heart failure with preserved ejection fraction (HFpEF) Mitral stenosis LBBB (left bundle branch block) HTN (hypertension) Paroxysmal atrial fibrillation Renal artery stenosis Peripheral vascular disease Aortic stenosis Coronary arteriosclerosis in [place] artery NSTEMI (non-ST elevated myocardial infarction) HLD (hyperlipidemia) Diabetes Carotid artery stenosis Carpal tunnel syndrome Surgical History History of total left hip arthroplasty (02/05/18) Mitral valve replaced Stented coronary artery Status post peripheral artery angioplasty with insertion of stent S/P TAVR (transcatheter aortic valve replacement) Family History Father Kidney failure Mother No problems noted. Brother Substance use disorder Social History Housing: House Patient Tobacco Use Status: Former Tobacco user Years Smoked: 59 years and quit 4 years ago e-Cigarette/Vaping Use: Currently Using Second Hand Smoke Exposure: Yes Current occupational status: retired Cognitive needs: No Hearing needs: No Vision needs: No Review of Systems Const Denies chills, Denies fatigue, Denies fever(s), Denies frequent falls, Denies weakness, Denies weight gain and Denies weight loss ENT Denies dizziness Card Denies chest pain, Denies leg edema, Denies lightheadedness, Denies palpitations, Denies dyspnea, Denies dyspnea on exertion, Denies orthopnea and Denies other (loss of consciousness) Resp Denies cough, Denies dyspnea and Denies dyspnea on exertion GI Denies hematochezia and Denies change in stool character Musc Denies abnormal gait, Denies muscle weakness, Denies numbness, Denies radiating pain into limb and Denies tingling Neuro Denies abnormal gait, Denies dizziness, Denies frequent falls, Denies numbness, Denies tingling and Denies weakness Endo Denies fatigue and Denies palpitations Physical Exam Vital Signs: Last Vital Signs Pulse 60 10/08/23 10:16 BP 130/82 10/08/23 10:16 BMI result Body Mass Index 29.5 Const General: cooperative, comfortable, alert and awake Nutritional Appearance: overweight and other (Frail elderly woman) Orientation/consciousness: patient oriented x3 Limitations: ambulation with cane HEENT Head: Yes normocephalic and Yes atraumatic Neck Neck: Yes trachea midline, Yes supple and Yes no JVD Resp Effort & Inspection: normal respiratory effort Auscultation: no crackles, no rales, no rhonchi, no wheezes and diminished lung sounds Cardio Jugular venous distension: no JVD Palpation: normal PMI Rate: regular rate Rhythm: regular rhythm Heart sounds: S1 normal heart sound present, S2 normal heart sound present, Murmur heart sound present systolic early, decrescendo and crescendo and Other heart sounds present (S4 present) Peripheral pulses: posterior tibial pulses not present and dorsalis pedis pulses not present GI Auscultation: normal bowel sounds Skin General skin exam: ecchymosis Neuro General: patient oriented x3 and no focal motor deficits Extrem General: Yes no clubbing, cyanosis or edema and Yes other (cold distal extremities without any cyanosis) Psych Appearance: grossly normal Office Procedures Cardiac Device Check Cardiac Device Check Details: Biventricular [facility] ICD in place. Programmed in DDDR at 60 beats per minute. Biventricular pacing 97% time. No episodes of atrial fibrillation noted. Atrial and RV pacing thresholds are adequate and in auto capture mode. LV pacing thresholds are slightly elevated and reprogrammed to provide adequate safety. Atrial ventricular sensing was adequate. Pacing and shock lead impedance is adequate. Battery life is at about 6 years [id number] Cardiac Device Check, multi lead implantable defibrillator Procedure code (CPT) selection complete EKG Details: EKG shows sinus rhythm with intermittent atrial pacing with ventricular paced rhythm with change in QRS complex which may suggest changing pacing [id number], Complete Assessment & Plan Assessment & Plan (1) Coronary arteriosclerosis in [place] artery: Comment: Cardiac cath done 11/06/18 showing mid and proximal RCA 70% stenosis, ostial LCx 80% stenosis. Managed medically. No report of anginal sounding symptoms. Code(s): I25.10 - Atherosclerotic heart disease of [place] coronary artery without angina pectoris Plan: Diffuse atherosclerotic disease with significant vascular stenosis bilateral carotids, coronary arteries, renal artery stenosis peripheral vascular disease. Patient currently on Plavix therapy which should continue. She is on dual lipid therapy including atorvastatin and ezetimibe. Target goal LDL should be at 50 mg/dL currently not having any anginal symptoms on metoprolol and isosorbide therapy. Blood pressure is optimized advised to monitor blood pressure at home maintain a log. Continue aggressive diabetes management goal hemoglobin A1c less than 7%. She remains at high risk for vascular events. (2) Heart failure with reduced ejection fraction: Code(s): I50.20 - Unspecified systolic (congestive) heart failure Plan: Heart failure with reduced ejection fraction much improved overall hospitalization status since multiple intervention although she continues to have immediate heart failure syndrome at lead to hospitalization. Etiology is unclear although possible ischemic heart failure still likely. Continue current diuretic does with torsemide. Not on angiotensin receptor antagonist due to chronic kidney disease. Continue metoprolol, isosorbide therapy. Continue Jardiance. Daily weight monitoring avoidance of salt loading was discussed. She understands and agrees. (3) Biventricular ICD (implantable cardioverter-defibrillator) in place: Comment: [facility] biventricular ICD placed November 2022 for severe LV systolic dysfunction with left bundle-branch block Code(s): Z95.810 - Presence of automatic (implantable) cardiac defibrillator Plan: Biventricular ICD in place, working well. Reprogrammed for adequate function with adequate safety. Will continue monitor remotely for heart failure as well as for device function. (4) S/P transcatheter mitral valve replacement (TMVR): Code(s): Z95.2 - Presence of prosthetic heart valve Plan: Status post transcatheter mitral valve replacement on a palliative basis with severe mitral stenosis related to mitral calcification. Recent echocardiogram shows mean gradient of 6-7 mm across the mitral valve. This is adequate. Gwendolyn nue SBE prophylaxis. Currently on full oral anticoagulation Eliquis. Continue aggressive risk factor modification. Will continue monitor echocardiogram on annual basis. (5) S/P TAVR (transcatheter aortic valve replacement): Comment: Echo done 02/26/20 shows EF 60-65%, mid LVH, mild to mod MS, normally functioning Bioprosthetic AVR with mean gradiant 8mmhg. Code(s): Z95.2 - Presence of prosthetic heart valve Plan: Status post transcatheter aortic valve replacement for severe aortic stenosis. Mean gradient is 12 mm Hg with well-functioning bioprosthetic aortic valve. Continue to monitor by echocardiogram on annual basis. Continue SBE prophylaxis as per ACC/[place] guidelines. (6) Paroxysmal atrial fibrillation: Comment: Hx PAF. No reports of recent heart palpitations. On Metoprolol for rate/ rhythm control. On Eliquis for anticoagulation. No report of bleeding. Code(s): I48.0 - Paroxysmal atrial fibrillation Plan: Paroxysmal atrial fibrillation which has remained suppressed on amiodarone therapy. Has done very well with rhythm control approach will continue pursue rhythm control approach. Continue amiodarone therapy. Annual check for amiodarone toxicity should be pursued. Continue full oral anticoagulation, currently on Eliquis 5 mg b.i.d.. Quarterly renal function test should be pursued. Patient can undergo hip surgery is currently optimized to undergo hip surgery but should be done at tertiary care center where there is more hemodynamic supp ort available from cardiac perspective. This was discussed with her. She is unhappy about it but she understands. Will follow up in the clinic in 3 months time, sooner p.r.n.. Greater than 40 minutes was spent in managing her complex care Coding Level of Care Code Est Pt Level 5 (03685) Diagnoses Coronary arteriosclerosis in [place] artery I25.10 Heart failure with reduced ejection fraction I50.20 Biventricular ICD (implantable cardioverter-defibrillator) in place Z95.810 S/P transcatheter mitral valve replacement (TMVR) Z95.2 S/P TAVR (transcatheter aortic valve replacement) Z95.2 Paroxysmal atrial fibrillation I48.0 CPT Codes Cardiac Device Check - Cardiac Device 6: [id number] Cardiac Device Check, multi lead implantable defibrillator ([id number]) EKG - CPT: 00841-[id number], Complete ([id number])
== END 2023-10-08 11:11 | disposition home or self-care (01) ==
PROVIDERS: PCP Nurse Practitioner Family; Visit Provider Internal Medicine Cardiovascular Disease
DX: I25.10 Atherosclerotic heart disease of native coronary artery without angina pectoris (principal); I50.20 Unspecified systolic (congestive) heart failure; Z95.810 Presence of automatic (implantable) cardiac defibrillator; Z95.2 Presence of prosthetic heart valve; I48.0 Paroxysmal atrial fibrillation
CPT/HCPCS: 93010; 93284; 99215

== ENCOUNTER → 2023-10-08 10:14 | Outpatient (BNVA) | payer MEDICARE, SELFPAY | PROVIDERS: PCP Nurse Practitioner Family; Visit Provider Internal Medicine Cardiovascular Disease | DX: I11.0 Hypertensive heart disease with heart failure (principal); I50.22 Chronic systolic (congestive) heart failure; I50.32 Chronic diastolic (congestive) heart failure; I05.0 Rheumatic mitral stenosis; I44.7 Left bundle-branch block, unspecified; I48.0 Paroxysmal atrial fibrillation; I25.10 Atherosclerotic heart disease of native coronary artery without angina pectoris; Z95.2 Presence of prosthetic heart valve; Z95.5 Presence of coronary angioplasty implant and graft; Z45.02 Encounter for adjustment and management of automatic implantable cardiac defibrillator | CPT/HCPCS: 93005; 99212 ==

== ENCOUNTER → 2023-10-12 23:59 | Outpatient (BNV) | payer MEDICARE, SELFPAY ==
--- NOTE | 2023-10-17 10:11 | MHC.OFFVIS ---
Intake Intake Visit Reasons: Remote device check- [facility] Allergies adhesive tape [ADHESIVE TAPE] Allergy (Unknown, Verified 09/24/23 09:01) REDNESS,BLEEDING Iodinated Contrast Media [IVP DYE] Allergy (Unknown, Verified 09/24/23 09:01) HIVES Penicillins [PENICILLINS] Allergy (Unknown, Verified 09/24/23 09:01) NOT EFFECTIVE ether Allergy (Verified 09/24/23 09:01) Unknown EITHER Allergy (Unknown, Uncoded 09/24/23 09:01) PONV Flu shot Allergy (Unknown, Uncoded 09/24/23 09:01) unknown coreg Adverse Reaction (Intermediate, Uncoded 09/24/23 09:01) Rash [facility] Medical History (Updated 10/08/23 @ 12:40 by Christo Andrew MD) Heart failure with reduced ejection fraction Chronic heart failure with preserved ejection fraction (HFpEF) Mitral stenosis LBBB (left bundle branch block) HTN (hypertension) Paroxysmal atrial fibrillation Renal artery stenosis Peripheral vascular disease Aortic stenosis Coronary arteriosclerosis in [place] artery NSTEMI (non-ST elevated myocardial infarction) HLD (hyperlipidemia) Diabetes Carotid artery stenosis Carpal tunnel syndrome Surgical History History of total left hip arthroplasty (02/05/18) Mitral valve replaced Stented coronary artery Status post peripheral artery angioplasty with insertion of stent S/P TAVR (transcatheter aortic valve replacement) Family History Father Kidney failure Mother No problems noted. Brother Substance use disorder Social History Housing: House Patient Tobacco Use Status: Former Tobacco user Years Smoked: 59 years and quit 4 years ago e-Cigarette/Vaping Use: Currently Using Second Hand Smoke Exposure: Yes Current occupational status: retired Cognitive needs: No Hearing needs: No Vision needs: No Office Procedures Cardiac Device Check Cardiac Device Check Details: Remote ICD report generated 10/12/2023. ICD function is adequate. Bi V pacing 97% of the time [id number] Cardiac Interrogation, implant defibrillator w/interim Procedure code (CPT) selection complete Assessment & Plan Assessment & Plan (1) Biventricular ICD (implantable cardioverter-defibrillator) in place: Comment: [facility] biventricular ICD placed November 2022 for severe LV systolic dysfunction with left bundle-branch block Code(s): Z95.810 - Presence of automatic (implantable) cardiac defibrillator Plan: See above Coding Level of Care Code Procedure Only Diagnoses Biventricular ICD (implantable cardioverter-defibrillator) in place Z95.810 CPT Codes Cardiac Device Check - Cardiac Device 13: [id number] Cardiac Interrogation, implant defibrillator w/interim ([id number])
== END ==
PROVIDERS: PCP Nurse Practitioner Family; Visit Provider Internal Medicine Cardiovascular Disease
DX: I50.1 Left ventricular failure, unspecified (principal); Z95.810 Presence of automatic (implantable) cardiac defibrillator
CPT/HCPCS: 93295

== ENCOUNTER 2024-01-07 10:38 | Outpatient (AMB) | payer MEDICARE, SELFPAY ==
[2024-01-07 10:39] VITALS: BP 106/60; PULSE 72; BMI 28.8
--- NOTE | 2024-01-07 10:39 | A.OFFVIS_ITS ---
Vital Signs 01/07/24 10:39 Height 5 ft 6 in Weight 178 lb 9.191 oz BMI 28.8 BP 106/60 Blood Pressure Location Lt brachial Position Sitting Pulse 72 Pulse Source Monitor Intake Visit Reasons: [address] [facility] check Intake Note: pt is here for pc check with ekg pt is doing good Accompanied by: Daughter Allergies adhesive tape [ADHESIVE TAPE] Allergy (Unknown, Verified 09/24/23 09:01) REDNESS,BLEEDING Iodinated Contrast Media [IVP DYE] Allergy (Unknown, Verified 09/24/23 09:01) HIVES Penicillins [PENICILLINS] Allergy (Unknown, Verified 09/24/23 09:01) NOT EFFECTIVE ether Allergy (Verified 09/24/23 09:01) Unknown EITHER Allergy (Unknown, Uncoded 09/24/23 09:01) PONV Flu shot Allergy (Unknown, Uncoded 09/24/23 09:01) unknown coreg Adverse Reaction (Intermediate, Uncoded 09/24/23 09:01) Rash Medication List - Last Reconciled 01/07/24 by Christo Andrew MD amiodarone 200 mg PO DAILY apixaban (Eliquis) 5 mg PO BID 90 days atorvastatin 80 mg PO DAILY blood sugar diagnostic (FreeStyle Lite Strips) tid testing cholecalciferol (vitamin D3) 50 mcg PO DAILY clopidogrel 75 mg PO DAILY diphenhydramine HCl (Benadryl Allergy) 50 mg PO BEDTIME PRN empagliflozin (Jardiance) 10 mg PO DAILY ezetimibe 10 mg PO DAILY FreeStyle Bhavani 2 [place] (flash glucose scanning reader) TID NS FreeStyle Bhavani 2 Sensor (flash glucose sensor) TID NS gabapentin 100 mg PO TID glipizide 10 mg PO DAILY isosorbide mononitrate ER 30 mg PO DAILY lancets (FreeStyle Lancets) bid testing for diabetes metformin 500 mg PO BID 90 days metoprolol succinate ER 25 mg PO DAILY nitroglycerin 0 mg sublingual nystatin 1 appl topical BID omega-3 fatty acids 2,000 mg (2 x 1,000 mg) PO BID pen needle, diabetic (BD Ultra-Fine Micro Pen Needle) daily, on days not on metformin torsemide 10 mg PO DAILY HPI Comments Details: Karishma comes for follow-up. She was admitted in October again with another episode of congestive heart failure. No obvious trigger for congestive heart failure. She said this was sudden-onset shortness of breath again. She had no associated chest pain. No associated palpitation irregular heartbeat. There is no episodes of atrial fibrillation. There was no clear fluid gain prior to the episode. She then went to the hospital underwent extensive workup including CHETAN and cardiac catheterization. There was no evidence of ischemia. There was concern for dysfunction of the prosthetic mitral valve although she underwent a CHETAN which showed no significant stenosis. She also had a cardiac catheterization which did not show any significant obstructive coronary artery disease. She was then discharged on her usual medications. [facility] Medical History Heart failure with reduced ejection fraction Chronic heart failure with preserved ejection fraction (HFpEF) Mitral stenosis LBBB (left bundle branch block) HTN (hypertension) Paroxysmal atrial fibrillation Renal artery stenosis Peripheral vascular disease Aortic stenosis Coronary arteriosclerosis in [place] artery NSTEMI (non-ST elevated myocardial infarction) HLD (hyperlipidemia) Diabetes Carotid artery stenosis Carpal tunnel syndrome Surgical History History of total left hip arthroplasty (02/05/18) Mitral valve replaced Stented coronary artery Status post peripheral artery angioplasty with insertion of stent S/P TAVR (transcatheter aortic valve replacement) Family History Father Kidney failure Mother No problems noted. Brother Substance use disorder Social History Housing: House Patient Tobacco Use Status: Former Tobacco user Years Smoked: 59 years and quit 4 years ago e-Cigarette/Vaping Use: Currently Using Second Hand Smoke Exposure: Yes Current occupational status: retired Cognitive needs: No Hearing needs: No Vision needs: No Review of Systems Const Denies weakness ENT Denies dizziness Card Denies chest pain, Denies chest pain with activity, Denies syncope, Denies rapid heart rate, Denies pedal edema, Denies edema, Denies leg edema, Denies lightheadedness, Denies palpitations, Denies dyspnea, Denies dyspnea on exertion and Denies orthopnea Resp Denies cough, Denies dyspnea and Denies dyspnea on exertion GI Denies hematochezia and Denies change in stool character Musc Denies abnormal gait, Denies muscle cramps, Denies muscle weakness, Denies numbness, Denies radiating pain into limb and Denies tingling Neuro Denies abnormal gait, Denies dizziness, Denies syncope, Denies numbness, Denies tingling and Denies weakness Endo Denies palpitations Physical Exam Vital Signs: Last Vital Signs Pulse 72 01/07/24 10:39 BP 106/60 01/07/24 10:39 BMI result Body Mass Index 28.8 Const General: cooperative, comfortable, alert and awake Nutritional Appearance: overweight and other (Frail elderly woman) Orientation/consciousness: patient oriented x3 Limitations: ambulation with cane HEENT Head: Yes normocephalic and Yes atraumatic Neck Neck: Yes trachea midline, Yes supple and Yes no JVD Resp Effort & Inspection: normal respiratory effort Auscultation: no crackles, no rales, no rhonchi, no wheezes and diminished lung sounds Cardio Jugular venous distension: no JVD Palpation: normal PMI Rate: regular rate Rhythm: regular rhythm Heart sounds: S1 normal heart sound present, S2 normal heart sound present, Murmur heart sound present systolic early, decrescendo and crescendo and Other heart sounds present (S4 present) Peripheral pulses: posterior tibial pulses not present and dorsalis pedis pulses not present GI Auscultation: normal bowel sounds Skin General skin exam: ecchymosis Neuro General: patient oriented x3 and no focal motor deficits Extrem General: Yes no clubbing, cyanosis or edema and Yes other (cold distal extremities without any cyanosis) Psych Appearance: grossly normal Office Procedures Cardiac Device Check Cardiac Device Check Details: Biventricular [facility] ICD in place. Programmed in DDDR at 60 beats per minute. Atrial pacing 52% time. Biventricular pacing 97% of time. Atrial ventricular sensing was adequate. No episodes of atrial fibrillation noted. Atrial pacing thresholds adequate and in our capture mode. RV pacing thresholds adequate and in auto capture mode. LV pacing thresholds adequate and reprogrammed to provide adequate safety. Pacing and shock lead impedance is stable. Battery life is at about 4.8 years [id number] Cardiac Device Check, multi lead implantable defibrillator Procedure code (CPT) selection complete EKG Details: EKG shows atrially sensed, ventricularly paced rhythm. [id number], Complete Assessment & Plan Assessment & Plan (1) Heart failure with reduced ejection fraction: Code(s): I50.20 - Unspecified systolic (congestive) heart failure Category: Medical Plan: Heart failure with reduced ejection fraction with another episode of sudden onset heart failure of unclear etiology. She did not have any significant coronary disease. The suspicion of dysfunction of the prosthetic mitral valve but this appears to have pain resolved and there is increased gradient but no significant stenosis of the prosthetic mitral valve. Obvious etiology is not clear. She has no episodes of atrial fibrillation. Clinically today she appears well. Consider possible recurrence of renal artery stenosis will suggest renal duplex. Currently on good diuretic regimen would continue torsemide as well as Jardiance therapy. Continue rhythm control approach. Bi V pacing working well although she has persistent significant LV systolic dysfunction. (2) Biventricular ICD (implantable cardioverter-defibrillator) in place: Comment: [facility] biventricular ICD placed November 2022 for severe LV systolic dysfunction with left bundle-branch block Code(s): Z95.810 - Presence of automatic (implantable) cardiac defibrillator Category: Medical Plan: Biventricular ICD in place, working well. Will follow remotely for heart failure as well as device check. (3) S/P transcatheter mitral valve replacement (TMVR): Code(s): Z95.2 - Presence of prosthetic heart valve Category: Surgical Plan: Status post transcatheter mitral valve replacement with significant mitral annular calcification with mildly increased gradient across the mitral valve with the valve area at 1.4 cm2 which is adequate. I do not think this is a possibility of giving her recurrent heart failure syndrome. SBE prophylaxis as per ACC/aha guidelines. Continue aggressive risk factor modification. (4) Paroxysmal atrial fibrillation: Comment: Hx PAF. No reports of recent heart palpitations. On Metoprolol for rate/ rhythm control. On Eliquis for anticoagulation. No report of bleeding. Code(s): I48.0 - Paroxysmal atrial fibrillation Category: Medical Plan: Paroxysmal atrial fibrillation has remained suppressed on amiodarone therapy. She is done well with rhythm control approach. Continue the same. Avoidance of stimulants was discussed. Continue full oral anticoagulation, currently on Eliquis 5 mg b.i.d.. Quarterly renal function test should be pursued. Annual check for amiodarone toxicity. (5) S/P TAVR (transcatheter aortic valve replacement): Comment: Echo done 02/26/20 shows EF 60-65%, mid LVH, mild to mod MS, normally functioning Bioprosthetic AVR with mean gradiant 8mmhg. Code(s): Z95.2 - Presence of prosthetic heart valve Category: Surgical Plan: Status post transcatheter aortic valve replacement. Mean gradient is within normal limits. Valve is working well. Will continue to monitor clinically. SBE prophylaxis as per ACC/aha guidelines. Continue aggressive risk factor modification. (6) Coronary arteriosclerosis in [place] artery: Comment: Cardiac cath done 11/06/18 showing mid and proximal RCA 70% stenosis, ostial LCx 80% stenosis. Managed medically. No report of anginal sounding symptoms. Code(s): I25.10 - Atherosclerotic heart disease of [place] coronary artery without angina pectoris Category: Medical Plan: CAD status post PCI. Recent cardiac catheterization showing no significant progressive CAD. Continue aggressive risk factor modification. Currently on 80 mg of atorvastatin target goal LDL less than 70 mg/dL. Continue aggressive blood pressure control. Which is currently well optimized diabetes management under your care with goal hemoglobin A1c less than 7%. Will follow up in the clinic in 6 months time, sooner p.r.n.. Greater than 45 minutes was spent in managing his complex care. Coding Level of Care Code Est Pt Level 5 (78776) Diagnoses Heart failure with reduced ejection fraction I50.20 Biventricular ICD (implantable cardioverter-defibrillator) in place Z95.810 S/P transcatheter mitral valve replacement (TMVR) Z95.2 Paroxysmal atrial fibrillation I48.0 S/P TAVR (transcatheter aortic valve replacement) Z95.2 Coronary arteriosclerosis in [place] artery I25.10 CPT Codes Cardiac Device Check - Cardiac Device 6: [id number] Cardiac Device Check, multi lead implantable defibrillator ([id number]) EKG - CPT: 98801-[id number], Complete ([id number])
== END 2024-01-07 11:13 | disposition home or self-care (01) ==
PROVIDERS: PCP Nurse Practitioner Family; Visit Provider Internal Medicine Cardiovascular Disease
DX: I50.20 Unspecified systolic (congestive) heart failure (principal); Z95.810 Presence of automatic (implantable) cardiac defibrillator; Z95.2 Presence of prosthetic heart valve; I48.0 Paroxysmal atrial fibrillation; I25.10 Atherosclerotic heart disease of native coronary artery without angina pectoris
CPT/HCPCS: 93010; 93284; 99215

== ENCOUNTER → 2024-01-07 10:38 | Outpatient (BNVA) | payer MEDICARE, SELFPAY | PROVIDERS: PCP Nurse Practitioner Family; Visit Provider Internal Medicine Cardiovascular Disease | DX: I50.20 Unspecified systolic (congestive) heart failure (principal); I25.10 Atherosclerotic heart disease of native coronary artery without angina pectoris; Z95.810 Presence of automatic (implantable) cardiac defibrillator; Z95.2 Presence of prosthetic heart valve; Z79.01 Long term (current) use of anticoagulants; Z79.899 Other long term (current) drug therapy | CPT/HCPCS: 93005; 99212 ==

== ENCOUNTER → 2024-01-11 23:59 | Outpatient (BNV) | payer MEDICARE, SELFPAY ==
--- NOTE | 2024-01-16 14:29 | A.OFFVIS_ITS ---
Intake Visit Reasons: Remote device check- [facility] Allergies adhesive tape [ADHESIVE TAPE] Allergy (Unknown, Verified 09/24/23 09:01) REDNESS,BLEEDING Iodinated Contrast Media [IVP DYE] Allergy (Unknown, Verified 09/24/23 09:01) HIVES Penicillins [PENICILLINS] Allergy (Unknown, Verified 09/24/23 09:01) NOT EFFECTIVE ether Allergy (Verified 09/24/23 09:01) Unknown EITHER Allergy (Unknown, Uncoded 09/24/23 09:01) PONV Flu shot Allergy (Unknown, Uncoded 09/24/23 09:01) unknown coreg Adverse Reaction (Intermediate, Uncoded 09/24/23 09:01) Rash [facility] Medical History Heart failure with reduced ejection fraction Chronic heart failure with preserved ejection fraction (HFpEF) Mitral stenosis LBBB (left bundle branch block) HTN (hypertension) Paroxysmal atrial fibrillation Renal artery stenosis Peripheral vascular disease Aortic stenosis Coronary arteriosclerosis in [place] artery NSTEMI (non-ST elevated myocardial infarction) HLD (hyperlipidemia) Diabetes Carotid artery stenosis Carpal tunnel syndrome Surgical History History of total left hip arthroplasty (02/05/18) Mitral valve replaced Stented coronary artery Status post peripheral artery angioplasty with insertion of stent S/P TAVR (transcatheter aortic valve replacement) Family History Father Kidney failure Mother No problems noted. Brother Substance use disorder Social History Housing: House Patient Tobacco Use Status: Former Tobacco user Years Smoked: 59 years and quit 4 years ago e-Cigarette/Vaping Use: Currently Using Second Hand Smoke Exposure: Yes Current occupational status: retired Cognitive needs: No Hearing needs: No Vision needs: No Office Procedures Cardiac Device Check Cardiac Device Check Details: Remote ICD report generated 01/11/2024. ICD function is adequate. No arrhythmias detected. Bi V pacing 97% of the time [id number] Cardiac Interrogation, implant defibrillator w/interim Procedure code (CPT) selection complete Assessment & Plan Assessment & Plan (1) Biventricular ICD (implantable cardioverter-defibrillator) in place: Comment: [facility] biventricular ICD placed November 2022 for severe LV systolic dysfunction with left bundle-branch block Code(s): Z95.810 - Presence of automatic (implantable) cardiac defibrillator Category: Medical Plan: See above Coding Level of Care Code Procedure Only Diagnoses Biventricular ICD (implantable cardioverter-defibrillator) in place Z95.810 CPT Codes Cardiac Device Check - Cardiac Device 13: [id number] Cardiac Interrogation, implant defibrillator w/interim ([id number])
== END ==
PROVIDERS: PCP Nurse Practitioner Family; Visit Provider Internal Medicine Cardiovascular Disease
DX: I44.7 Left bundle-branch block, unspecified (principal); Z95.810 Presence of automatic (implantable) cardiac defibrillator
CPT/HCPCS: 93295

== ENCOUNTER 2024-02-14 13:47 | Outpatient (AMB) | payer MEDICARE, SELFPAY ==
[2024-02-14 13:49] VITALS: BP 110/62; PULSE 70; O2SAT 94; BMI 28.7
--- NOTE | 2024-02-14 13:49 | MHC.PC.OV ---
Vital Signs 02/14/24 13:49 Height 5 ft 6 in Weight 178 lb BMI 28.7 BP 110/62 Blood Pressure Location Lt brachial Position Sitting Pulse 70 Pulse Source Pulse Oximeter Pulse Oximetry (%) 94 Oxygen Delivery Method Room Air Intake Visit Reasons: Follow up Intake Note: pt is here for follow up [employer] Inspector Required: No Accompanied by: Self / Same As Patient Allergies adhesive tape [ADHESIVE TAPE] Allergy (Unknown, Verified 02/14/24 13:49) REDNESS,BLEEDING Iodinated Contrast Media [IVP DYE] Allergy (Unknown, Verified 02/14/24 13:49) HIVES Penicillins [PENICILLINS] Allergy (Unknown, Verified 02/14/24 13:49) NOT EFFECTIVE ether Allergy (Verified 02/14/24 13:49) Unknown EITHER Allergy (Unknown, Uncoded 09/24/23 09:01) PONV Flu shot Allergy (Unknown, Uncoded 09/24/23 09:01) unknown coreg Adverse Reaction (Intermediate, Uncoded 09/24/23 09:01) Rash Medication List - Last Reconciled 02/14/24 by TACO Oconnell- amiodarone 200 mg PO DAILY apixaban (Eliquis) 5 mg PO BID 90 days atorvastatin 80 mg PO DAILY blood sugar diagnostic (FreeStyle Lite Strips) tid testing cholecalciferol (vitamin D3) 50 mcg PO DAILY clopidogrel 75 mg PO DAILY diphenhydramine HCl (Benadryl Allergy) 50 mg PO BEDTIME PRN empagliflozin (Jardiance) 10 mg PO DAILY ezetimibe 10 mg PO DAILY FreeStyle Bhavani 2 [place] (flash glucose scanning reader) TID NS FreeStyle Bhavani 2 Sensor (flash glucose sensor) TID NS gabapentin 100 mg PO TID glipizide 10 mg PO DAILY isosorbide mononitrate ER 30 mg PO DAILY lancets (FreeStyle Lancets) bid testing for diabetes metformin 500 mg PO BID 90 days metoprolol succinate ER 25 mg PO DAILY nitroglycerin 0 mg sublingual nystatin 1 appl topical BID omega-3 fatty acids 2,000 mg (2 x 1,000 mg) PO BID pen needle, diabetic (BD Ultra-Fine Micro Pen Needle) daily, on days not on metformin torsemide 10 mg PO DAILY Tobacco use date assessed: 02/14/24 Fall risk assessment: No Falls in past year Last assessed Fall Risk: 08/15/24 Dental Screening Dental Screen Date: 09/12/23 HPI Follow up HPI Details Pt is a diabetic, on a statin. A1C in office today is 6.2. Microalbumin is up to date. Denies polyuria, polydipsia, and neuropathy. Pt denies any signs and symptoms of hypoglycemia and does know how to correct it. [facility] Medical History Heart failure with reduced ejection fraction Chronic heart failure with preserved ejection fraction (HFpEF) Mitral stenosis LBBB (left bundle branch block) HTN (hypertension) Paroxysmal atrial fibrillation Renal artery stenosis Peripheral vascular disease Aortic stenosis Coronary arteriosclerosis in [place] artery NSTEMI (non-ST elevated myocardial infarction) HLD (hyperlipidemia) Diabetes Carotid artery stenosis Carpal tunnel syndrome Surgical History History of total left hip arthroplasty (02/05/18) Mitral valve replaced Stented coronary artery Status post peripheral artery angioplasty with insertion of stent S/P TAVR (transcatheter aortic valve replacement) Family History Father Kidney failure Mother No problems noted. Brother Substance use disorder Social History Housing: House Patient Tobacco Use Status: Current someday Tobacco user Years Smoked: 59 years and quit 4 years ago e-Cigarette/Vaping Use: Currently Using Second Hand Smoke Exposure: Yes Current occupational status: retired Cognitive needs: No Hearing needs: No Vision needs: No Questionnaire PHQ-9 Over the last 2 weeks, how often have you been bothered by any of the following problems? 1. Little interest or pleasure in doing things: not at all 2. Feeling down, depressed, or hopeless: not at all 3. Trouble falling or staying asleep, or sleeping too much: not at all 4. Feeling tired or having little energy: not at all 5. Poor appetite or overeating: not at all 6. Feeling bad about yourself - or that you are a failure or have let yourself or your family down: not at all 7. Trouble concentrating on things, such as reading the newspaper or watching television: not at all 8. Moving or speaking so slowly that other people could have noticed. Or the opposite - being so fidgety or restless that you have been moving around a lot more than usual: not at all 9. Thoughts that you would be better off or of hurting yourself in some way: not at all Total score: 0 Depression Screening Interpretation: Negative Depression Screening Done: Yes 23751 - PHQ-9 Billing: Yes Source: Developed by Drs. Giacomo Cornell, Liz Timmons, Jorge Chiu and colleagues, with an educational luma from [employer]. Thrive Questionnaire Date Thrive assessed: 02/14/24 I am a: Patient What is your living situation today?: I have a steady place to live Within the past 12 months, did the food you bought not last and you didn't have the money to get more?: Never true Within the past 12 months, did you worry whether your food would run out before you got money to buy more?: Never true Do you have trouble paying for medicines?: No Do you have trouble getting transportation to medical appointments?: No Do you have trouble paying your heating and electricity bill?: No Do you have trouble taking care of your child, family member or friend?: No Do you have trouble with day-to-day activities such as bathing, preparing meals, shopping, managing finances, etc.?: No Are you currently unemployed and looking for a job?: No Are you interested in more education?: No Please select the resources that you would like help with: None Currently or been in a relationship where the following occur: No concerns reported THRIVE Score: 0 AUDIT C Alcohol Use Questionnaire (AUDIT-C) 1. How often do you have a drink containing alcohol?: Never 3. How often do you have six or more drinks on one occasion?: Never Total Score: 0 Score Reviewed/Action Taken: Yes LEOBARDO-7 AMB Questionnaire LEOBARDO-7 Date LEOBARDO - 7 assessed: 02/14/24 Feeling nervous, anxious, or on edge: 2 = More than half the days Not being able to stop or control worryin = More than half the days Worrying too much about different things: 2 = More than half the days Trouble relaxin = Several days Being so restless that it is hard to sit still: 1 = Several days Becoming easily annoyed or irritable: 0 = Not at all Feeling afraid as if something awful might happen: 0 = Not at all Total LEOBARDO-7 score (0-4 normal; 5-9 mild; 10-14 moderate; 15-21 severe): 8 Source: Developed by Drs. Giacomo Cornell, Liz Timmons, Jorge Chiu and colleagues, with an educational luma from [employer]. LEOBARDO-7 Assessment Billing LEOBARDO-7 Assessment Tool: LEOBARDO-7 Assessment 45472 Review of Systems Const Reports as per HPI Physical exam (Primary Care) Vital Signs: Last Vital Signs Pulse 70 02/14/24 13:49 BP 110/62 02/14/24 13:49 Pulse Ox 94 02/14/24 13:49 Oxygen Delivery Method Room Air 02/14/24 13:49 BMI result Body Mass Index 28.7 Tobacco/Smoking Status: Tobacco use Status Tobacco use date assessed 02/14/24 02/14/24 13:51 Patient Tobacco Use Status Current someday Tobacco 02/14/24 13:51 e-Cigarette/Vaping Use Currently Using 02/14/24 13:51 PHQ-9: PHQ-9 Score PHQ-9: Total score 0 02/14/24 14:17 Depression Screening Interpretation: Negative Thrive Assessment: Date of Thrive Assessment Date Thrive assessed 02/14/24 02/14/24 13:51 Currently or been in a relationship where the following occur: No concerns reported Const General: cooperative Orientation/consciousness: patient oriented x3 Resp Other: very faint scattered rhonchi, though moving air Effort & Inspection: normal respiratory effort Cardio Rate: regular rate Rhythm: regular rhythm Heart sounds: S1 normal heart sound present, S2 normal heart sound present and Murmur heart sound present systolic Neuro General: patient oriented x3 Extrem Other: bilat feet: + sensation with use of monofilament, feet intact. no edema to BLE Psych Appearance: grossly normal Mental Status: mental status grossly normal Speech and movement: Normal speech and movement present Affect: normal affect Attitude: cooperative Thought process: Normal thought process present Thought content: Normal thought content present Insight: Good insight present (Psych) Judgement: Good judgement present (Psych) Assessment and Plan Assessment & Plan (1) Diabetes: Code(s): E11.9 - Type 2 diabetes mellitus without complications Plan: Labs ordered Plan The patient agreed to the use of a medical record librarian for this encounter. Scribed for YANDY Browning by Janet Power medical record librarian, on 02/14/2024 at 14:15 EST. Orders: Orders Complete Blood Count Auto Diff Today E11.9 - Type 2 diabetes mellitus without complications UA CC w/rflx Micro + Cult Today E11.9 - Type 2 diabetes mellitus without complications Microalbumin, Random (w Creat) Today E11.9 - Type 2 diabetes mellitus without complications Comprehensive [place]. Panel Fast Today E11.9 - Type 2 diabetes mellitus without complications TSH reflex Free T4 Today E11.9 - Type 2 diabetes mellitus without complications Lipid Panel Today E11.9 - Type 2 diabetes mellitus without complications Coding Level of Care Code Est Pt Level 3 (84033) Diagnoses Diabetes E11.9 Additional Codes LEOBARDO-7 Assessment Billing - LEOBARDO-7 Assessment Tool: LEOBARDO-7 Assessment 19624 ([id number])
== END 2024-02-14 14:31 | disposition home or self-care (01) ==
PROVIDERS: PCP Nurse Practitioner Family; Visit Provider Nurse Practitioner Family
DX: E11.9 Type 2 diabetes mellitus without complications (principal)
CPT/HCPCS: 83036; 99213

== ENCOUNTER → 2024-03-18 23:59 | Outpatient (BNV) | payer MEDICARE, SELFPAY ==
--- NOTE | 2024-03-20 15:00 | A.OFFVIS_ITS ---
Intake Visit Reasons: Remote HF monitoring- [facility] Allergies adhesive tape [ADHESIVE TAPE] Allergy (Unknown, Verified 02/14/24 13:49) REDNESS,BLEEDING Iodinated Contrast Media [IVP DYE] Allergy (Unknown, Verified 02/14/24 13:49) HIVES Penicillins [PENICILLINS] Allergy (Unknown, Verified 02/14/24 13:49) NOT EFFECTIVE ether Allergy (Verified 02/14/24 13:49) Unknown EITHER Allergy (Unknown, Uncoded 09/24/23 09:01) PONV Flu shot Allergy (Unknown, Uncoded 09/24/23 09:01) unknown coreg Adverse Reaction (Intermediate, Uncoded 09/24/23 09:01) Rash [facility] Medical History Heart failure with reduced ejection fraction Chronic heart failure with preserved ejection fraction (HFpEF) Mitral stenosis LBBB (left bundle branch block) HTN (hypertension) Paroxysmal atrial fibrillation Renal artery stenosis Peripheral vascular disease Aortic stenosis Coronary arteriosclerosis in [place] artery NSTEMI (non-ST elevated myocardial infarction) HLD (hyperlipidemia) Diabetes Carotid artery stenosis Carpal tunnel syndrome Surgical History History of total left hip arthroplasty (02/05/18) Mitral valve replaced Stented coronary artery Status post peripheral artery angioplasty with insertion of stent S/P TAVR (transcatheter aortic valve replacement) Family History Father Kidney failure Mother No problems noted. Brother Substance use disorder Social History Housing: House Patient Tobacco Use Status: Current someday Tobacco user Years Smoked: 59 years and quit 4 years ago e-Cigarette/Vaping Use: Currently Using Second Hand Smoke Exposure: Yes Current occupational status: retired Cognitive needs: No Hearing needs: No Vision needs: No Office Procedures Cardiac Device Check Cardiac Device Check Details: Remote heart failure report generated 03/18/2024. Heart failure parameters are s table [id number] Cardiac Device Interrogation, cardio physiologic monitor Procedure code (CPT) selection complete Assessment & Plan Assessment & Plan (1) Biventricular ICD (implantable cardioverter-defibrillator) in place: Comment: [place] biventricular ICD placed November 2022 for severe LV systolic dysfunction with left bundle-branch block Code(s): Z95.810 - Presence of automatic (implantable) cardiac defibrillator Category: Medical Plan: See above Coding Level of Care Code Procedure Only Diagnoses Biventricular ICD (implantable cardioverter-defibrillator) in place Z95.810 CPT Codes Cardiac Device Check - Cardiac Device 15: [id number] Cardiac Device Interrogation, cardio physiologic monitor ([id number])
== END ==
PROVIDERS: PCP Nurse Practitioner Family; Visit Provider Internal Medicine Cardiovascular Disease
DX: I50.20 Unspecified systolic (congestive) heart failure (principal); Z95.810 Presence of automatic (implantable) cardiac defibrillator
CPT/HCPCS: 93297